=== PATIENT | female | born 1945 | race Caucasian/White ===

== ENCOUNTER 2016-08-31 09:44 | Inpatient (IN) | payer MEDICARE ==
[2016-08-31] MEDS ORDERED: IPRATROPIUM-ALBUTEROL 3 ML NEB INHALATION STA (10:10)
--- NOTE | 2016-08-31 10:14 | ED ---
General Adult HPI - General Chief complaint: Arrhythmia/Palpitations Stated complaint: rapid heart rate Time Seen by Provider: 08/31/16 09:50 Source: patient, RN notes reviewed Mode of arrival: wheelchair Limitations: physical limitation - History of Present Illness Initial comments: This is a 71-year-old female presents emergency Department complaining shortness of breath per patient states she has no history of CHF and no history of COPD per patient states he started having intermittent shortness of breath last week and then over the last 2-3 days is become constant and getting slowly worse. Patient states she can barely catch her breath at this point. Patient denies any chest pain or palpitations. Patient states she does have history of atrial fibrillation. Patient denies any recent fever chills or cough. Patient denies any leg edema or calf pain. Patient denies any headache patient denies numbness weakness. Patient denies any lightheadedness dizziness or near syncopal episode. Patient denies any abdominal pain patient denies nausea vomiting diarrhea - Related Data Home Medications Medication Instructions Recorded Confirmed DULoxetine HCL 60 mg PO BID 10/20/14 08/31/16 Flecainide [Tambocor] 50 mg PO Q12HR 10/20/14 08/31/16 Warfarin [Coumadin] 7.5 mg PO DAILY 10/20/14 08/31/16 cloNIDine HCL [Catapres] 0.1 mg PO BID 10/20/14 08/31/16 Aspirin 81 mg PO DAILY 06/08/15 08/31/16 amLODIPine [Norvasc] 10 mg PO DAILY 06/08/15 08/31/16 Oxybutynin Chloride [Oxybutynin 15 mg PO DAILY 07/11/16 08/31/16 Chloride ER] Atenolol [Tenormin] 25 mg PO DAILY 08/23/16 08/31/16 Lovastatin [Mevacor] 40 mg PO HS 08/31/16 08/31/16 Potassium Chloride [Klor-Con 8] 8 meq PO DAILY 08/31/16 08/31/16 Tylenol Extra Strength 500/15ml Liq 5 ml PO DIRECTED PRN 08/31/16 08/31/16 Allergies Allergy/AdvReac Type Severity Reaction Status Date / Time No Known Allergies Allergy Verified 08/31/16 09:52 Review of Systems ROS Statement: Those systems with pertinent positive or pertinent negative responses have been documented in the HPI. ROS Other: All systems not noted in ROS Statement are negative. Past Medical History Past Medical History: Atrial Fibrillation, CVA/TIA, Hypertension, Liver Disease , Skin Disorder Additional Past Medical History / Comment(s): TIA x2,Hepatitis as a child, circulation problems with sores on legs, wound left lower leg History of Any Multi-Drug Resistant Organisms: None Reported Past Surgical History: Appendectomy, Cholecystectomy, Heart Catheterization, Hysterectomy, Orthopedic Surgery Additional Past Surgical History / Comment(s): Bilateral cataracts, arthroscopy both knees, carotid cath. Past Anesthesia/Blood Transfusion Reactions: No Reported Reaction Past Psychological History: No Psychological Hx Reported Smoking Status: Never smoker Past Alcohol Use History: None Reported Past Drug Use History: None Reported - Past Family History Mother Family Medical History: Dementia, Diabetes Mellitus Additional Family Medical History / Comment(s): age 89 Father Additional Family Medical History / Comment(s): age 70's from heart attack General Exam - General Exam Comments Initial Comments: GENERAL: Patient is well-developed and well-nourished. Patient is nontoxic and well- hydrated and is in mild distress. ENT: Neck is soft and supple. No significant lymphadenopathy is noted. Oropharynx is clear. Moist mucous membranes. Neck has full range of motion without eliciting any pain. EYES: The sclera were anicteric and conjunctiva were pink and moist. Extraocular movements were intact and pupils were equal round and reactive to light. Eyelids were unremarkable. PULMONARY: Patient had scattered expiratory wheezing no crackles were heard CARDIOVASCULAR: Patient irregular heartbeat at about 130 beats a minute. ABDOMEN: Soft and nontender with normal bowel sounds. No palpable organomegaly was noted. There is no palpable pulsatile mass. SKIN: Skin is clear with no lesions or rashes and otherwise unremarkable. NEUROLOGIC: Patient is alert and oriented x3. Cranial nerves II through XII are grossly intact. Motor and sensory are also intact. Normal speech, volume and content. Symmetrical smile. MUSCULOSKELETAL: Normal extremities with adequate strength and full range of motion. No lower extremity swelling or edema. No calf tenderness. LYMPHATICS: No significant lymphadenopathy is noted PSYCHIATRIC: Normal psychiatric evaluation. Limitations: physical limitation Course Vital Signs 08/31/16 08/31/16 08/31/16 09:50 10:28 11:10 Temperature 97.8 F Pulse Rate 115 H 111 H 103 H Respiratory 20 Rate Blood Pressure 122/80 O2 Sat by Pulse 86 L Oximetry 08/31/16 08/31/16 08/31/16 11:24 11:26 12:37 Temperature Pulse Rate 112 H 115 H 111 H Respiratory 18 18 Rate Blood Pressure 117/73 122/71 O2 Sat by Pulse 98 96 Oximetry Medical Decision Making - Medical Decision Making EKG shows atrial fibrillation with rapid ventricular response at 113 bpm QRS is 102 QT interval 374 QTC is 513. Patient's EKG shows no ST segment elevation or depression there is some T-wave inversions in leads 1 and aVL and some flattening of the T waves in precordial leads throughout Chest x-ray shows pulmonary edema. I went back into reevaluate the patient I told her her chest x-ray showed pulmonary edema and I will be giving her Lasix patient states she has stopped taking that at home because she was urinating too much. I gave the patient Lasix in the ER Nitropaste and admitted the patient spoke with Dr. Sanchez and wrote admitting orders. Gave patient Lasix and nitro paste on the floor. - Lab Data Result diagrams: 08/31/16 10:27 08/31/16 10:27 Lab Results 08/31/16 08/31/16 08/31/16 Range/Units 10:27 10:27 10:27 WBC 6.4 (3.8-10.6) k/uL RBC 3.98 (3.80-5.40) m/uL Hgb 12.3 (11.4-16.0) gm/dL Hct 39.4 (34.0-46.0) % MCV 99.0 (80.0-100.0) fL MCH 31.0 (25.0-35.0) pg MCHC 31.3 (31.0-37.0) g/dL RDW 13.4 (11.5-15.5) % Plt Count 170 (150-450) k/uL Neutrophils % 78 % Lymphocytes % 10 % Monocytes % 8 % Eosinophils % 1 % Basophils % 0 % Neutrophils # 5.0 (1.3-7.7) k/uL Lymphocytes # 0.6 L (1.0-4.8) k/uL Monocytes # 0.5 (0-1.0) k/uL Eosinophils # 0.1 (0-0.7) k/uL Basophils # 0.0 (0-0.2) k/uL Hypochromasia Slight PT (9.0-12.0) sec INR (<1.1) APTT (22.0-30.0) sec D-Dimer (<0.60) mg/L FEU Sodium 146 H (137-145) mmol/L Potassium 4.5 (3.5-5.1) mmol/L Chloride 105 (98-107) mmol/L Carbon Dioxide 28 (22-30) mmol/L Anion Gap 13 mmol/L BUN 17 (7-17) mg/dL Creatinine 0.63 (0.52-1.04) mg/dL Est GFR (MDRD) Af Amer >60 (>60 ml/min/1.73 sqM) Est GFR (MDRD) Non-Af >60 (>60 ml/min/1.73 sqM) Glucose 97 (74-99) mg/dL Calcium 8.7 (8.4-10.2) mg/dL Magnesium 1.9 (1.6-2.3) mg/dL Total Bilirubin 1.6 H (0.2-1.3) mg/dL AST 39 H (14-36) U/L ALT 36 (9-52) U/L Alkaline Phosphatase 156 H (38-126) U/L Total Creatine Kinase 85 (30-135) U/L CK-MB (CK-2) 1.2 (0.0-2.4) ng/mL CK-MB (CK-2) Rel Index 1.4 Troponin I <0.012 (0.000-0.034) ng/mL NT-Pro-B Natriuret Pep pg/mL Total Protein 7.7 (6.3-8.2) g/dL Albumin 3.4 L (3.5-5.0) g/dL 08/31/16 08/31/16 Range/Units 10:27 10:27 WBC (3.8-10.6) k/uL RBC (3.80-5.40) m/uL Hgb (11.4-16.0) gm/dL Hct (34.0-46.0) % MCV (80.0-100.0) fL MCH (25.0-35.0) pg MCHC (31.0-37.0) g/dL RDW (11.5-15.5) % Plt Count (150-450) k/uL Neutrophils % % Lymphocytes % % Monocytes % % Eosinophils % % Basophils % % Neutrophils # (1.3-7.7) k/uL Lymphocytes # (1.0-4.8) k/uL Monocytes # (0-1.0) k/uL Eosinophils # (0-0.7) k/uL Basophils # (0-0.2) k/uL Hypochromasia PT 28.8 H (9.0-12.0) sec INR 3.0 (<1.1) APTT 33.8 H (22.0-30.0) sec D-Dimer 1.06 H (<0.60) mg/L FEU Sodium (137-145) mmol/L Potassium (3.5-5.1) mmol/L Chloride (98-107) mmol/L Carbon Dioxide (22-30) mmol/L Anion Gap mmol/L BUN (7-17) mg/dL Creatinine (0.52-1.04) mg/dL Est GFR (MDRD) Af Amer (>60 ml/min/1.73 sqM) Est GFR (MDRD) Non-Af (>60 ml/min/1.73 sqM) Glucose (74-99) mg/dL Calcium (8.4-10.2) mg/dL Magnesium (1.6-2.3) mg/dL Total Bilirubin (0.2-1.3) mg/dL AST (14-36) U/L ALT (9-52) U/L Alkaline Phosphatase (38-126) U/L Total Creatine Kinase (30-135) U/L CK-MB (CK-2) (0.0-2.4) ng/mL CK-MB (CK-2) Rel Index Troponin I (0.000-0.034) ng/mL NT-Pro-B Natriuret Pep 1630 pg/mL Total Protein (6.3-8.2) g/dL Albumin (3.5-5.0) g/dL Critical Care Time Critical Care Time: Yes Total Critical Care Time: 35 Disposition Clinical Impression: Acute pulmonary edema Disposition: ADMITTED IP TO THIS [facility] Time of Disposition: 13:01
[2016-08-31 10:41] LABS: Basophils % (A) 0 %; CH 30.5; Eosinophils # (A) 0.1 k/uL (0-0.7); Eosinophils % (A) 1 %; HCT 39.4 % (34.0-46.0); HDW 2.59; HGB 12.3 gm/dL (11.4-16.0); Hypochromasia Slight; Luc # (Auto) 0.15; Luc % (Auto) 2; Lymphocytes # (A) 0.6 k/uL (1.0-4.8); Lymphocytes % (A) 10 %; MCHC 31.3 g/dL (31.0-37.0); Mean Platelet Volume 7.7; Monocytes # (A) 0.5 k/uL (0-1.0); Monocytes % (A) 8 %; Neutrophils % (A) 78 %; RBC 3.98 m/uL (3.80-5.40); RDW 13.4 % (11.5-15.5); WBC 6.4 k/uL (3.8-10.6); WBC (Perox) 5.91
--- NOTE | 2016-08-31 10:47 | XR ---
EXAMINATION TYPE: XR chest 2V DATE OF EXAM: 08/31/2016 10:42 AM COMPARISON: NONE HISTORY: Difficulty breathing FINDINGS: There are bilateral pleural effusions with cardiomegaly and bibasilar infiltrate. There is a diffuse interstitial pattern. Atherosclerotic change aorta. IMPRESSION: 1. Correlate for CHF with bilateral effusion.
[2016-08-31 10:50] LABS: ALT 36 U/L (9-52); AST 39 U/L (14-36); Alkaline Phosphatase 156 U/L (38-126); Anion Gap 13 mmol/L; Blood Urea Nitrogen 17 mg/dL (7-17); Calcium 8.7 mg/dL (8.4-10.2); Carbon Dioxide 28 mmol/L (22-30); Chloride 105 mmol/L (98-107); Glucose 97 mg/dL (74-99); Magnesium 1.9 mg/dL (1.6-2.3); Non-African American GFR(MDRD) >60 (>60 ml/min/1.73 sqM); Potassium 4.5 mmol/L (3.5-5.1); Sodium 146 mmol/L (137-145); Total Bilirubin 1.6 mg/dL (0.2-1.3); Total Protein 7.7 g/dL (6.3-8.2)
[2016-08-31 10:58] LABS: Partial Thromboplastin Time 33.8 sec (22.0-30.0); Prothrombin Time 28.8 sec (9.0-12.0)
[2016-08-31 11:10] LABS: Creatine Kinase 85 U/L (30-135)
[2016-08-31 11:23] LABS: Creatine Kinase MB 1.2 ng/mL (0.0-2.4); Troponin I <0.012 ng/mL (0.000-0.034)
[2016-08-31] MEDS ORDERED: NITROGLYCERIN OINT 1 INCH/GM PACKET TOPICAL STA (11:35)
[2016-08-31] MEDS ORDERED: RX INFO: IV CONTRAST WAS GIVEN 1 EACH MISC MISCELLANE PRN (11:35)
[2016-08-31] MEDS ORDERED: FUROSEMIDE 10 MG/ML 2 ML VIAL IV STA (11:35)
[2016-08-31] MEDS ORDERED: HYDROmorphone 1 MG/ML 1 ML SYRINGE IVP STA (12:41)
[2016-08-31] MEDS ORDERED: ONDANSETRON 4 MG/2 ML VIAL IVP STA (12:42)
--- NOTE | 2016-08-31 12:46 | CT ---
EXAMINATION TYPE: CT chest angio for PE DATE OF EXAM: 08/31/2016 12:33 PM COMPARISON: NONE HISTORY: Patient has rapid heart beat. Elevated d-dimer CT DLP: 769.2 mGycm Automated exposure control for dose reduction was used. CONTRAST: CT Chest for pulmonary embolism performed with with IV Contrast, patient injected with 100 mL of Omni paque 350. FINDINGS: LUNGS: Heart is enlarged and there is bilateral pleural effusions and diffuse interstitial pattern co rrelate for CHF. No pneumothorax. 8 mm subpleural nodule seen within the left upper lobe likely is po stinflammatory be followed on short-term basis. Coronary artery calcification noted.. MEDIASTINUM: Central pulmonary arteries enhance normally. Secondary and distal branches are nondiagno stic in assessment due to poor opacification. OTHER: Hypertrophic and degenerative change of the spine noted. Postsurgical change involving the ga llbladder fossa. IMPRESSION: 1. Findings most typical of CHF. 2. Central pulmonary arteries enhance normally. Remaining portion of the pulmonary arteries are subop timally opacified (likely secondary to cardiac status) and nondiagnostic for pulmonary embolism. 3. There is a 8 mm subpleural left upper lobe pulmonary nodule likely postinflammatory. Short-term f ollow-up CT suggested in 3-6 month basis.
[2016-08-31] MEDS ORDERED: ACETAMINOPHEN ORAL SUSP 160 MG/5 ML CUP PO PRN (18:38)
[2016-08-31] MEDS: NITROGLYCERIN OINT 1 INCH/GM PACKET TOPICAL SCH ×2 (18:56→22:34)
[2016-08-31] MEDS: FUROSEMIDE 10 MG/ML 4 ML VIAL IV SCH ×2 (18:56→22:26)
[2016-08-31] MEDS: SILVER sulfADIAZINE Cream 400 GM 1 APPLIC APPLIC TOPICAL SCH (22:20)
[2016-08-31] MEDS: cloNIDine HCL 0.1 MG TAB PO SCH (22:22)
[2016-08-31] MEDS: ATORVASTATIN 10 MG TAB PO SCH (22:22)
[2016-08-31] MEDS: DULoxetine HCL 60 MG CAPSULE.DR PO SCH (22:22)
[2016-08-31] MEDS: FLECAINIDE 50 MG TAB PO SCH (22:22)
[2016-09-01] MEDS ORDERED: TEMAZEPAM 15 MG CAP PO PRN (01:01)
[2016-09-01] MEDS ORDERED: ALPRAZolam 0.25 MG TAB PO PRN (01:01)
[2016-09-01] MEDS ORDERED: HYDROcodone/APAP 5-325MG 1 EACH TAB PO PRN (01:01)
[2016-09-01 06:49] LABS: INR 2.2 (<1.1)
[2016-09-01] MEDS: FUROSEMIDE 10 MG/ML 4 ML VIAL IV SCH ×3 (08:15→23:09)
[2016-09-01] MEDS: DULoxetine HCL 60 MG CAPSULE.DR PO SCH ×2 (09:15→20:35)
[2016-09-01] MEDS: ATENOLOL 25 MG TAB PO SCH (09:15)
[2016-09-01] MEDS: OXYBUTYNIN 15 MG TAB.ER.24 PO SCH (09:15)
[2016-09-01] MEDS: FLECAINIDE 50 MG TAB PO SCH (09:15)
[2016-09-01] MEDS: cloNIDine HCL 0.1 MG TAB PO SCH ×2 (09:15→20:35)
[2016-09-01] MEDS: ASPIRIN 81 MG CHEW PO SCH (09:15)
[2016-09-01] MEDS: amLODIPine 10 MG TAB PO SCH (09:15)
[2016-09-01] MEDS: NITROGLYCERIN OINT 1 INCH/GM PACKET TOPICAL SCH ×4 (09:16→20:35)
[2016-09-01] MEDS: POTASSIUM CHLORIDE ER 10 MEQ TAB.ER.PRT PO SCH (09:16)
[2016-09-01] MEDS: SILVER sulfADIAZINE Cream 400 GM 1 APPLIC APPLIC TOPICAL SCH (09:20)
--- NOTE | 2016-09-01 12:09 | HP ---
DATE OF ADMISSION: DATE OF SERVICE: 08/31/2016 Chief complaints are shortness of breath and palpitations. HISTORY OF PRESENT ILLNESS: This 71-year-old woman with a past medical history of multiple medical problems, including history of atrial fibrillation, CVA/TIA, hypertension, hyperlipidemia, history of DJD, history of TIA, cholecystectomy, history of bilateral cataracts being followed by Dr. Bhatia in the outpatient setting is complaining of shortness of breath which is intermittent for the last 2 days and getting worse and the patient came to [facility] and admitted for further evaluation and treatment. The patient had CHF in the chest x-ray and patient admitted for further evaluation and treatment. There is no history of fever, chills or rigors. No history of headaches, loss of consciousness at this time. The patient also had rapid heart rate and pulse ox 86% on room air, even the patient did not have any respiratory difficulties. The d-dimer was 1.06 but; however, CT was also done which showed findings typical of CHF and central pulmonary arteries are normal and otherwise, no evidence of significant pulmonary embolism and an 8 mm subpleural nodule was noted post inflammatory. PAST MEDICAL HISTORY: History of atrial fibrillation, history of CVA/TIA, hypertension, hyperlipidemia, liver disease, history of DJD, history of skin disorder, appendectomy, cholecystectomy. Medications prior to admission include home medications are: 1. Coumadin 5 mg as before and 7.5 mg as before. 2. Catapres 0.1 p.o. b.i.d. 3. Norvasc 10 mg p.o. daily. 4. Tylenol 5 mL p.r.n. 5. Klor-Con 8 mg p.o. daily. 6. Oxybutynin 15 mg p.o. daily. 7. Mevacor 40 mg q.h.s. 8. Tambocor 50 mg p.o. b.i.d. 9. Cymbalta 60 mg p.o. b.i.d. 10. Tenormin 25 mg daily. 11. Aspirin 81 mg daily. Allergies are none. FAMILY HISTORY: History of dementia and diabetes in the family. SOCIAL HISTORY: No history of smoking. No history of alcohol. REVIEW OF SYSTEMS: ENT: No diminished hearing or diminished vision. CARDIOVASCULAR: No angina. RESPIRATORY: As mentioned earlier. GI: No nausea. : No dysuria. NERVOUS SYSTEM: No numbness or weakness. ALLERGY/IMMUNOLOGY: No asthma or hayfever. MUSCULOSKELETAL: As mentioned earlier. DERMATOLOGY: Negative. ENDOCRINE: As mentioned earlier. CONSTITUTIONAL: As mentioned. DERMATOLOGY: Negative. PSYCHIATRY: As mentioned earlier. PHYSICAL EXAM: Patient is alert and oriented x3. Pulse 115, blood pressure 122/80, respirations 20, temperature is 97.8, pulse ox 86% on room air. HEENT: Conjunctivae normal. NECK: No jugular venous distention. No carotid bruit, no lymph node enlargement. No thyroid enlargement. CARDIOVASCULAR SYSTEM: S1, S2, muffled. RESPIRATORY: Breath sounds diminished at the bases. A few scattered rhonchi, no crackles. Abdomen is soft, nontender, no mass palpable. EXTREMITIES: Legs no edema, no swelling. NERVOUS SYSTEM: Higher functions as mentioned earlier, moves all 4 limbs, no focal motor deficits. LYMPHATICS: No lymph node enlargement in the neck, groin, axillae. SKIN: No ulcer, rash or bleeding. LABS: CBC within normal limits. PT is 28. INR is 3. Sodium is 146. Total bilirubin is 1.6 and alk phos 156, albumin is 3.4. IMPRESSION: 1. Shortness of breath with possible congestive heart failure acute exacerbation, with ejection fraction unknown. 2. History of atrial fibrillation. 3. Cerebrovascular accident, transient ischemic attack. 4. Hypertension. 5. Hyperlipidemia. 6. History of degenerative joint disease. 7. History of transient ischemic attack. 8. Hepatitis as a child. 9. History of appendectomy. 10. History of cholecystectomy. 11. History of degenerative joint disease. 12. History of bilateral cataracts. 13. FULL CODE. RECOMMENDATION: In this 71-year-old woman who presented with multiple complex medical issues, will monitor the patient closely. Continue with monitoring and continued with the symptomatic treatment. Otherwise, at this time will monitor the patient closely and will initiate IV diuretics. Monitor fluid and electrolyte balance closely. The patient is on Lasix 40 mg IV q.8. Coumadin has been noted. Will monitor PT and INR closely. Other than that, copy of this will be forwarded to Dr. Bhatia who is the primary physician. Will monitor the PT, INR also. See orders for details. Symptomatic treatment also will be provided. Once again, the prognosis guarded because of multiple complex medial issues. Further recommendations to follow.
[2016-09-01] MEDS ORDERED: DEXTROSE 5% IN WATER 100 ML with AMIODARONE 150 MG IV ONE (13:40)
--- NOTE | 2016-09-01 13:49 | P.CRDCN ---
History of Present Illness Consult date: 09/01/16 History of present illness: This is a 71-year-old female with history of paroxysmal atrial fibrillation, CVA /TIA, hypertension and hyperlipidemia has been experiencing increasing shortness of breath and rapid respiratory rate for the last several weeks but more so over the last 3 days. Apparently she was seen by Dr. Buchanan in the office yesterday and refer her to the emergency room. Patient had chest x-rays and computed tomography scan in the emergency room. The findings were consistent with congestive heart failure. Patient was started on IV Lasix and seems to be diuresing well seemed to be less short of breath today. Patient also had A. fib with a rapid ventricular response. Patient was being treated with flecainide in the past for control of atrial fibrillation. Because of hypertension and CHF and will discontinue flecainide and start the patient on amiodarone bolus and drip. Beta blockers and diuretics will be continued. An echocardiogram will be done. We'll also get thyroid function studies. Previous echocardiogram from 2014 showed preserved LV function with moderate mitral regurgitation. Review of Systems REVIEW OF SYSTEMS: CONSTITUTIONAL:. Patient is doing well. No complaints of fever or chills EYES: Denies diplopia, blurring of vision EARS, NOSE, MOUTH, THROAT: Denies headaches, denies sore throat. CARDIOVASCULAR: Denies chest pain, denies shortness of breath, denies palpitations RESPIRATORY: Denies shortness of breath, denies cough. GASTROINTESTINAL: Denies change in appetite, denies abdominal pain, denies diarrhea GENITOURINARY: Denies hematuria, denies infections. MUSKULOSKELETAL: Denies pain, denies swelling. Denies any cramps or claudication INTEGUMENTARY: Denies rash, denies eczema. NEUROLOGICAL: Denies focal weakness, or visual disturbance. Denies any dizziness or syncope PSYCHIATRIC: Denies anxiety, denies depression. HEMATOLOGIC/LYMPHATIC: Denies any bleeding, denies enlarged lymph nodes. Past Medical History Past Medical History: Atrial Fibrillation, CVA/TIA, Hyperlipidemia, Hypertension , Liver Disease, Osteoarthritis (OA), Skin Disorder Additional Past Medical History / Comment(s): TIA x2,Hepatitis as a child, circulation problems with sores on legs, wound left lower leg GOES TO [facility] ON MONDAYS. INCONT OF URINE WEARS A PAD, MURMUR,SINUS PROBLEMS History of Any Multi-Drug Resistant Organisms: None Reported Past Surgical History: Appendectomy, Cholecystectomy, Heart Catheterization, Hysterectomy, Orthopedic Surgery Additional Past Surgical History / Comment(s): Bilateral cataracts, arthroscopy both knees(PAST MED HX STATED LT ACL REPAIR), CARDIAC cath.D&C Past Anesthesia/Blood Transfusion Reactions: No Reported Reaction Past Psychological History: No Psychological Hx Reported Smoking Status: Never smoker Past Alcohol Use History: None Reported Past Drug Use History: None Reported - Past Family History Mother Family Medical History: Dementia, Diabetes Mellitus Additional Family Medical History / Comment(s): age 89 Father Additional Family Medical History / Comment(s): age 70's from heart attack Medications and Allergies Home Medications Medication Instructions Recorded Confirmed Type DULoxetine HCL 60 mg PO BID 10/20/14 08/31/16 History Flecainide [Tambocor] 50 mg PO Q12HR 10/20/14 08/31/16 History Warfarin [Coumadin] 7.5 mg PO DIRECTED 10/20/14 08/31/16 History cloNIDine HCL [Catapres] 0.1 mg PO BID 10/20/14 08/31/16 History Aspirin 81 mg PO DAILY 06/08/15 08/31/16 History amLODIPine [Norvasc] 10 mg PO DAILY 06/08/15 08/31/16 History Oxybutynin Chloride [Oxybutynin 15 mg PO DAILY 07/11/16 08/31/16 History Chloride ER] Atenolol [Tenormin] 25 mg PO DAILY 08/23/16 08/31/16 History Lovastatin [Mevacor] 40 mg PO HS 08/31/16 08/31/16 History Potassium Chloride [Klor-Con 8] 8 meq PO DAILY 08/31/16 08/31/16 History Tylenol Extra Strength 500/15ml Liq 5 ml PO DIRECTED PRN 08/31/16 08/31/16 History Warfarin [Coumadin] 5 mg PO DIRECTED 08/31/16 08/31/16 History Allergies Allergy/AdvReac Type Severity Reaction Status Date / Time No Known Allergies Allergy Verified 08/31/16 09:52 Physical Exam Vitals: Vital Signs Temp Pulse Pulse Resp BP BP Pulse Ox 09/01/16 09:15 95 09/01/16 04:00 97.1 F L 104 H 18 110/71 95 09/01/16 00:00 98 F 122 H 18 117/63 91 L 08/31/16 20:05 95 08/31/16 20:00 98.3 F 121 H 18 139/86 82 L 08/31/16 19:08 102 H 08/31/16 17:13 96.9 F L 116 H 20 119/71 98 08/31/16 15:00 116 H 20 120/76 98 08/31/16 14:00 98.5 F 112 H 20 125/72 98 Intake and Output 08/31/16 09/01/16 09/01/16 22:59 06:59 14:59 Intake Total 0 562 Output Total 375 400 200 Balance -375 -400 362 Intake: Oral 0 562 Output: Urine 375 400 200 Other: Voiding Method Toilet Toilet Bedside Commode Bedside Commode # Voids 3 Weight 117.8 kg 117.8 kg Patient Weight 09/02/16 06:59 Weight 117.8 kg GENERAL EXAM: Patient is alert and oriented and doesn't appear to be in any acute distress HEENT: Normocephalic. Normal reaction of pupils, equal size, normal range of extraocular motion. No erythema or exudates in the throat. NECK: No masses, no nuchal rigidity. CHEST: No chest wall deformity. LUNGS: Diminished breath sounds at bases HEART: S1 and S2 heard a regular heart sounds soft systolic murmur heard ABDOMEN: No hepatosplenomegaly, normal bowel sounds, no guarding or rigidity. SKIN: No rashes CENTRAL NERVOUS SYSTEM: No focal deficits. EXTREMITIES: Has ulcers which are chronic ,both legs are taped. Results 08/31/16 10:27 08/31/16 10:27 Coagulation 09/01/16 Range/Units 06:00 PT 21.0 H (9.0-12.0) sec Current Medications Generic Name Dose Route Start Last Admin Trade Name Freq PRN Reason Stop Dose Admin Acetaminophen 165 mg 08/31/16 18:38 Tylenol Oral Susp PO Q4H PRN Pain or Fever > 100.5 Acetaminophen/Hydrocodone Bitart 1 each 09/01/16 01:01 Hudson 5-325 PO Q6HR PRN Pain Alprazolam 0.25 mg 09/01/16 01:01 Xanax PO TID PRN Anxiety Amlodipine Besylate 10 mg 09/01/16 09:00 09/01/16 09:15 Norvasc PO 10 mg DAILY FRANKI Administration Aspirin 81 mg 09/01/16 09:00 09/01/16 09:15 Aspirin PO 81 mg DAILY FRANKI Administration Atenolol 25 mg 09/01/16 09:00 09/01/16 09:15 Tenormin PO 25 mg DAILY FRANKI Administration Atorvastatin Calcium 10 mg 08/31/16 21:00 08/31/16 22:22 Lipitor PO 10 mg HS FRANKI Administration Clonidine 0.1 mg 08/31/16 21:00 09/01/16 09:15 Catapres PO 0.1 mg BID FRANKI Administration Duloxetine HCl 60 mg 08/31/16 21:00 09/01/16 09:15 Cymbalta PO 60 mg BID FRANKI Administration Furosemide 40 mg 08/31/16 16:00 09/01/16 08:15 Lasix IV 40 mg Q8H FRANKI Administration Miscellaneous Information 1 each 08/31/16 11:35 08/31/16 12:32 Rx Info: Iv Contrast Was Given MISCELLANE 09/02/16 11:35 1 each DAILY PRN Administration Per Protocol Nitroglycerin 1 inch 08/31/16 18:00 09/01/16 13:07 Nitro-Bid Oint TOPICAL 1 inch QID [facility] Administration Oxybutynin Chloride 15 mg 09/01/16 09:00 09/01/16 09:15 Ditropan Xl PO 15 mg DAILY FRANKI Administration Potassium Chloride 10 meq 09/01/16 09:00 09/01/16 09:16 K-Dur 10 PO 10 meq DAILY FRANKI Administration Silver Sulfadiazine 1 applic 08/31/16 20:45 09/01/16 09:20 Silvadene Cream TOPICAL 1 applic DAILY FRANKI Administration Temazepam 15 mg 09/01/16 01:01 Restoril PO HS PRN Insomnia Warfarin Sodium 7.5 mg 09/01/16 18:00 Coumadin PO [id number]@1800 FRANKI Warfarin Sodium 5 mg 09/02/16 18:00 Coumadin PO TuFr@1800 FRANKI Intake and Output 08/31/16 09/01/16 09/01/16 22:59 06:59 14:59 Intake Total 0 562 Output Total 375 400 200 Balance -375 -400 362 Intake: Oral 0 562 Output: Urine 375 400 200 Other: Voiding Method Toilet Toilet Bedside Commode Bedside Commode # Voids 3 Weight 117.8 kg 117.8 kg Patient Weight 09/02/16 06:59 Weight 117.8 kg EKG Interpretations (text) Atrial fibrillation with a rapid ventricular response Assessment and Plan (1) Congestive heart failure Status: Acute (2) Atrial fibrillation with RVR Status: Acute (3) Hypertension Status: Acute (4) Venous stasis ulcer of right lower extremity Status: Acute Plan: At this point I will continue with current medical therapy except will discontinue flecainide. I'll get an echocardiogram to assess LV function. I will also start her on amiodarone bolus and drip. Further recommendations depend upon clinical course. We'll also obtain thyroid function studies
[2016-09-01] MEDS: AMIODARONE 450 MG in DEXTROSE 5% IN WATER 250 ML IV SCH ×4 (17:00→20:50)
[2016-09-01] MEDS: WARFARIN 7.5 MG TAB PO SCH (17:17)
[2016-09-01] MEDS: ATORVASTATIN 10 MG TAB PO SCH (20:35)
[2016-09-02] MEDS: AMIODARONE 450 MG in DEXTROSE 5% IN WATER 250 ML IV SCH ×4 (05:26→15:27)
[2016-09-02 05:49] LABS: Basophils % (A) 0 %; CH 30.6; Eosinophils # (A) 0.2 k/uL (0-0.7); Eosinophils % (A) 3 %; HCT 35.4 % (34.0-46.0); HDW 2.49; HGB 11.2 gm/dL (11.4-16.0); Hypochromasia Slight; Luc # (Auto) 0.18; Luc % (Auto) 3; Lymphocytes # (A) 0.7 k/uL (1.0-4.8); Lymphocytes % (A) 12 %; MCH 31.4 pg (25.0-35.0); MCHC 31.7 g/dL (31.0-37.0); Mean Platelet Volume 7.8; Monocytes # (A) 0.5 k/uL (0-1.0); Monocytes % (A) 10 %; Neutrophils # (A) 4.1 k/uL (1.3-7.7); Neutrophils % (A) 72 %; RBC 3.58 m/uL (3.80-5.40); RDW 13.4 % (11.5-15.5); WBC 5.7 k/uL (3.8-10.6); WBC (Perox) 6.15
[2016-09-02 05:53] LABS: INR 2.2 (<1.1); Prothrombin Time 21.2 sec (9.0-12.0)
[2016-09-02 06:06] LABS: Anion Gap 10 mmol/L; Blood Urea Nitrogen 22 mg/dL (7-17); Calcium 8.5 mg/dL (8.4-10.2); Carbon Dioxide 31 mmol/L (22-30); Chloride 101 mmol/L (98-107); Glucose 100 mg/dL (74-99); Non-African American GFR(MDRD) >60 (>60 ml/min/1.73 sqM); Potassium 4.1 mmol/L (3.5-5.1); Sodium 142 mmol/L (137-145)
[2016-09-02] MEDS: FUROSEMIDE 10 MG/ML 4 ML VIAL IV SCH ×2 (08:56→16:29)
[2016-09-02] MEDS: NITROGLYCERIN OINT 1 INCH/GM PACKET TOPICAL SCH ×4 (08:56→22:41)
[2016-09-02] MEDS: ATENOLOL 25 MG TAB PO SCH (08:56)
[2016-09-02] MEDS: amLODIPine 10 MG TAB PO SCH (08:56)
[2016-09-02] MEDS: DULoxetine HCL 60 MG CAPSULE.DR PO SCH ×2 (08:56→22:42)
[2016-09-02] MEDS: ASPIRIN 81 MG CHEW PO SCH (08:56)
[2016-09-02] MEDS: cloNIDine HCL 0.1 MG TAB PO SCH ×2 (08:56→22:41)
[2016-09-02] MEDS: OXYBUTYNIN 15 MG TAB.ER.24 PO SCH (08:57)
[2016-09-02] MEDS: POTASSIUM CHLORIDE ER 10 MEQ TAB.ER.PRT PO SCH (08:57)
[2016-09-02] MEDS: SILVER sulfADIAZINE Cream 400 GM 1 APPLIC APPLIC TOPICAL SCH (08:57)
[2016-09-02] MEDS ORDERED: Magnesium Replacement Protocol 1 EACH MISC MISCELLANE PRN (09:03)
[2016-09-02] MEDS: MAGNESIUM SULFATE-D5W PMX 1 GM in DEXTROSE/WATER 1 100ML.BAG IVPB SCH ×2 (10:15→11:36)
--- NOTE | 2016-09-02 10:41 | PN ---
DATE OF SERVICE: 09/01/2016 This 71-year-old woman was admitted with congestive heart failure acute exacerbation, also history of atrial fibrillation. Chest CT was also done, which showed findings typical of congestive heart failure. Cardiology evaluation in progress at this time. 2-D echo has been ordered. Flecainide has been discontinued. On exam, alert and oriented x4. Pulse 122, blood pressure 130/87, respirations 18, temperature 97.2, pulse ox 80% on room air. HEENT: Conjunctivae normal. NECK: No jugular venous distention. CARDIOVASCULAR: S1 and S2, muffled. RESPIRATORY: Breath sounds diminished at the bases. Bilateral scattered rhonchi and crackles. ABDOMEN: Soft, nontender. LEGS: No edema, no swelling. NERVOUS SYSTEM: No focal deficits. LABS: d-dimer 1.6, total bilirubin is 1.6. ASSESSMENT: 1. Shortness of breath with possible congestive heart failure acute exacerbation with ejection fraction unknown with possible acute hypoxic respiratory failure. 2. History atrial fibrillation. 3. History of cerebrovascular accident, transient ischemic attack. 4. Hypertension. 5. Hyperlipidemia. 6. No evidence of pulmonary embolism. 7. History of degenerative joint disease. 8. History of transient ischemic attack. 9. History of hepatitis as a child. 10. History of appendectomy. 11. History of cholecystectomy. 12. History of degenerative joint disease. 13. History of bilateral cataracts. 14. FULL CODE. RECOMMENDATIONS AND DISCUSSION: I recommend to continue the current medications, continue monitoring and symptomatic treatment. Otherwise at this time I recommend continue with the diuretics. Repeat labs. Otherwise, continue to monitor. Guarded prognosis. Further recommendations to follow.
--- NOTE | 2016-09-02 10:52 | ECHOF ---
Referral Reason:Chest pain and cardiomyopathy MEASUREMENTS -------- HEIGHT: 167.6 cm WEIGHT: 117.5 kg BP: RVIDd: 3.1 cm (< 3.3) IVSd: 1.0 cm (0.6 - 1.1) LVIDd: 4.5 cm (3.9 - 5.3) LVPWd: 1.3 cm (0.6 - 1.1) IVSs: 1.8 cm LVIDs: 3.1 cm LVPWs: 1.6 cm LAESV Index (A-L): 41.18 ml/m Ao Diam: 3.1 cm (2.0 - 3.7) AV Cusp: 1.7 cm (1.5 - 2.6) LA Diam: 3.6 cm (2.7 - 3.8) RAP: 5.00 mmHg RVSP: 31.81 mmHg FINDINGS -------- Atrial fibrillation. This was a technically difficult study with suboptimal views. Left ventricular wall thickness is normal. There is moderate global hypokinesis of LV . Overall left ventricular systolic function is moderate-severely impaired with, an EF between 30 - 35 %. RV Promident LA is severely dilated >40 ml/m2 RA appears enlarged. 1.5mg of Definity was utilized for enhancement of images Aortic valve is trileaflet and is mildly thickened. The mitral valve leaflets are mildly thickened. Severe mitral regurgitation is present , predominately a posteriorly directed jet. Severe tricuspid regurgitation present. The right ventricular systolic pressure, as measured by Doppler, is 31.81mmHg. Pulmonic valve appears structurally normal. The aortic root size is normal. The pericardium is normal. CONCLUSIONS -------- 1. Atrial fibrillation. 2. Aortic valve is trileaflet and is mildly thickened. 3. The mitral valve leaflets are mildly thickened. 4. Severe mitral regurgitation is present. 5. , predominately a posteriorly directed jet. 6. Severe tricuspid regurgitation present. 7. The right ventricular systolic pressure, as measured by Doppler, is 31.81mmHg. 8. Pulmonic valve appears structurally normal. 9. The aortic root size is normal. 10. The pericardium is normal. 11. This was a technically difficult study with suboptimal views. 12. Left ventricular wall thickness is normal. 13. There is moderate global hypokinesis of LV . 14. Overall left ventricular systolic function is moderate-severely impaired with, an EF between 30 - 35 %. 15. RV Promident 16. LA is severely dilated >40 ml/m2 17. RA appears enlarged. 18. 1.5mg of Definity was utilized for enhancement of images SSDS MK 2 ADVANCED OPERATOR: Alma Mcmillan RDCS
--- NOTE | 2016-09-02 15:58 | P.PN ---
Subjective This is a 71-year-old female with history of paroxysmal atrial fibrillation, CVA /TIA, hypertension and hyperlipidemia has been experiencing increasing shortness of breath and rapid respiratory rate for the last several weeks but more so over the last 3 days. Apparently she was seen by Dr. Buchanan in the office and referred her to the emergency room. Patient had chest x-rays and computed tomography scan in the emergency room. The findings were consistent with congestive heart failure. Patient was started on IV Lasix and seems to be diuresing well seemed to be less short of breath today. Patient also had A. fib with a rapid ventricular response. Patient diuresed well and IV Lasix through the night, weight today is down 1 kg. Continues to be on IV amiodarone. Objective - Vital Signs Vital signs: Vital Signs Temp 98.2 F 09/02/16 12:00 Pulse 94 09/02/16 12:00 Resp 16 09/02/16 12:00 BP 112/75 09/02/16 12:00 Pulse Ox 99 09/02/16 14:36 Intake & Output 09/01/16 09/02/16 09/02/16 18:59 06:59 18:59 Intake Total 682 1460.810 354 Output Total 300 1050 Balance 382 1460.810 -696 Weight 117.8 kg 116.3 kg Intake: IV 540 0.9 240 Amiodarone 450 mg In 200 Dextrose 5% in Water 250 ml @ 1 MG/MIN 34.53 mls/ hr IV .Q7H31M FRANKI Rx#: [id number] Dextrose 5% in Water 100 100 ml @ 618 mls/hr IV .Q10M ONE with Amiodarone 150 mg Rx#:[id number] Intake, IV Titration 320.810 Amount Amiodarone 450 mg In 320.810 Dextrose 5% in Water 250 ml @ 1 MG/MIN 34.53 mls/ hr IV .Q7H31M FRANKI Rx#: [id number] Oral 682 600 354 Output: Urine 300 1050 Other: Voiding Method Toilet Toilet Toilet Bedside Commode Bedside Commode # Voids 1 1 1 - Exam PHYSICAL EXAMINATION: HEENT: Head is atraumatic, normocephalic. Pupils equal, round. Neck is supple. There is no elevated jugular venous pressure. HEART EXAMINATION: S1 and S2 systolic murmur is heard. CHEST EXAMINATION: Lungs reveal diminished air entry to bilateral bases. ABDOMEN: Soft, nontender. Bowel sounds are heard. No organomegaly noted. EXTREMITIES: 2+ peripheral pulses with bilateral wraps in place. . NEUROLOGIC patient is awake, alert and oriented -3. . - Labs CBC & Chem 7: 09/02/16 05:32 09/02/16 05:32 Labs: Abnormal Lab Results - Last 24 Hours (Table) 09/02/16 09/02/16 09/02/16 Range/Units 05:32 05:32 05:32 RBC 3.58 L (3.80-5.40) m/uL Hgb 11.2 L (11.4-16.0) gm/dL Lymphocytes # 0.7 L (1.0-4.8) k/uL PT 21.2 H (9.0-12.0) sec Carbon Dioxide 31 H (22-30) mmol/L BUN 22 H (7-17) mg/dL Glucose 100 H (74-99) mg/dL Assessment and Plan (1) Systolic CHF, acute on chronic Status: Acute (2) Atrial fibrillation with RVR Status: Acute (3) Hypertension Status: Acute (4) Venous stasis ulcer of right lower extremity Status: Acute (5) Chronic a-fib Status: Acute Plan: From cardiology's perspective, we will recommend to continue current dose of IV Lasix. We will also discontinue the IV amiodarone and start the patient on by mouth amiodarone. Check lytes BUN and creatinine in the morning. INR stable at 2.2. DNP note has been reviewed, I agree with a documented findings and plan of care. Patient was seen and examined.
[2016-09-02] MEDS: AMIODARONE 200 MG TAB PO SCH ×2 (16:29→22:41)
--- NOTE | 2016-09-02 17:55 | XR ---
EXAMINATION TYPE: XR chest 1V portable DATE OF EXAM: 09/02/2016 5:50 PM COMPARISON: 08/31/2016 HISTORY: Heart failure TECHNIQUE: Single frontal view of the chest is obtained. FINDINGS: Heart is enlarged. There is pulmonary vascular congestion and pulmonary edema. There are b ilateral pleural effusions. There are chest leads. IMPRESSION: Congestive heart failure with pleural effusions. Pulmonary congestion is slightly worse than last exam.
[2016-09-02] MEDS ORDERED: WARFARIN 5 MG TAB PO SCH (18:00)
--- NOTE | 2016-09-02 18:57 | PN ---
DATE OF SERVICE: 09/02/2016 This 71-year-old woman was admitted with CHF, acute exacerbation, no chest pain, no palpitations. No fever. Cardiology is following the patient closely. Chest CT negative. Pulmonary PAST MEDICAL HISTORY: Reviewed. REVIEW OF SYSTEMS: CARDIOVASCULAR: No angina or palpitations. RESPIRATORY: As mentioned earlier. GASTROINTESTINAL: As mentioned earlier. GENITOURINARY: No dysuria. CENTRAL NERVOUS SYSTEM: No numbness, weakness. Current medications are reviewed and include: 1. Tylenol q.4 p.r.n. 2. [place] 5 mg q.6 p.r.n. 3. Xanax 0.25 t.i.d. 4. Cordarone 200 p.o. t.i.d. 5. Norvasc 10 mg p.o. daily. 6. Aspirin 81 mg p.o. daily. 7. Tenormin 25 mg daily. 8. Lipitor 10 mg q.h.s. 9. Catapres 0.1 p.o. b.i.d. 10. Cymbalta. 11. Lasix. 12. Nitro-Bid. 13. Silvadene. 14. Coumadin 7.5. On exam alert and oriented times three. Pulse 110, blood pressure 120/69, respiratory rate 18, temperature 98 degrees, pulse ox 97% on 3 liters. HEENT: Conjunctivae normal. NECK: No jugular venous distention. CARDIOVASCULAR: S1, S2 muffled. RESPIRATORY: Breath sounds diminished at the base. A few scattered rhonchi, no crackles. ABDOMEN: Soft. Obese. Nontender. No mass palpable. LEGS: No edema. CENTRAL NERVOUS SYSTEM: No focal deficits. LABS: WBC 5.7, hemoglobin 11.2. Sodium 142. ASSESSMENT: 1. Shortness of breath, possible congestive heart failure acute exacerbation, with ejection fraction 30 to 35% with acute on chronic systolic dysfunction. 2. LA Dilated for more than 40%. 3. Severe tricuspid regurgitation. 4. Severe mitral regurgitation. 5. Atrial fibrillation with fast ventricular rate present on admission. 6. History of cerebrovascular accident, transient ischemic attack. 7. Hypertension. 8. Hyperlipidemia. 9. No evidence of pulmonary embolism. 10. History of degenerative joint disease. 11. History of transient ischemic attack. 13. History of appendectomy. 14. History of cholecystectomy. 15. History of degenerative joint disease. 16. History of bilateral cataracts. 17. FULL CODE. Recommendations and discussion: In this 71-year-old woman who presented with multiple complex medical issues, we will monitor the patient closely. Continue the current medications, continue with symptomatic treatment. Otherwise, at this time closely follow with cardiology. The creatinine is normal at this time. The patient is on IV Lasix q.8. At this time, I would recommend to transition to p.o. Lasix and continue to monitor. Monitor PT and INR closely. Closely follow with cardiology. Guarded prognosis. Further recommendations to follow. We will also check a chest x-ray as well. recommend current medications, symptomatic treatment. See orders for further details. Guarded prognosis because of multiple complex medical issues. Further recommendations to follow. MTDD
[2016-09-02] MEDS: ATORVASTATIN 10 MG TAB PO SCH (22:41)
[2016-09-03 06:12] LABS: Basophils % (A) 0 %; CH 31.2; CHCM 31.4; Eosinophils # (A) 0.2 k/uL (0-0.7); Eosinophils % (A) 4 %; HCT 36.4 % (34.0-46.0); HDW 2.47; Hypochromasia Slight; Luc # (Auto) 0.14; Luc % (Auto) 3; Lymphocytes # (A) 0.9 k/uL (1.0-4.8); Lymphocytes % (A) 21 %; MCH 30.1 pg (25.0-35.0); MCHC 30.2 g/dL (31.0-37.0); MCV 99.7 fL (80.0-100.0); Mean Platelet Volume 8.8; Monocytes # (A) 0.5 k/uL (0-1.0); Monocytes % (A) 12 %; Neutrophils # (A) 2.5 k/uL (1.3-7.7); Neutrophils % (A) 60 %; RBC 3.65 m/uL (3.80-5.40); RDW 13.4 % (11.5-15.5); WBC 4.3 k/uL (3.8-10.6); WBC (Perox) 4.14
[2016-09-03 06:14] LABS: INR 2.6 (<1.1); Prothrombin Time 25.1 sec (9.0-12.0)
[2016-09-03 06:22] LABS: Anion Gap 7 mmol/L; Blood Urea Nitrogen 22 mg/dL (7-17); Calcium 8.4 mg/dL (8.4-10.2); Carbon Dioxide 34 mmol/L (22-30); Chloride 100 mmol/L (98-107); Glucose 87 mg/dL (74-99); Magnesium 1.9 mg/dL (1.6-2.3); Non-African American GFR(MDRD) >60 (>60 ml/min/1.73 sqM); Potassium 3.9 mmol/L (3.5-5.1); Sodium 141 mmol/L (137-145)
[2016-09-03] MEDS: AMIODARONE 200 MG TAB PO SCH ×3 (09:23→20:54)
[2016-09-03] MEDS: cloNIDine HCL 0.1 MG TAB PO SCH ×2 (09:24→20:54)
[2016-09-03] MEDS: FUROSEMIDE 40 MG TAB PO SCH ×2 (09:24→17:33)
[2016-09-03] MEDS: NITROGLYCERIN OINT 1 INCH/GM PACKET TOPICAL SCH (09:24)
[2016-09-03] MEDS: amLODIPine 10 MG TAB PO SCH (09:24)
[2016-09-03] MEDS: ATENOLOL 25 MG TAB PO SCH (09:24)
[2016-09-03] MEDS: ASPIRIN 81 MG CHEW PO SCH (09:24)
[2016-09-03] MEDS: DULoxetine HCL 60 MG CAPSULE.DR PO SCH ×2 (09:24→20:54)
[2016-09-03] MEDS: OXYBUTYNIN 15 MG TAB.ER.24 PO SCH (09:25)
[2016-09-03] MEDS: SILVER sulfADIAZINE Cream 400 GM 1 APPLIC APPLIC TOPICAL SCH ×2 (09:25→20:54)
[2016-09-03] MEDS: POTASSIUM CHLORIDE ER 10 MEQ TAB.ER.PRT PO SCH (09:25)
--- NOTE | 2016-09-03 12:19 | P.PN ---
Subjective Principal diagnosis: CHF and atrial fibrillation This is a 71-year-old female with history of paroxysmal atrial fibrillation, CVA /TIA, hypertension and hyperlipidemia has been experiencing increasing shortness of breath and rapid respiratory rate for the last several weeks but more so over the last 3 days. Apparently she was seen by Dr. Buchanan in the office and referred her to the emergency room. Patient had chest x-rays and computed tomography scan in the emergency room. The findings were consistent with congestive heart failure. Patient was started on IV Lasix and seems to be diuresing well, seemed to be less short of breath today. Currently on by mouth Lasix. Patient also had A. fib with a rapid ventricular response. Continues to be in atrial fibrillation, heart rate under adequate control. Anticoagulated with Coumadin. Creatinine 0.6. Echocardiogram with Doppler study was performed which revealed an ejection fraction of 30-35%. We'll discontinue the patient's atenolol and start a low-dose of Coreg. Discontinue Nitropaste. Discontinue Norvasc. Start the patient on BLAIR inhibitor and Aldactone. Objective - Vital Signs Vital signs: Vital Signs Temp 97.0 F L 09/03/16 08:00 Pulse 117 H 09/03/16 08:00 Resp 18 09/03/16 04:00 BP 123/82 09/03/16 08:00 Pulse Ox 94 L 09/03/16 08:00 Intake & Output 09/02/16 09/03/16 09/03/16 18:59 06:59 18:59 Intake Total 354 216 Output Total 1050 Balance -696 216 Weight 129.8 kg Intake: Oral 354 216 Output: Urine 1050 Other: Voiding Method Toilet Toilet # Voids 1 1 - Exam PHYSICAL EXAMINATION: HEENT: Head is atraumatic, normocephalic. Pupils equal, round. Neck is supple. There is no elevated jugular venous pressure. HEART EXAMINATION: S1 and S2 systolic murmur is heard. CHEST EXAMINATION: Lungs reveal diminished air entry to bilateral bases. ABDOMEN: Soft, nontender. Bowel sounds are heard. No organomegaly noted. EXTREMITIES: 1+ peripheral pulses with bilateral wraps in place. NEUROLOGIC patient is awake, alert and oriented -3. . - Labs CBC & Chem 7: 09/03/16 05:47 09/03/16 05:47 Labs: Abnormal Lab Results - Last 24 Hours (Table) 09/03/16 09/03/16 09/03/16 Range/Units 05:47 05:47 05:47 RBC 3.65 L (3.80-5.40) m/uL Hgb 11.0 L (11.4-16.0) gm/dL MCHC 30.2 L (31.0-37.0) g/dL Lymphocytes # 0.9 L (1.0-4.8) k/uL PT 25.1 H (9.0-12.0) sec Carbon Dioxide 34 H (22-30) mmol/L BUN 22 H (7-17) mg/dL Assessment and Plan (1) Systolic CHF, acute on chronic Status: Acute (2) Atrial fibrillation with RVR Status: Acute (3) Hypertension Status: Acute (4) Venous stasis ulcer of right lower extremity Status: Acute (5) Chronic a-fib Status: Acute Plan: From cardiology's perspective, we will discontinue the Norvasc, discontinue atenolol, start the patient on Coreg, lisinopril, amiodarone and Aldactone. Continue by mouth Lasix. We'll continue to follow. DNP note has been reviewed, I agree with a documented findings and plan of care. Patient was seen and examined.
[2016-09-03] MEDS: SPIRONOLACTONE 25 MG TAB PO SCH (12:33)
[2016-09-03] MEDS: CARVEDILOL 3.125 MG TAB PO SCH ×2 (12:33→17:32)
[2016-09-03] MEDS: WARFARIN 7.5 MG TAB PO SCH (17:32)
[2016-09-03] MEDS: ATORVASTATIN 10 MG TAB PO SCH (20:54)
[2016-09-04] MEDS: CARVEDILOL 3.125 MG TAB PO SCH ×2 (06:33→17:31)
[2016-09-04 07:06] LABS: Basophils % (A) 1 %; CH 30.7; CHCM 31.3; Eosinophils # (A) 0.3 k/uL (0-0.7); Eosinophils % (A) 6 %; HCT 35.2 % (34.0-46.0); HDW 2.52; HGB 11.1 gm/dL (11.4-16.0); Hypochromasia Slight; Luc # (Auto) 0.14; Luc % (Auto) 4; Lymphocytes # (A) 0.7 k/uL (1.0-4.8); Lymphocytes % (A) 17 %; MCHC 31.4 g/dL (31.0-37.0); MCV 98.6 fL (80.0-100.0); Mean Platelet Volume 7.7; Monocytes # (A) 0.4 k/uL (0-1.0); Monocytes % (A) 10 %; Neutrophils # (A) 2.5 k/uL (1.3-7.7); Neutrophils % (A) 63 %; RBC 3.57 m/uL (3.80-5.40); RDW 13.6 % (11.5-15.5); WBC 3.9 k/uL (3.8-10.6); WBC (Perox) 3.96
[2016-09-04 07:15] LABS: INR 2.7 (<1.1); Prothrombin Time 26.3 sec (9.0-12.0)
[2016-09-04 07:16] LABS: Anion Gap 9 mmol/L; Blood Urea Nitrogen 21 mg/dL (7-17); Calcium 8.5 mg/dL (8.4-10.2); Carbon Dioxide 33 mmol/L (22-30); Chloride 100 mmol/L (98-107); Glucose 84 mg/dL (74-99); Non-African American GFR(MDRD) >60 (>60 ml/min/1.73 sqM); Potassium 3.7 mmol/L (3.5-5.1); Sodium 142 mmol/L (137-145)
[2016-09-04] MEDS: SPIRONOLACTONE 25 MG TAB PO SCH (08:34)
[2016-09-04] MEDS: ASPIRIN 81 MG CHEW PO SCH (08:35)
[2016-09-04] MEDS: LISINOPRIL 10 MG TAB PO SCH (08:35)
[2016-09-04] MEDS: FUROSEMIDE 40 MG TAB PO SCH ×2 (08:35→17:31)
[2016-09-04] MEDS: OXYBUTYNIN 15 MG TAB.ER.24 PO SCH (08:35)
[2016-09-04] MEDS: AMIODARONE 200 MG TAB PO SCH ×3 (08:35→22:50)
[2016-09-04] MEDS: cloNIDine HCL 0.1 MG TAB PO SCH ×2 (08:35→20:40)
[2016-09-04] MEDS: DULoxetine HCL 60 MG CAPSULE.DR PO SCH ×2 (08:35→20:40)
--- NOTE | 2016-09-04 10:42 | PN ---
DATE OF SERVICE: 09/03/2016 This 71-year-old woman was admitted with CHF acute exacerbation, ejection fraction 30 to 35%. The patient is feeling slightly better, but still on IV Lasix. No chest pain, no palpitations. No fever. Cardiology is following the patient closely. On exam, alert and oriented x3. Pulse 90, blood pressure 120/75, respirations 18, temperature 96.8, pulse ox 90% on room air. HEENT: Conjunctivae normal. NECK: No jugular venous distention. CARDIOVASCULAR: S1 and S2, muffled. RESPIRATORY: Breath sounds diminished at the bases. Scattered rhonchi and crackles. ABDOMEN: Soft, nontender, obese. LEGS: No edema, no swelling. NERVOUS SYSTEM: No focal deficits. LABS:WBC 4.3, hemoglobin 11. ASSESSMENT: 1. Shortness of breath, possible congestive heart failure acute exacerbation, ejection fraction 30 to 35% with acute on chronic systolic dysfunction. 2. LA dilated for more than 40. 3. Severe tricuspid regurgitations. 4. Severe mitral regurgitation. 5. Atrial fibrillation with fast ventricular rate, present on admission. 6. History of cerebrovascular accident, transient ischemic attack. 7. Hypertension. 8. Hyperlipidemia. 9. No evidence of pulmonary embolism. 10. History of degenerative joint disease. 11. History of transient ischemic attack. 12. History of appendectomy. 13. History of cholecystectomy. 14. History of degenerative joint disease. 15. History of bilateral cataracts. 16. FULL CODE. RECOMMENDATIONS AND DISCUSSION: I recommend to continue the current medications, continue monitoring and symptomatic treatment. Continue with IV Lasix. Follow closely with Cardiology. Monitor fluid and electrolyte balance closely. DVT prophylaxis. Guarded prognosis. Further recommendations to follow.
--- NOTE | 2016-09-04 14:00 | P.PN ---
Subjective Principal diagnosis: CHF/cardiomyopathy This is a pleasant 72-year-old female patient with a past medical history significant for cardiomyopathy, chronic atrial fibrillation, obesity, as well as multiple comorbid conditions who was sent by Dr. Buchanan directed to the hospital because of congestive heart failure as well as A. fib with RVR. The patient was started initially on Lasix IV and she diuresed very well. Subsequently she was converted to Lasix by mouth. On follow-up with her today, she is feeling much better indeterminable shortness of breath. She denies having any chest pain or chest discomfort. On physical examination, she continues to be in A. fib with controlled heart rates. Objective - Vital Signs Vital signs: Vital Signs Temp 96.8 F L 09/04/16 08:00 Pulse 109 H 09/04/16 08:00 Resp 18 09/04/16 04:00 BP 135/74 09/04/16 08:00 Pulse Ox 94 L 09/04/16 08:00 Intake & Output 09/03/16 09/04/16 09/04/16 18:59 06:59 18:59 Intake Total 436 600 180 Output Total 350 Balance 86 600 180 Weight 128.6 kg Intake: Oral 436 600 180 Output: Urine 350 Other: Voiding Method Toilet # Voids 1 1 3 # Bowel Movements 0 - Constitutional General appearance: Present: no acute distress - Respiratory Respiratory: bilateral: CTA - Cardiovascular Rhythm: irregularly irregular - Labs CBC & Chem 7: 09/04/16 06:32 09/04/16 06:32 Labs: Abnormal Lab Results - Last 24 Hours (Table) 09/04/16 09/04/16 09/04/16 Range/Units 06:32 06:32 06:32 RBC 3.57 L (3.80-5.40) m/uL Hgb 11.1 L (11.4-16.0) gm/dL Lymphocytes # 0.7 L (1.0-4.8) k/uL PT 26.3 H (9.0-12.0) sec Carbon Dioxide 33 H (22-30) mmol/L BUN 21 H (7-17) mg/dL Assessment and Plan Plan: Assessment #1 congestive heart failure exacerbation secondary to systolic dysfunction #2 atrial fibrillation was controlled heart rate #3 multiple comorbid conditions Plan #1 continue the patient on the current medical treatment #2 continue following up with her
[2016-09-04] MEDS: WARFARIN 7.5 MG TAB PO SCH (17:31)
[2016-09-04] MEDS: IPRATROPIUM 0.5 MG/2.5 ML NEBU INHALATION SCH (20:05)
[2016-09-04] MEDS: LEVALBUTEROL NEB (CONC) 1.25 MG/0.5 ML AMP INHALATION SCH (20:05)
[2016-09-04] MEDS: ATORVASTATIN 10 MG TAB PO SCH (20:40)
[2016-09-04] MEDS: SILVER sulfADIAZINE Cream 400 GM 1 APPLIC APPLIC TOPICAL SCH (22:51)
[2016-09-05 06:12] LABS: Anion Gap 7 mmol/L; Blood Urea Nitrogen 19 mg/dL (7-17); Calcium 8.6 mg/dL (8.4-10.2); Carbon Dioxide 36 mmol/L (22-30); Chloride 99 mmol/L (98-107); Glucose 83 mg/dL (74-99); Non-African American GFR(MDRD) >60 (>60 ml/min/1.73 sqM); Potassium 3.8 mmol/L (3.5-5.1); Sodium 142 mmol/L (137-145)
[2016-09-05 06:15] LABS: INR 3.5 (<1.1); Prothrombin Time 34.3 sec (9.0-12.0)
[2016-09-05 06:35] LABS: Basophils % (A) 0 %; CH 30.6; CHCM 31.4; Eosinophils # (A) 0.3 k/uL (0-0.7); Eosinophils % (A) 7 %; HCT 35.1 % (34.0-46.0); HDW 2.49; Hypochromasia Slight; Luc # (Auto) 0.13; Luc % (Auto) 3; Lymphocytes # (A) 0.7 k/uL (1.0-4.8); Lymphocytes % (A) 18 %; MCH 30.9 pg (25.0-35.0); MCHC 31.4 g/dL (31.0-37.0); MCV 98.2 fL (80.0-100.0); Mean Platelet Volume 7.9; Monocytes # (A) 0.4 k/uL (0-1.0); Monocytes % (A) 10 %; Neutrophils # (A) 2.5 k/uL (1.3-7.7); Neutrophils % (A) 62 %; RBC 3.58 m/uL (3.80-5.40); RDW 13.4 % (11.5-15.5); WBC 4.1 k/uL (3.8-10.6); WBC (Perox) 3.94
[2016-09-05] MEDS: CARVEDILOL 3.125 MG TAB PO SCH (06:54)
[2016-09-05 08:26] VITALS: BP 110/63; PULSE 70; RESP 16; TEMP 96.9
[2016-09-05] MEDS: ASPIRIN 81 MG CHEW PO SCH (08:27)
[2016-09-05] MEDS: cloNIDine HCL 0.1 MG TAB PO SCH (08:27)
[2016-09-05] MEDS: AMIODARONE 200 MG TAB PO SCH (08:27)
[2016-09-05] MEDS: OXYBUTYNIN 15 MG TAB.ER.24 PO SCH (08:28)
[2016-09-05] MEDS: LISINOPRIL 10 MG TAB PO SCH (08:28)
[2016-09-05] MEDS: DULoxetine HCL 60 MG CAPSULE.DR PO SCH (08:28)
[2016-09-05] MEDS: FUROSEMIDE 40 MG TAB PO SCH (08:28)
[2016-09-05] MEDS: SPIRONOLACTONE 25 MG TAB PO SCH (08:28)
[2016-09-05] MEDS: LEVALBUTEROL NEB (CONC) 1.25 MG/0.5 ML AMP INHALATION SCH (08:33)
[2016-09-05] MEDS: IPRATROPIUM 0.5 MG/2.5 ML NEBU INHALATION SCH (08:33)
[2016-09-05 12:54] VITALS: BMI 45.4
--- NOTE | 2016-09-05 13:26 | P.PN ---
Subjective Principal diagnosis: CHF and atrial fibrillation This is a 71-year-old female with history of paroxysmal atrial fibrillation, CVA /TIA, hypertension and hyperlipidemia has been experiencing increasing shortness of breath and rapid respiratory rate for the last several weeks but more so over the last 3 days. Apparently she was seen by Dr. Buchanan in the office and referred her to the emergency room. Patient had chest x-rays and computed tomography scan in the emergency room. The findings were consistent with congestive heart failure. Currently on by mouth Lasix. Patient also had A. fib with a rapid ventricular response. Continues to be in atrial fibrillation, heart rate under adequate control. Anticoagulated with Coumadin. Creatinine 0.7. Echocardiogram with Doppler study was performed which revealed an ejection fraction of 30-35%. From cardiology's perspective, patient may be discharged home today, we'll make a follow-up appointment to see Dr. Buchanan in the office post discharge. Objective - Vital Signs Vital signs: Vital Signs Temp 96.9 F L 09/05/16 08:00 Pulse 70 09/05/16 08:00 Resp 16 09/05/16 08:00 BP 110/63 09/05/16 08:00 Pulse Ox 92 L 09/05/16 08:00 Intake & Output 09/04/16 09/05/16 09/05/16 18:59 06:59 18:59 Intake Total 660 218 Output Total 750 Balance 660 -750 218 Weight 127.8 kg 127.8 kg Intake: Oral 660 218 Output: Urine 750 Other: Voiding Method Toilet # Voids 3 1 1 # Bowel Movements 0 - Exam PHYSICAL EXAMINATION: HEENT: Head is atraumatic, normocephalic. Pupils equal, round. Neck is supple. There is no elevated jugular venous pressure. HEART EXAMINATION: S1 and S2 systolic murmur is heard. CHEST EXAMINATION: Lungs reveal diminished air entry to bilateral bases. ABDOMEN: Soft, nontender. Bowel sounds are heard. No organomegaly noted. EXTREMITIES: 1+ peripheral pulses with bilateral wraps in place. NEUROLOGIC patient is awake, alert and oriented -3. . - Labs CBC & Chem 7: 09/05/16 05:46 09/05/16 05:46 Labs: Abnormal Lab Results - Last 24 Hours (Table) 09/05/16 09/05/16 09/05/16 Range/Units 05:46 05:46 05:46 RBC 3.58 L (3.80-5.40) m/uL Hgb 11.0 L (11.4-16.0) gm/dL Lymphocytes # 0.7 L (1.0-4.8) k/uL PT 34.3 H (9.0-12.0) sec Carbon Dioxide 36 H (22-30) mmol/L BUN 19 H (7-17) mg/dL Assessment and Plan (1) Systolic CHF, acute on chronic Status: Acute (2) Atrial fibrillation with RVR Status: Acute (3) Hypertension Status: Acute (4) Venous stasis ulcer of right lower extremity Status: Acute (5) Chronic a-fib Status: Acute Plan: From cardiology's perspective, patient may be able to be discharged once cleared by the primary. We will taper down her amiodarone dose. Continue other medications. Check lytes BUN creatinine PT/INR on Monday. Follow-up appointment with Dr. Buchanan. DNP note has been reviewed, I agree with a documented findings and plan of care. Patient was seen and examined.
--- NOTE | 2016-09-05 16:45 | PN ---
DATE OF SERVICE: 09/04/2016 This 71-year-old woman who was admitted with CHF, acute exacerbation, is being closely monitored. The patient is also receiving Lasix. Cardiology is following the patient closely. No chest. No palpitation. No fever. On exam, alert and oriented x3. Pulse 170, blood pressure 114/64, respiration 20, temperature normal, pulse ox 92% on room air. HEENT: Conjunctivae normal. NECK: No jugular venous distention. CARDIOVASCULAR SYSTEM: S1, S2 muffled. RESPIRATORY SYSTEM: Breath sounds diminished at the bases. Scattered rhonchi and crackles. ABDOMEN: Soft, nontender. No mass palpable. LEGS: No edema. No swelling. NERVOUS SYSTEM: Higher functions as mentioned earlier. Moves all 4 limbs. No focal motor or sensory deficit. LYMPHATICS: No lymph node palpable in neck, axillae or groin. SKIN: No ulcer, rash, bleeding. Labs at this time show WBC 3.9, hemoglobin 11.1. INR is 2.7. ASSESSMENT: 1. Shortness of breath with possible congestive heart failure, acute exacerbation, with acute on chronic systolic dysfunction, ejection fraction 30% to 35%. 2. Left atrium dilated to more than 40. 3. Severe tricuspid regurgitation. 4. Severe mitral regurgitation. 5. Atrial fibrillation with fast ventricular rate, present on admission. 6. History of cerebrovascular incident, transient ischemic attack. 7. Hypertension. 8. Hyperlipidemia. 9. Obesity with body mass index of 45.8. 10. No evidence of pulmonary embolism. 11. History of degenerative joint disease. 12. History of transient ischemic attack. 13. History of appendectomy. 14. History of cholecystectomy. 15. History of bilateral cataracts. 16. FULL CODE. RECOMMENDATIONS AND DISCUSSION: In this 71-year-old woman who presented with multiple complex medical issues, we will monitor the patient closely, continue the current medications, continue with symptomatic treatment. I would also recommend continuing with the diuretics. Continue the rest of the medications. Follow closely with Cardiology. Overall prognosis extremely guarded because of multiple complex medical issues. Further recommendations to follow.
--- NOTE | 2016-09-06 08:11 | DS ---
DATE OF ADMISSION: 08/31/2016 DATE OF DISCHARGE: 09/05/2016 FINAL DIAGNOSES: 1. Shortness of breath, possible congestive heart failure acute exacerbation with ejection fraction 30 to 35% with chronic systolic dysfunction. 2. LA dilated more than 40. 3. Severe tricuspid regurgitation. 4. Severe mitral regurgitation. 5. Atrial fibrillation with fast ventricular rate present on admission. 6. History of cerebrovascular accident, transient ischemic attack. 7. Hypertension. 8. Hyperlipidemia. 9. No evidence of pulmonary embolism. 10. History of degenerative joint disease. 11. History of transient ischemic attack. 12. History of appendectomy. 13. History of cholecystectomy. 14. History of degenerative joint disease. 15. History of bilateral cataracts. 16. FULL CODE. DISCHARGE DISPOSITION: Patient will be discharged in a stable condition with guarded prognosis. Total time taken 35 minutes. HISTORY OF PRESENT ILLNESS: This 71-year-old woman with past medical history of multiple medical problems was admitted with congestive heart failure, acute exacerbation. Ejection fraction found to be 30 to 35%. The patient was treated with IV diuretics. The patient improved significantly. Cardiology saw the patient. On exam, vitals are stable. CARDIOVASCULAR: S1, S2. No S3, no S4. RESPIRATORY: Breath sounds diminished at bases. A few scattered rhonchi. ABDOMEN: Soft. Nervous system: No focal deficits. Home care is also being arranged. Patient is discharged with the followin. Diet is cardiac. 2. Activity limited until follow-up. 3. Follow up with Dr. Bhatia in 2 to 3 days. MEDICATIONS: 1. Tylenol Extra Strength p.r.n. 2. Xanax 0.25 t.i.d. p.r.n. 3. Ventolin HFA 2 puffs p.r.n. 4. Cordarone 200 mg p.o. t.i.d. 5. Aspirin 81 mg p.o. daily. 6. Coreg 3.125 mg p.o. b.i.d. 7. Duloxetine 60 mg p.o. b.i.d. 8. Lasix 40 mg p.o. b.i.d. 9. Hydrocodone 5 mg q.6. 10. Zestril 10 mg p.o. 11. Mevacor 40 mg q.h.s. 12. Oxybutynin 15 mg p.o. daily. 13. Klor-Con 8 mEq p.o. daily. 15. Aldactone 25 mg p.o. daily. 16. Coumadin 5 mg p.o. daily. 17. CBC, BMP, PT/INR in the outpatient setting. 18. Catapres 0.1 mg p.o. b.i.d. Once again, the patient will be discharged in stable condition with guarded prognosis. MTDD
== END 2016-09-05 15:00 | disposition home or self-care (01) | DRG 291 ==
LOC: EC 09:44 → 6SEL 13:03
PROVIDERS: ADMIT Internal Medicine; ATTEND Internal Medicine
DX: I11.0 Hypertensive heart disease with heart failure (principal); J96.01 Acute respiratory failure with hypoxia; L97.919 Non-pressure chronic ulcer of unspecified part of right lower leg with unspecified severity; I42.9 Cardiomyopathy, unspecified; I48.0 Paroxysmal atrial fibrillation; I50.23 Acute on chronic systolic (congestive) heart failure; T50.1X6A Underdosing of loop [high-ceiling] diuretics, initial encounter; I48.2 Chronic atrial fibrillation; E78.5 Hyperlipidemia, unspecified; I08.1 Rheumatic disorders of both mitral and tricuspid valves; R32 Unspecified urinary incontinence; I83.019 Varicose veins of right lower extremity with ulcer of unspecified site; M19.90 Unspecified osteoarthritis, unspecified site; Z83.3 Family history of diabetes mellitus; Z90.49 Acquired absence of other specified parts of digestive tract; Z79.82 Long term (current) use of aspirin; Z79.01 Long term (current) use of anticoagulants; Z82.49 Family history of ischemic heart disease and other diseases of the circulatory system; Z86.73 Personal history of transient ischemic attack (TIA), and cerebral infarction without residual deficits; Z79.899 Other long term (current) drug therapy; Z86.19 Personal history of other infectious and parasitic diseases; Z90.710 Acquired absence of both cervix and uterus; Z98.42 Cataract extraction status, left eye; Z98.41 Cataract extraction status, right eye; Z91.128 Patient's intentional underdosing of medication regimen for other reason
CPT/HCPCS: 36415; 71010; 71020; 71275; 80048; 80053; 82550; 82553; 83735; 83880; 84484; 85025; 85379; 85610; 85730; 93005; 93306; 94640; 94760; 96374; 96375; 99291

== ENCOUNTER → 2016-10-06 | Day surgery (SDC) | payer MEDICARE ==
[2016-10-03 16:20] VITALS: BMI 41.6
[~2016-10-06] MED LIST: HYDROmorphone 1 MG/ML 1 ML SYRINGE IVP PRN; LACTATED RINGERS 1,000 ML IV SCH; LIDOCAINE 1% INJ 10MG/ML (20 ML MDV) ONE; MIDAZOLAM 2 MG/2 ML VIAL IV PRN; MIDAZOLAM 2 MG/2 ML VIAL ONE; ONDANSETRON 4 MG/2 ML VIAL IVP ONE; PHENYLEPHRINE-0.9% NACL SYG 1 MG/10 ML SYRINGE ONE; PROPOFOL 10 MG/ML 20 ML VIAL IV ONE; SODIUM CHLORIDE 0.9% 1,000 ML IV ONE; SODIUM CHLORIDE 0.9% 1,000 ML IV SCH; SODIUM CHLORIDE 0.9% 500 ML IV ONE; ePHEDrine 50 MG/ML 1 ML AMP ONE
[2016-10-06 09:20] LABS: INR 1.9 (<1.1); Prothrombin Time 18.5 sec (9.0-12.0)
--- NOTE | 2016-10-06 09:37 | ECHOT ---
DATE OF SERVICE: INDICATION: Chronic atrial fibrillation. PROCEDURE NOTE: After obtaining informed consent, transesophageal echocardiogram was performed in the left lateral position using an Omniplane probe. Local and IV sedation were obtained by the veneer gluer and the procedure started 7:04 and ended at 7:11. FINDINGS: 1. Left atrial appendage, there is no evidence of thrombus. There is no intracardiac thrombus within the left atrium, right atrium, right ventricular or left ventricle. 2. Left atrium appears enlarged. 3. Left ventricle has normal size and systolic function. 4. Right atrium appears enlarged. 5. Right ventricle is within normal limits. 6. Mitral valve is anatomically normal. There is mild to moderate central mitral regurgitation noted. 7. Aortic valve is a 3-leaflet valve. There is trace aortic regurgitation noted. 8. There is mild tricuspid regurgitation noted. 9. INTERATRIAL SEPTUM: There is no evidence of udgb-wj-cwomo shunt by color flow Doppler or stzdr-wf-[id number] shunt by agitated saline contrast study. 10. Aorta shows mild atherosclerotic changes. CONCLUSIONS: 1. No intracardiac thrombus. 2. Mild to moderate mitral regurgitation. 3. Left atrium appears enlarged. 4. Left ventricular systolic function appears preserved. PLAN: Patient will undergo cardioversion.
--- NOTE | 2016-10-06 09:40 | CE ---
DATE OF SERVICE: CARDIOVERSION PROCEDURE INDICATION: Chronic atrial fibrillation. Patient was anesthetized by the logging specialist, adequately anticoagulated with an INR of 3.5. She was hocked with 300 joules of synchronized DC current. Converted to sinus rhythm following a single shock. Will obtain an EKG to confirm this. PLAN: Patient will be discharged home and I am going to ( ) the Cardizem that she is on and continue the rest of her medications. I might decrease the dose of Coumadin in the outpatient setting.
[2016-10-06 10:01] VITALS: TEMP 97
[2016-10-06 10:04] VITALS: RESP 16
[2016-10-06 10:06] VITALS: BP 114/60; PULSE 61
== END ==
LOC: CATHCVL 07:49
PROVIDERS: ATTEND Internal Medicine Cardiovascular Disease
DX: I48.2 Chronic atrial fibrillation (principal); I42.0 Dilated cardiomyopathy; I08.3 Combined rheumatic disorders of mitral, aortic and tricuspid valves; E78.5 Hyperlipidemia, unspecified; I11.0 Hypertensive heart disease with heart failure; I50.9 Heart failure, unspecified; F32.9 Major depressive disorder, single episode, unspecified; Z79.01 Long term (current) use of anticoagulants; Z79.82 Long term (current) use of aspirin; Z79.899 Other long term (current) drug therapy
CPT/HCPCS: 93312; 93320; 93005; 93325; 92960; 85610; J2250; J2001; J2370; J2704; 99152; 99153

== ENCOUNTER → 2017-10-26 | Outpatient (CLI) | payer MEDICARE ==
[2017-10-26 11:31] LABS: ALT 43 U/L (9-52); AST 67 U/L (14-36); Anion Gap 7 mmol/L; Blood Urea Nitrogen 28 mg/dL (7-17); Carbon Dioxide 30 mmol/L (22-30); Chloride 104 mmol/L (98-107); Cholesterol 145 mg/dL (<200); HDL Cholesterol 38 mg/dL (40-60); LDL Cholesterol,Calculated 92 mg/dL (0-99); Potassium 4.4 mmol/L (3.5-5.1); Sodium 141 mmol/L (137-145); Triglycerides 77 mg/dL (<150)
== END | disposition home or self-care (01) ==
LOC: LABWHC1 10:55
PROVIDERS: ATTEND Internal Medicine Cardiovascular Disease
DX: I50.22 Chronic systolic (congestive) heart failure (principal); E78.2 Mixed hyperlipidemia
CPT/HCPCS: 36415; 80051; 80061; 82565; 84443; 84450; 84460; 84520

== ENCOUNTER 2017-12-30 13:26 | Emergency (ER) | payer MEDICARE ==
[2017-12-30 13:53] VITALS: RESP 18
--- NOTE | 2017-12-30 14:25 | ED ---
General Adult HPI - General Source: patient, family, RN notes reviewed Mode of arrival: wheelchair Limitations: no limitations <Reji Perea - Last Filed: 12/30/17 17:05> <Rickie Painting - Last Filed: 12/30/17 17:26> - General Chief complaint: Recheck/Abnormal Lab/Rx Stated complaint: high b/p - History of Present Illness Initial comments: Patient is a 72-year-old female presenting to the emergency room today with a chief complaint of elevated blood pressure. She states that she got a new blood pressure cuff 2 weeks ago as been checking her blood pressure. She states she's noticed that it's been elevated. She states that she's been trying follow-up the family doctor they increased the medicine approximately 20 mg recently. Patient states she did take this medication today but did not take her Lasix. Patient admits to headaches come and go. She states has mild headache at this time that she rates 2/10. She denies any other complaints or symptoms. Patient denies any recent fever, chills, shortness of breath, chest pain, back pain, abdominal pain, nausea or vomiting, numbness or tingling, dysuria or hematuria, constipation or diarrhea, visual changes, or any other complaints. (Reji Perea) - Related Data Home Medications Medication Instructions Recorded Confirmed DULoxetine HCL 60 mg PO BID 10/20/14 12/30/17 Aspirin 81 mg PO DAILY 06/08/15 12/30/17 Lovastatin [Mevacor] 40 mg PO DAILY 08/31/16 12/30/17 Potassium Chloride [Klor-Con 8] 16 meq PO BID 08/31/16 12/30/17 Amiodarone [Cordarone] 100 mg PO DAILY 10/03/16 12/30/17 Carvedilol [Coreg] 3.125 mg PO BID 10/03/16 12/30/17 Furosemide [Lasix] 40 mg PO DAILY 10/03/16 12/30/17 Oxybutynin Chloride [Ditropan XL] 10 mg PO DAILY 10/03/16 12/30/17 Spironolactone [Aldactone] 25 mg PO DAILY 10/03/16 12/30/17 Warfarin [Coumadin] 5 mg PO DIRECTED 10/03/16 12/30/17 Warfarin [Coumadin] 7.5 mg PO DIRECTED 10/03/16 12/30/17 Lisinopril [Zestril] 20 mg PO DAILY 12/30/17 12/30/17 cloNIDine HCL [Catapres] 0.1 mg PO DIRECTED 12/30/17 12/30/17 Allergies Allergy/AdvReac Type Severity Reaction Status Date / Time No Known Allergies Allergy Verified 12/30/17 13:53 Review of Systems ROS Other: All systems not noted in ROS Statement are negative. <Reji Perea - Last Filed: 12/30/17 17:05> ROS Other: All systems not noted in ROS Statement are negative. <Rickie Painting - Last Filed: 12/30/17 17:26> ROS Statement: Those systems with pertinent positive or pertinent negative responses have been documented in the HPI. Past Medical History Past Medical History: Atrial Fibrillation, Heart Failure, CVA/TIA, Hyperlipidemia, Hypertension, Liver Disease, Osteoarthritis (OA) Additional Past Medical History / Comment(s): TIA, heart murmer, poor circulation in legs, swelling in lower legs, hepatitis age 14, urinary leakage/ incontinence History of Any Multi-Drug Resistant Organisms: None Reported Past Surgical History: Appendectomy, Cholecystectomy, Hysterectomy, Orthopedic Surgery Additional Past Surgical History / Comment(s): Bilateral cataracts, arthroscopy both knees, D&C Past Anesthesia/Blood Transfusion Reactions: Motion Sickness Past Psychological History: No Psychological Hx Reported Smoking Status: Never smoker Past Alcohol Use History: None Reported Past Drug Use History: None Reported - Past Family History Sister(s) Family Medical History: Cancer Brother(s) Family Medical History: Cancer Mother Family Medical History: Dementia, Diabetes Mellitus Additional Family Medical History / Comment(s): age 89 Father Additional Family Medical History / Comment(s): age 70's from heart attack <Reji Perea - Last Filed: 12/30/17 17:05> General Exam Limitations: no limitations <Reji Perea - Last Filed: 12/30/17 17:05> <Rickie Painting - Last Filed: 12/30/17 17:26> - General Exam Comments Initial Comments: General: The patient is awake and alert, in no distress, and does not appear acutely ill. Eye: Pupils are equal, round and reactive to light, extra-ocular movements are intact. No nystagmus. There is normal conjunctiva bilaterally. No signs of icterus. Ears, nose, mouth and throat: There are moist mucous membranes and no oral lesions. Neck: The neck is supple, there is no tenderness or JVD. Cardiovascular: There is a regular rate and rhythm. No murmur, rub or gallop is appreciated. Respiratory: Lungs are clear to auscultation, respirations are non-labored, breath sounds are equal. No wheezes, stridor, rales, or rhonchi. Musculoskeletal: Normal ROM, no tenderness. Strength 5/5. Sensation intact. Pulses equal bilaterally 2+. Neurological: A&O x 3. CN II-XII intact, There are no obvious motor or sensory deficits. Coordination appears grossly intact. Speech is normal. Skin: Skin is warm and dry and no rashes or lesions are noted. Psychiatric: Cooperative, appropriate mood & affect, normal judgment. (Reji Perea) Vital Signs 12/30/17 12/30/17 12/30/17 13:51 15:03 15:31 Temperature 97.5 F L Pulse Rate 52 L Respiratory 18 Rate Blood Pressure 199/85 189/81 169/74 O2 Sat by Pulse 98 Oximetry 12/30/17 16:41 Temperature Pulse Rate Respiratory Rate Blood Pressure 168/70 O2 Sat by Pulse Oximetry Medical Decision Making - Lab Data Result diagrams: 12/30/17 14:36 12/30/17 14:36 <Reji Perea - Last Filed: 12/30/17 17:05> - Lab Data Result diagrams: 12/30/17 14:36 12/30/17 14:36 <Rickie Painting - Last Filed: 12/30/17 17:26> - Medical Decision Making Patient reexamined at this time shows no signs of distress. Patient admits to a slight headache in emergency room shows been coming on over the last few weeks. Patient states her headache at this time. Blood pressure much improved. Hydralazine 10 mg was given here in the emergency room. Patient is currently on Coreg, lisinopril, and Lasix at home. She has been checking her blood pressure. Patient's CT of the head is negative. Patient's labs been reviewed. INR was 4.1. Patient advised to Coumadin and have level rechecked in 2 days. Patient advised that her blood pressure greater than 180/100 at home that she may take an extra 10 mg tab of her lisinopril. Patient advised follow-up the family doctor Monday morning. Advised return if symptoms increase or worsen. (Reji Perea) Medical decision making; approximately a half hour after receiving IV hydralazine the patient had an unusual reaction and the venous distribution on the dorsal surface of the left arm. She was given IV Benadryl with good resolution. The patient did not have any difficulty with breathing or hives. Patient had no other IV medications administered. Dr. Painting (Rickie Painting) - Lab Data Lab Results 12/30/17 12/30/17 12/30/17 Range/Units 14:36 14:36 14:36 WBC 2.9 L (3.8-10.6) k/uL RBC 4.31 (3.80-5.40) m/uL Hgb 13.7 (11.4-16.0) gm/dL Hct 41.4 (34.0-46.0) % MCV 96.1 (80.0-100.0) fL MCH 31.9 (25.0-35.0) pg MCHC 33.2 (31.0-37.0) g/dL RDW 14.8 (11.5-15.5) % Plt Count 119 L (150-450) k/uL Neutrophils % 50 % Lymphocytes % 33 % Monocytes % 11 % Eosinophils % 0 % Basophils % 1 % Neutrophils # 1.5 (1.3-7.7) k/uL Lymphocytes # 1.0 (1.0-4.8) k/uL Monocytes # 0.3 (0-1.0) k/uL Eosinophils # 0.0 (0-0.7) k/uL Basophils # 0.0 (0-0.2) k/uL PT 36.6 H (9.0-12.0) sec INR 4.1 H (<1.2) Sodium 145 (137-145) mmol/L Potassium 4.5 (3.5-5.1) mmol/L Chloride 108 H (98-107) mmol/L Carbon Dioxide 25 (22-30) mmol/L Anion Gap 12 mmol/L BUN 21 H (7-17) mg/dL Creatinine 0.64 (0.52-1.04) mg/dL Est GFR (CKD-EPI)AfAm >90 (>60 ml/min/1.73 sqM) Est GFR (CKD-EPI)NonAf 89 (>60 ml/min/1.73 sqM) Glucose 78 (74-99) mg/dL Calcium 9.1 (8.4-10.2) mg/dL Total Bilirubin 1.4 H (0.2-1.3) mg/dL AST 70 H (14-36) U/L ALT 37 (9-52) U/L Alkaline Phosphatase 124 (38-126) U/L Total Protein 7.8 (6.3-8.2) g/dL Albumin 3.5 (3.5-5.0) g/dL Disposition Is patient prescribed a controlled substance at d/c from ED?: No Time of Disposition: 17:07 <Reji Perea - Last Filed: 12/30/17 17:05> <Rickie Painting - Last Filed: 12/30/17 17:26> Clinical Impression: Hypertension, Elevated INR Disposition: HOME SELF-CARE Condition: Good Instructions: Hypertension (ED) Additional Instructions: Please hold Coumadin for the next 2 days and have INR rechecked by the family doctor Monday. Please check blood pressure same time daily. Please take extra dose of clonidine if blood pressures greater than 180/100. Please return to emergency room for any other concerns. Referrals: Kendal Bhatia MD [Primary Care Provider] - 1-2 days
[2017-12-30 14:45] LABS: Basophils % (A) 1 %; Eosinophils % (A) 0 %; HCT 41.4 % (34.0-46.0); HGB 13.7 gm/dL (11.4-16.0); Lymphocytes % (A) 33 %; MCH 31.9 pg (25.0-35.0); MCHC 33.2 g/dL (31.0-37.0); MCV 96.1 fL (80.0-100.0); Mean Platelet Volume 7.4; Monocytes # (A) 0.3 k/uL (0-1.0); Monocytes % (A) 11 %; Neutrophils # (A) 1.5 k/uL (1.3-7.7); Neutrophils % (A) 50 %; Platelet Count 119 k/uL (150-450); RBC 4.31 m/uL (3.80-5.40); RDW 14.8 % (11.5-15.5); WBC 2.9 k/uL (3.8-10.6)
[2017-12-30] MEDS ORDERED: hydrALAZINE HCL 20 MG/ML 1 ML VIAL IVP STA (14:56)
[2017-12-30 14:58] LABS: ALT 37 U/L (9-52); AST 70 U/L (14-36); Albumin 3.5 g/dL (3.5-5.0); Alkaline Phosphatase 124 U/L (38-126); Anion Gap 12 mmol/L; Blood Urea Nitrogen 21 mg/dL (7-17); Calcium 9.1 mg/dL (8.4-10.2); Carbon Dioxide 25 mmol/L (22-30); Chloride 108 mmol/L (98-107); Glucose 78 mg/dL (74-99); Potassium 4.5 mmol/L (3.5-5.1); Sodium 145 mmol/L (137-145); Total Bilirubin 1.4 mg/dL (0.2-1.3); Total Protein 7.8 g/dL (6.3-8.2)
[2017-12-30 15:15] LABS: INR 4.1 (<1.2)
[2017-12-30 15:16] LABS: Prothrombin Time 36.6 sec (9.0-12.0)
--- NOTE | 2017-12-30 16:29 | CT ---
EXAMINATION TYPE: CT brain wo con DATE OF EXAM: 12/30/2017 COMPARISON: NONE HISTORY: Hypertension with TEMPLE[place] CT DLP: 942.[address] of the brain was performed. The ventricles, basal cisterns and sulci overlying the cerebral convexities demonstrate mild enlargem ent. There is no evidence for intracranial hemorrhage or sulcal effacement. There is decreased attenuation about the periventricular white matter and deep white matter of both c erebral hemispheres, compatible with chronic small vessel ischemia. Differential diagnosis does inclu de demyelination. No mass effects are seen.No midline shift. Osseous calvarium is intact. If symptoms persist consider MRI. IMPRESSION: 1. Age related atrophic and chronic small vessel ischemic change without acute intracranial process s een at this time.
[2017-12-30] MEDS ORDERED: diphenhydrAMINE 50 MG/ML 1 ML VIAL IVP STA (16:38)
[2017-12-30] MEDS ORDERED: cloNIDine HCL 0.1 MG TAB PO STA (17:11)
--- NOTE | 2017-12-30 17:14 | ED ---
Medical Decision Making - Medical Decision Making Patient's blood pressure elevated prior to discharge. She is symptomatic at this time feeling well. Patient's does take clonidine at home 0.1 mg. Patient will be given dose of clonidine here in the emergency room. She'll be discharged home. She is advised to use this if his blood pressure is elevated rhythm regular. - Lab Data Result diagrams: 12/30/17 14:36 12/30/17 14:36 Lab Results 12/30/17 12/30/17 12/30/17 Range/Units 14:36 14:36 14:36 WBC 2.9 L (3.8-10.6) k/uL RBC 4.31 (3.80-5.40) m/uL Hgb 13.7 (11.4-16.0) gm/dL Hct 41.4 (34.0-46.0) % MCV 96.1 (80.0-100.0) fL MCH 31.9 (25.0-35.0) pg MCHC 33.2 (31.0-37.0) g/dL RDW 14.8 (11.5-15.5) % Plt Count 119 L (150-450) k/uL Neutrophils % 50 % Lymphocytes % 33 % Monocytes % 11 % Eosinophils % 0 % Basophils % 1 % Neutrophils # 1.5 (1.3-7.7) k/uL Lymphocytes # 1.0 (1.0-4.8) k/uL Monocytes # 0.3 (0-1.0) k/uL Eosinophils # 0.0 (0-0.7) k/uL Basophils # 0.0 (0-0.2) k/uL PT 36.6 H (9.0-12.0) sec INR 4.1 H (<1.2) Sodium 145 (137-145) mmol/L Potassium 4.5 (3.5-5.1) mmol/L Chloride 108 H (98-107) mmol/L Carbon Dioxide 25 (22-30) mmol/L Anion Gap 12 mmol/L BUN 21 H (7-17) mg/dL Creatinine 0.64 (0.52-1.04) mg/dL Est GFR (CKD-EPI)AfAm >90 (>60 ml/min/1.73 sqM) Est GFR (CKD-EPI)NonAf 89 (>60 ml/min/1.73 sqM) Glucose 78 (74-99) mg/dL Calcium 9.1 (8.4-10.2) mg/dL Total Bilirubin 1.4 H (0.2-1.3) mg/dL AST 70 H (14-36) U/L ALT 37 (9-52) U/L Alkaline Phosphatase 124 (38-126) U/L Total Protein 7.8 (6.3-8.2) g/dL Albumin 3.5 (3.5-5.0) g/dL Disposition Clinical Impression: Hypertension, Elevated INR Disposition: HOME SELF-CARE Condition: Good Instructions: Hypertension (ED) Additional Instructions: Please hold Coumadin for the next 2 days and have INR rechecked by the family doctor Monday. Please check blood pressure same time daily. Please take extra dose of clonidine if blood pressures greater than 180/100. Please return to emergency room for any other concerns. Is patient prescribed a controlled substance at d/c from ED?: No Referrals: Kendal Bhatia MD [Primary Care Provider] - 1-2 days Time of Disposition: 17:13
[2017-12-30 17:58] VITALS: BP 170/74; PULSE 60; TEMP 97
== END 2017-12-30 17:57 | disposition home or self-care (01) ==
LOC: EC 13:26
DX: I11.0 Hypertensive heart disease with heart failure (principal); R79.1 Abnormal coagulation profile; I50.9 Heart failure, unspecified; I48.91 Unspecified atrial fibrillation; E78.5 Hyperlipidemia, unspecified; Z86.73 Personal history of transient ischemic attack (TIA), and cerebral infarction without residual deficits; Z79.82 Long term (current) use of aspirin; Z79.899 Other long term (current) drug therapy; Z79.02 Long term (current) use of antithrombotics/antiplatelets; Z79.01 Long term (current) use of anticoagulants
CPT/HCPCS: 36415; 80053; 85025; 85610; 70450; 99284; 96374; 96375; J0360; J1200

== ENCOUNTER 2018-01-09 02:37 | Emergency (ER) | payer MEDICARE ==
[2018-01-09 02:43] VITALS: BP 178/69; PULSE 56; RESP 20; TEMP 98.4
--- NOTE | 2018-01-09 03:00 | ED ---
General Adult HPI - General Chief complaint: Fall Stated complaint: Fall, Knee pain Time Seen by Provider: 01/09/18 02:39 Source: patient, EMS, RN notes reviewed Mode of arrival: EMS Limitations: no limitations - History of Present Illness Initial comments: This is a 72-year-old female presents emergency department via EMS for a fall. Patient states earlier her legs felt wobbly and felt like to give out and she fell down into some boxes. Patient states that she is very unsteady on her feet normally states that she has to ambulate with a walker or cane. Patient states that she had no injury from her small fall today. Patient denies head injury, neck pain, loss consciousness, chest pain, shortness breath, nausea, vomiting or any focal weakness. Patient has no specific complaints at this time she states that EMS came because she fell and could not get up and he felt that she should be seen. - Related Data Home Medications Medication Instructions Recorded Confirmed DULoxetine HCL 60 mg PO BID 10/20/14 01/09/18 Aspirin 81 mg PO DAILY 06/08/15 01/09/18 Lovastatin [Mevacor] 40 mg PO DAILY 08/31/16 01/09/18 Potassium Chloride [Klor-Con 8] 16 meq PO BID 08/31/16 01/09/18 Amiodarone [Cordarone] 100 mg PO DAILY 10/03/16 01/09/18 Carvedilol [Coreg] 3.125 mg PO BID 10/03/16 01/09/18 Furosemide [Lasix] 40 mg PO DAILY 10/03/16 01/09/18 Oxybutynin Chloride [Ditropan XL] 10 mg PO DAILY 10/03/16 01/09/18 Spironolactone [Aldactone] 25 mg PO DAILY 10/03/16 01/09/18 Warfarin [Coumadin] 5 mg PO DIRECTED 10/03/16 01/09/18 Warfarin [Coumadin] 7.5 mg PO DIRECTED 10/03/16 01/09/18 Lisinopril [Zestril] 20 mg PO DAILY 12/30/17 01/09/18 cloNIDine HCL [Catapres] 0.1 mg PO DIRECTED 12/30/17 01/09/18 Allergies Allergy/AdvReac Type Severity Reaction Status Date / Time No Known Allergies Allergy Verified 12/30/17 13:53 Review of Systems ROS Statement: Those systems with pertinent positive or pertinent negative responses have been documented in the HPI. ROS Other: All systems not noted in ROS Statement are negative. Past Medical History Past Medical History: Atrial Fibrillation, Heart Failure, CVA/TIA, Hyperlipidemia, Hypertension, Liver Disease, Osteoarthritis (OA) Additional Past Medical History / Comment(s): TIA, heart murmer, poor circulation in legs, swelling in lower legs, hepatitis age 14, urinary leakage/ incontinence History of Any Multi-Drug Resistant Organisms: None Reported Past Surgical History: Appendectomy, Cholecystectomy, Hysterectomy, Orthopedic Surgery Additional Past Surgical History / Comment(s): Bilateral cataracts, arthroscopy both knees, D&C Past Anesthesia/Blood Transfusion Reactions: Motion Sickness Past Psychological History: No Psychological Hx Reported Smoking Status: Never smoker Past Alcohol Use History: None Reported Past Drug Use History: None Reported - Past Family History Sister(s) Family Medical History: Cancer Brother(s) Family Medical History: Cancer Mother Family Medical History: Dementia, Diabetes Mellitus Additional Family Medical History / Comment(s): age 89 Father Additional Family Medical History / Comment(s): age 70's from heart attack General Exam Limitations: no limitations General appearance: alert, in no apparent distress Head exam: Present: atraumatic, normocephalic, normal inspection Eye exam: Present: normal appearance, PERRL, EOMI. Absent: scleral icterus, conjunctival injection, periorbital swelling ENT exam: Present: normal oropharynx, mucous membranes moist Neck exam: Present: normal inspection, full ROM. Absent: tenderness, meningismus, lymphadenopathy Respiratory exam: Present: normal lung sounds bilaterally. Absent: respiratory distress, wheezes, rales, rhonchi, stridor Cardiovascular Exam: Present: regular rate, normal rhythm, normal heart sounds. Absent: systolic murmur, diastolic murmur, rubs, gallop, clicks Extremities exam: Present: other (Bilateral lower extremities peripheral vascular changes, pedal pulses are equal bilaterally she has full range of motion there is no localized tenderness of the knee, ankle or hips. Strength is equal bilaterally 5/5) Back exam: Present: full ROM. Absent: tenderness, paraspinal tenderness, vertebral tenderness Neurological exam: Present: alert, oriented X3, CN II-XII intact, reflexes normal. Absent: motor sensory deficit Skin exam: Present: warm, dry, intact, normal color. Absent: rash Course Vital Signs 01/09/18 02:39 Temperature 98.4 F Pulse Rate 56 L Respiratory 20 Rate Blood Pressure 178/69 O2 Sat by Pulse 96 Oximetry - Reevaluation(s) Reevaluation #1: 01/09/18 03:00 Patient was able to stand with a walker, was able to take a couple steps. She states that she did better and she does normally at home. Medical Decision Making - Medical Decision Making 72-year-old female presented because she had a fall. She had no acute injuries from the fall. She felt unsteady on her legs in fell softly into some boxes. Patient was able to ambulate here with walk without difficulty states that she feels better. Patient had no complaints of anything else at this time. Patient will be discharged she is advised to see her PCP and discuss physical therapy if needed. Disposition Clinical Impression: Fall, Knee osteoarthritis Disposition: HOME SELF-CARE Condition: Stable Instructions: Fall Prevention for Older Adults (ED) Additional Instructions: Please return to the Emergency Department if symptoms worsen or any other concerns. Is patient prescribed a controlled substance at d/c from ED?: No Referrals: Kendal Bhatia MD [Primary Care Provider] - 1-2 days Time of Disposition: 03:20
== END 2018-01-09 03:36 | disposition home or self-care (01) ==
LOC: EC 02:37
DX: M17.0 Bilateral primary osteoarthritis of knee (principal); I48.91 Unspecified atrial fibrillation; I11.0 Hypertensive heart disease with heart failure; I50.9 Heart failure, unspecified; E78.5 Hyperlipidemia, unspecified; Z86.73 Personal history of transient ischemic attack (TIA), and cerebral infarction without residual deficits; W19.XXXA Unspecified fall, initial encounter; Z79.82 Long term (current) use of aspirin; Z79.02 Long term (current) use of antithrombotics/antiplatelets; Z79.01 Long term (current) use of anticoagulants; Z79.899 Other long term (current) drug therapy
CPT/HCPCS: 99283

== ENCOUNTER 2018-04-17 10:29 | Observation (INO) | payer MEDICARE ==
[2018-04-17] MEDS ORDERED: SODIUM CHLORIDE 0.9% 500 ML IV STA (11:06)
--- NOTE | 2018-04-17 11:23 | ED ---
General Adult HPI - General Chief complaint: Fall Stated complaint: Weakness/fall Time Seen by Provider: 04/17/18 10:30 Source: patient, EMS, RN notes reviewed Mode of arrival: EMS Limitations: no limitations - History of Present Illness Initial comments: This is a 73-year-old female presents emergency Department because of bilateral lower extremity weakness. Patient is unable to ambulate without falling this morning. Patient's phone twice and he can call EMS twice to get up. Patient states lying in bed she has no problems and no complaints other than a little bit of left knee pain from the fall. Patient denies hitting her head patient denies headache patient denies any numbness weakness. Patient denies any neck pain. Patient denies any chest pain difficulty breathing or shortness of breath. Patient denies any palpitation. Patient denies abdominal pain patient denies nausea vomiting diarrhea. Patient denies any hip pain. Patient states she didn't note herself being weak but she did fall twice so she's assuming her legs are too weak to hold herself up and she might need some rehabilitation though she does not want to go to a facility to be rehabilitated she would like to stay home and be rehabilitated. - Related Data Home Medications Medication Instructions Recorded Confirmed DULoxetine HCL 60 mg PO BID 10/20/14 04/17/18 Aspirin 81 mg PO DAILY 06/08/15 04/17/18 Lovastatin [Mevacor] 40 mg PO DAILY 08/31/16 04/17/18 Potassium Chloride [Klor-Con 8] 8 meq PO DAILY 08/31/16 04/17/18 Carvedilol [Coreg] 3.125 mg PO BID 10/03/16 04/17/18 Furosemide [Lasix] 40 mg PO DAILY 10/03/16 04/17/18 Oxybutynin Chloride [Ditropan XL] 10 mg PO DAILY 10/03/16 04/17/18 Spironolactone [Aldactone] 25 mg PO DAILY 10/03/16 04/17/18 Warfarin [Coumadin] 5 mg PO DIRECTED 10/03/16 04/17/18 Warfarin [Coumadin] 7.5 mg PO DIRECTED 10/03/16 04/17/18 Lisinopril [Zestril] 20 mg PO DAILY 12/30/17 04/17/18 cloNIDine HCL [Catapres] 0.1 mg PO BID 12/30/17 04/17/18 Amiodarone [Cordarone] 100 mg PO DAILY 04/17/18 04/17/18 Allergies Allergy/AdvReac Type Severity Reaction Status Date / Time No Known Allergies Allergy Verified 12/30/17 13:53 Review of Systems ROS Statement: Those systems with pertinent positive or pertinent negative responses have been documented in the HPI. ROS Other: All systems not noted in ROS Statement are negative. Past Medical History Past Medical History: Atrial Fibrillation, Heart Failure, CVA/TIA, Hyperlipidemia, Hypertension, Liver Disease, Osteoarthritis (OA) Additional Past Medical History / Comment(s): TIA, heart murmer, poor circulation in legs, swelling in lower legs, hepatitis age 14, urinary leakage/ incontinence History of Any Multi-Drug Resistant Organisms: None Reported Past Surgical History: Appendectomy, Cholecystectomy, Hysterectomy, Orthopedic Surgery Additional Past Surgical History / Comment(s): Bilateral cataracts, arthroscopy both knees, D&C Past Anesthesia/Blood Transfusion Reactions: Motion Sickness Past Psychological History: No Psychological Hx Reported Smoking Status: Never smoker Past Alcohol Use History: None Reported Past Drug Use History: None Reported - Past Family History Sister(s) Family Medical History: Cancer Brother(s) Family Medical History: Cancer Mother Family Medical History: Dementia, Diabetes Mellitus Additional Family Medical History / Comment(s): age 89 Father Additional Family Medical History / Comment(s): age 70's from heart attack General Exam - General Exam Comments Initial Comments: GENERAL: Patient is well-developed and well-nourished. Patient is nontoxic and well- hydrated and is in mild distress. ENT: Neck is soft and supple. No significant lymphadenopathy is noted. Oropharynx is clear. Moist mucous membranes. Neck has full range of motion without eliciting any pain. EYES: The sclera were anicteric and conjunctiva were pink and moist. Extraocular movements were intact and pupils were equal round and reactive to light. Eyelids were unremarkable. PULMONARY: Unlabored respirations. Good breath sounds bilaterally. No audible rales rhonchi or wheezing was noted. CARDIOVASCULAR: There is a regular rate and rhythm without any murmurs gallops or rubs. ABDOMEN: Soft and nontender with normal bowel sounds. No palpable organomegaly was noted. There is no palpable pulsatile mass. SKIN: Skin is clear with no lesions or rashes and otherwise unremarkable. NEUROLOGIC: Patient is alert and oriented x3. Cranial nerves II through XII are grossly intact. Motor and sensory are also intact. Normal speech, volume and content. Symmetrical smile. MUSCULOSKELETAL: Knee has full range of motion however there is some tenderness of the inferior lateral aspect of the knee. PSYCHIATRIC Normal psychiatric exam Limitations: no limitations Course Vital Signs 04/17/18 10:33 Temperature 98.2 F Pulse Rate 57 L Respiratory 18 Rate Blood Pressure 194/90 O2 Sat by Pulse 95 Oximetry Medical Decision Making - Medical Decision Making EKG shows atrial fibrillation at a rate of 55 bpm QRS is 98 QT interval is 502 QTC is 480. Patient's EKG shows no ST segment elevation or depression or T wave abnormalities are noted X-ray of the knee showed no acute abnormality. I spoke with Dr. Cardona he agreed to admit the patient I wrote admitting orders - Lab Data Result diagrams: 04/17/18 10:52 04/17/18 10:52 Lab Results 04/17/18 04/17/18 04/17/18 Range/Units 10:52 10:52 10:52 WBC 3.4 L (3.8-10.6) k/uL RBC 4.11 (3.80-5.40) m/uL Hgb 13.4 (11.4-16.0) gm/dL Hct 40.9 (34.0-46.0) % MCV 99.5 (80.0-100.0) fL MCH 32.6 (25.0-35.0) pg MCHC 32.7 (31.0-37.0) g/dL RDW 14.4 (11.5-15.5) % Plt Count 111 L (150-450) k/uL Neutrophils % 66 % Lymphocytes % 20 % Monocytes % 10 % Eosinophils % 0 % Basophils % 0 % Neutrophils # 2.3 (1.3-7.7) k/uL Lymphocytes # 0.7 L (1.0-4.8) k/uL Monocytes # 0.4 (0-1.0) k/uL Eosinophils # 0.0 (0-0.7) k/uL Basophils # 0.0 (0-0.2) k/uL Sodium 140 (137-145) mmol/L Potassium 4.5 (3.5-5.1) mmol/L Chloride 107 (98-107) mmol/L Carbon Dioxide 26 (22-30) mmol/L Anion Gap 7 mmol/L BUN 26 H (7-17) mg/dL Creatinine 0.80 (0.52-1.04) mg/dL Est GFR (CKD-EPI)AfAm 84 (>60 ml/min/1.73 sqM) Est GFR (CKD-EPI)NonAf 73 (>60 ml/min/1.73 sqM) Glucose 79 (74-99) mg/dL Plasma Lactic Acid Karson (0.7-2.0) mmol/L Calcium 9.3 (8.4-10.2) mg/dL Magnesium 1.6 (1.6-2.3) mg/dL Total Bilirubin 2.0 H (0.2-1.3) mg/dL AST 68 H (14-36) U/L ALT 45 (9-52) U/L Alkaline Phosphatase 111 (38-126) U/L Total Creatine Kinase 110 (30-135) U/L Total Protein 7.9 (6.3-8.2) g/dL Albumin 3.3 L (3.5-5.0) g/dL 04/17/18 Range/Units 10:52 WBC (3.8-10.6) k/uL RBC (3.80-5.40) m/uL Hgb (11.4-16.0) gm/dL Hct (34.0-46.0) % MCV (80.0-100.0) fL MCH (25.0-35.0) pg MCHC (31.0-37.0) g/dL RDW (11.5-15.5) % Plt Count (150-450) k/uL Neutrophils % % Lymphocytes % % Monocytes % % Eosinophils % % Basophils % % Neutrophils # (1.3-7.7) k/uL Lymphocytes # (1.0-4.8) k/uL Monocytes # (0-1.0) k/uL Eosinophils # (0-0.7) k/uL Basophils # (0-0.2) k/uL Sodium (137-145) mmol/L Potassium (3.5-5.1) mmol/L Chloride (98-107) mmol/L Carbon Dioxide (22-30) mmol/L Anion Gap mmol/L BUN (7-17) mg/dL Creatinine (0.52-1.04) mg/dL Est GFR (CKD-EPI)AfAm (>60 ml/min/1.73 sqM) Est GFR (CKD-EPI)NonAf (>60 ml/min/1.73 sqM) Glucose (74-99) mg/dL Plasma Lactic Acid Karson 2.2 H* (0.7-2.0) mmol/L Calcium (8.4-10.2) mg/dL Magnesium (1.6-2.3) mg/dL Total Bilirubin (0.2-1.3) mg/dL AST (14-36) U/L ALT (9-52) U/L Alkaline Phosphatase (38-126) U/L Total Creatine Kinase (30-135) U/L Total Protein (6.3-8.2) g/dL Albumin (3.5-5.0) g/dL Disposition Clinical Impression: Generalized weakness, Multiple falls Disposition: ADMITTED IP TO THIS HOSP Referrals: Kendal Bhatia MD [Primary Care Provider] - 1-2 days Time of Disposition: 12:06
[2018-04-17 11:33] LABS: Basophils % (A) 0 %; Eosinophils % (A) 0 %; HCT 40.9 % (34.0-46.0); HGB 13.4 gm/dL (11.4-16.0); Lymphocytes # (A) 0.7 k/uL (1.0-4.8); Lymphocytes % (A) 20 %; MCH 32.6 pg (25.0-35.0); MCHC 32.7 g/dL (31.0-37.0); MCV 99.5 fL (80.0-100.0); Mean Platelet Volume 7.9; Monocytes # (A) 0.4 k/uL (0-1.0); Monocytes % (A) 10 %; Neutrophils # (A) 2.3 k/uL (1.3-7.7); Neutrophils % (A) 66 %; Platelet Count 111 k/uL (150-450); RBC 4.11 m/uL (3.80-5.40); RDW 14.4 % (11.5-15.5); WBC 3.4 k/uL (3.8-10.6)
[2018-04-17 11:40] LABS: Albumin 3.3 g/dL (3.5-5.0); Calcium 9.3 mg/dL (8.4-10.2); Magnesium 1.6 mg/dL (1.6-2.3); Potassium 4.5 mmol/L (3.5-5.1); Total Protein 7.9 g/dL (6.3-8.2)
--- NOTE | 2018-04-17 11:42 | XR ---
EXAMINATION TYPE: XR knee complete LT DATE OF EXAM: 04/17/2018 CLINICAL HISTORY: Pain after recurrent falls. TECHNIQUE: Three views of the left knee are obtained. COMPARISON: Prior bilateral knee x-ray April 24, 2015. FINDINGS: There is moderate to severe diffuse subcutaneous edema redemonstrated. Severe vascular calc ification is again seen. There is no acute fracture/dislocation evident in left knee. There is fairly advanced tricompartment degenerative change with joint space loss and spurring most prominent medial tibiofemoral compartment with progression or more prominent joint space loss from 2015 study noted. Increased density suprapatellar bursa is consistent with moderate to large joint effusion. IMPRESSION: There is no acute fracture or dislocation in the left knee. Advanced degenerative change s with progression from 2015 noted.
[2018-04-17 11:52] LABS: Creatine Kinase 110 U/L (30-135)
[2018-04-17 12:05] LABS: Creatine Kinase MB 2.4 ng/mL (0.0-2.4); INR 3.4 (<1.2); Partial Thromboplastin Time 33.7 sec (22.0-30.0); Prothrombin Time 30.6 sec (9.0-12.0); Troponin I <0.012 ng/mL (0.000-0.034)
[2018-04-17] MEDS ORDERED: SODIUM CHLORIDE 0.9% 1,000 ML IV ONE (12:06)
[2018-04-17 13:58] LABS: Appearance,Urine Cloudy (Clear); Bacteria,Urine Moderate /hpf; Bilirubin,Urine Negative (Negative); Blood,Urine Negative (Negative); Color,Urine Yellow; Glucose,Urine (UA) Negative (Negative); Hyaline Casts,Urine 4 /lpf (0-2); Ketones,Urine Negative (Negative); Leukocyte Esterase,Urine Moderate (Negative); Mucus,Urine Rare /hpf; Nitrite,Urine Positive (Negative); PH, Urine 5.5 (5.0-8.0); Protein,Urine Negative (Negative); RBC,Urine 1 /hpf (0-5); Specific Gravity,Urine 1.013 (1.001-1.035); Squamous Epithelial Cell,Urine 1 /hpf (0-4); Urobilinogen,Urine <2.0 mg/dL (<2.0); WBC,Urine 37 /hpf (0-5)
--- NOTE | 2018-04-17 15:59 | XR ---
EXAMINATION TYPE: XR chest 2V DATE OF EXAM: 04/17/2018 COMPARISON: CTA chest August 31, 2016. Two-view chest x-ray September 02, 2016. HISTORY: Weakness rule out CHF TECHNIQUE: Frontal and lateral views of the chest are obtained. FINDINGS: There is cardiomegaly with atherosclerotic thoracic aorta redemonstrated. There is no susp icious focal airspace opacity, pleural effusion, or pneumothorax seen on current study. The osseous structures are intact. IMPRESSION: Cardiomegaly without acute pulmonary process. No radiographic evidence for failure curre ntly.
--- NOTE | 2018-04-17 16:26 | P.HPIM ---
History of Present Illness Patient is a pleasant 73-year-old the female came in with generalized weakness and fall at home. Patient is obese does have history of congestive heart failure previous ejection fraction early 2017 was around 35% limited from improved had normal ejection fraction does have severe mitral regurgitation denied any shortness of breath orthopnea PND patient does have bilateral lower limb edema more in the left leg. Nonpitting edema up is to have chronic venous stasis. Doesn't have any pulmonary hypertension. I cannot really assess JVD because of her neck contour. Chest x-ray will be obtain BNP will be obtained. Patient was started on IV fluids and holding of Lasix because of elevated lactic acid. Repeat echocardiogram will be obtained. Etiology of generalized weakness is not clear patient denied any dysuria denied any fever chills and a cough. No signs or symptoms of sepsis although urine is bit abnormal because of which I started on empiric antibiotics even though my suspicion is low for urinary tract infection. Physical therapy and occupational therapy consultation will be obtained, she does have history of atrial fibrillation on Coumadin for valvular A. fib with INR of around 3.5 will hold off Coumadin today repeat INR tomorrow probably can be restarted back on her Coumadin tomorrow Review of Systems REVIEW OF SYSTEMS: CONSTITUTIONAL: As mentioned in HPI HEENT: No recent visual problems or hearing problems. Denied any sore throat. CARDIOVASCULAR: No chest pain, orthopnea, PND, no palpitations, no syncope. PULMONARY: No shortness of breath, no cough, no hemoptysis. GASTROINTESTINAL: No diarrhea, no nausea, no vomiting, no abdominal pain. Normoactive bowel sounds. NEUROLOGICAL: No headaches, no weakness, no numbness. HEMATOLOGICAL: Denies any bleeding or petechiae. GENITOURINARY: Denies any burning micturition, frequency, or urgency. MUSCULOSKELETAL/RHEUMATOLOGICAL: Denies any joint pain, swelling, or any muscle pain. ENDOCRINE: Denies any polyuria or polydipsia. The rest of the 14-point review of systems is negative. Past Medical History Past Medical History: Atrial Fibrillation, Heart Failure, CVA/TIA, Hyperlipidemia, Hypertension, Liver Disease, Osteoarthritis (OA) Additional Past Medical History / Comment(s): TIA, heart murmer, poor circulation in legs, swelling in lower legs, hepatitis age 14, urinary leakage/ incontinence History of Any Multi-Drug Resistant Organisms: None Reported Past Surgical History: Appendectomy, Cholecystectomy, Hysterectomy, Orthopedic Surgery Additional Past Surgical History / Comment(s): Bilateral cataracts, arthroscopy both knees, D&C Past Anesthesia/Blood Transfusion Reactions: Motion Sickness Past Psychological History: No Psychological Hx Reported Smoking Status: Never smoker Past Alcohol Use History: None Reported Past Drug Use History: None Reported - Past Family History Sister(s) Family Medical History: Cancer Brother(s) Family Medical History: Cancer Mother Family Medical History: Dementia, Diabetes Mellitus Additional Family Medical History / Comment(s): age 89 Father Additional Family Medical History / Comment(s): age 70's from heart attack Medications and Allergies Home Medications Medication Instructions Recorded Confirmed Type DULoxetine HCL 60 mg PO BID 10/20/14 04/17/18 History Aspirin 81 mg PO DAILY 06/08/15 04/17/18 History Lovastatin [Mevacor] 40 mg PO DAILY 08/31/16 04/17/18 History Potassium Chloride [Klor-Con 8] 8 meq PO DAILY 08/31/16 04/17/18 History Carvedilol [Coreg] 3.125 mg PO BID 10/03/16 04/17/18 History Furosemide [Lasix] 40 mg PO DAILY 10/03/16 04/17/18 History Oxybutynin Chloride [Ditropan XL] 10 mg PO DAILY 10/03/16 04/17/18 History Spironolactone [Aldactone] 25 mg PO DAILY 10/03/16 04/17/18 History Warfarin [Coumadin] 5 mg PO DIRECTED 10/03/16 04/17/18 History Warfarin [Coumadin] 7.5 mg PO DIRECTED 10/03/16 04/17/18 History Lisinopril [Zestril] 20 mg PO DAILY 12/30/17 04/17/18 History cloNIDine HCL [Catapres] 0.1 mg PO BID 12/30/17 04/17/18 History Amiodarone [Cordarone] 100 mg PO DAILY 04/17/18 04/17/18 History Allergies Allergy/AdvReac Type Severity Reaction Status Date / Time No Known Allergies Allergy Verified 12/30/17 13:53 Physical Exam Vitals: Vital Signs Temp Pulse Resp BP Pulse Ox 04/17/18 13:48 57 L 18 189/80 97 04/17/18 10:33 98.2 F 57 L 18 194/90 95 Intake and Output 04/17/18 04/17/18 04/17/18 06:59 14:59 22:59 Other: Weight 159.211 kg PHYSICAL EXAMINATION: GENERAL: The patient is alert and oriented x3, not in any acute distress. Morbidly obese HEENT: Pupils are round and equally reacting to light. EOMI. No scleral icterus. No conjunctival pallor. Normocephalic, atraumatic. No pharyngeal erythema. No thyromegaly. CARDIOVASCULAR: S1 and S2 present. No murmurs, rubs, or gallops. PULMONARY: Chest is clear to auscultation, no wheezing or crackles. ABDOMEN: Soft, nontender, nondistended, normoactive bowel sounds. No palpable organomegaly. MUSCULOSKELETAL: No joint swelling or deformity. EXTREMITIES: No cyanosis, clubbing, patient does have bilateral pedal edema more on the left side with chronic venous stasis dermatosis redness minimal local is of temperature which is chronic NEUROLOGICAL: Gross neurological examination did not reveal any focal deficits. SKIN: No rashes. Results CBC & Chem 7: 04/17/18 10:52 04/17/18 10:52 Labs: Abnormal Lab Results - Last 24 Hours (Table) 04/17/18 04/17/18 04/17/18 Range/Units 10:52 10:52 10:52 WBC 3.4 L (3.8-10.6) k/uL Plt Count 111 L (150-450) k/uL Lymphocytes # 0.7 L (1.0-4.8) k/uL PT (9.0-12.0) sec INR (<1.2) APTT (22.0-30.0) sec BUN 26 H (7-17) mg/dL Plasma Lactic Acid Karson 2.2 H* (0.7-2.0) mmol/L Total Bilirubin 2.0 H (0.2-1.3) mg/dL AST 68 H (14-36) U/L Albumin 3.3 L (3.5-5.0) g/dL Urine Appearance (Clear) Urine Nitrite (Negative) Ur Leukocyte Esterase (Negative) Urine WBC (0-5) /hpf Urine Bacteria (None) /hpf Hyaline Casts (0-2) /lpf Urine Mucus (None) /hpf 04/17/18 04/17/18 Range/Units 10:52 13:38 WBC (3.8-10.6) k/uL Plt Count (150-450) k/uL Lymphocytes # (1.0-4.8) k/uL PT 30.6 H (9.0-12.0) sec INR 3.4 H (<1.2) APTT 33.7 H (22.0-30.0) sec BUN (7-17) mg/dL Plasma Lactic Acid Karson (0.7-2.0) mmol/L Total Bilirubin (0.2-1.3) mg/dL AST (14-36) U/L Albumin (3.5-5.0) g/dL Urine Appearance Cloudy H (Clear) Urine Nitrite Positive H (Negative) Ur Leukocyte Esterase Moderate H (Negative) Urine WBC 37 H (0-5) /hpf Urine Bacteria Moderate H (None) /hpf Hyaline Casts 4 H (0-2) /lpf Urine Mucus Rare H (None) /hpf Assessment and Plan Plan: -Generalized weakness and fall: Etiology is unclear but I cannot completely rule out urinary tract infection patient was started on Rocephin. Patient may be dehydrated patient does have lactic acidosis probably from intravascular depletion Lasix will be held patient will be given IV fluids. -Congestive heart failure history of systolic dysfunction which improved probably has diastolic dysfunction not in acute exacerbation. Hold off on Lasix as mentioned above. We'll get a BNP and a chest x-ray. Repeat echocardiogram will be obtained -Lactic is doses due to intravascular depletion. -Atrial fibrillation amiodarone and Coreg will be continued, patient will be resumed on an anti-coagulation INR is therapeutic at 3.4. Presently rate controlled. -Hypertension -Morbid obesity -Mitral regurgitation moderate to severe.
[2018-04-17] MEDS: ASPIRIN 81 MG PO SCH (16:42)
[2018-04-17] MEDS: AMIODARONE 100 MG TAB PO SCH (16:42)
[2018-04-17] MEDS: cefTRIAXone IN SWFI 1,000 MG/10 ML SYRINGE IVP SCH (16:42)
[2018-04-17] MEDS: CARVEDILOL 3.125 MG TAB PO SCH (16:42)
[2018-04-17] MEDS: WARFARIN 5 MG TAB PO SCH (18:01)
[2018-04-17] MEDS: DULoxetine HCL 60 MG CAPSULE.DR PO SCH (20:56)
[2018-04-17] MEDS: cloNIDine HCL 0.1 MG TAB PO SCH (20:56)
--- NOTE | 2018-04-17 23:15 | US ---
EXAMINATION TYPE: US venous doppler duplex LE BI DATE OF EXAM: 04/17/2018 8:32 PM COMPARISON: NONE CLINICAL HISTORY: r/o dvt. Bilateral pain and swelling. Exam limitations due to body habitus. SIDE PERFORMED: Bilateral TECHNIQUE: The lower extremity deep venous system is examined utilizing real time linear array sonog bradley with graded compression, doppler sonography and color-flow sonography. VESSELS IMAGED: External Iliac Vein (EIV) Common Femoral Vein Deep Femoral Vein Greater Saphenous Vein * Femoral Vein Popliteal Vein Small Saphenous Vein * FINDINGS: Grayscale, color doppler, spectral doppler imaging performed of the deep veins of the lower extremities. There is normal flow, compressibility, vascular waveforms. IMPRESSION: NEGATIVE FOR DVT BILATERAL LOWER EXTREMITIES.
[2018-04-18 08:30] LABS: INR 3.7 (<1.2); Prothrombin Time 33.2 sec (9.0-12.0)
[2018-04-18] MEDS: WARFARIN 5 MG TAB PO SCH (08:35)
[2018-04-18] MEDS: AMIODARONE 100 MG TAB PO SCH (08:36)
[2018-04-18] MEDS: LISINOPRIL 20 MG TAB PO SCH (08:36)
[2018-04-18] MEDS: ATORVASTATIN 10 MG TAB PO SCH (08:36)
[2018-04-18] MEDS: ASPIRIN 81 MG PO SCH (08:36)
[2018-04-18] MEDS: cloNIDine HCL 0.1 MG TAB PO SCH ×2 (08:36→21:04)
[2018-04-18] MEDS: CARVEDILOL 3.125 MG TAB PO SCH ×2 (08:36→17:34)
[2018-04-18] MEDS: DULoxetine HCL 60 MG CAPSULE.DR PO SCH ×2 (08:36→21:04)
[2018-04-18] MEDS: OXYBUTYNIN 10 MG TAB.ER.24 PO SCH (08:36)
[2018-04-18] MEDS: cefTRIAXone IN SWFI 1,000 MG/10 ML SYRINGE IVP SCH (08:39)
[2018-04-18 08:48] LABS: Calcium 8.4 mg/dL (8.4-10.2); Potassium 4.4 mmol/L (3.5-5.1)
--- NOTE | 2018-04-18 21:08 | XR ---
EXAMINATION: XR chest 1V portable DATE AND TIME: 04/18/2018 7:57 PM CLINICAL INDICATION: hypoxia TECHNIQUE: AP portable upright COMPARISON: 04/17/2018 FINDINGS: The lungs are clear. The pleural spaces are negative. The cardiac silhouette is moderately enlarged, unchanged. The remainder of the mediastinal silhouette is unremarkable. The skeletal structures and soft tissues are negative for acute findings. IMPRESSION: NO ACUTE PROCESS.
[2018-04-18 23:28] VITALS: RESP 18
--- NOTE | 2018-04-19 07:28 | ECHOF ---
Referral Reason:CHF MEASUREMENTS -------- HEIGHT: 167.6 cm WEIGHT: 159.2 kg BP: RVIDd: 3.1 cm (< 3.3) IVSd: 1.1 cm (0.6 - 1.1) LVIDd: 4.9 cm (3.9 - 5.3) LVPWd: 1.1 cm (0.6 - 1.1) IVSs: 1.4 cm LVIDs: 3.4 cm LVPWs: 1.5 cm LAESV Index (A-L): 37.95 ml/m Ao Diam: 3.1 cm (2.0 - 3.7) AV Cusp: 1.5 cm (1.5 - 2.6) LA Diam: 3.7 cm (2.7 - 3.8) EPSS: 0.7 cm MV E Silver: 1.08 m/s MV DecT: 275 ms MV A Silver: 0.88 m/s MV E/A Ratio: 1.23 AV maxP.63 mmHg AV meanP.45 mmHg RAP: 15.00 mmHg RVSP: 42.44 mmHg MV EF SLOPE: 111.10 mm/s (70 - 150) MV EXCURSION: 1.73 cm (> 18.000) FINDINGS -------- Sinus rhythm. Resting bradycardia (HR<60bpm). This was a technically adequate study. The left ventricular size is normal. There is mild concentric left ventricular hypertrophy. Overa ll left ventricular systolic function is normal with, an EF between 55 - 60 %. The right ventricle is normal in size and function. LA is moderately dilated 34-39 ml/m2 The right atrium is normal in size. Aortic valve is trileaflet and is mildly thickened. There is no evidence of aortic regurgitation. There is no evidence of aortic stenosis. The mitral valve leaflets are mildly thickened. Mild mitral annular calcification present. Mild m itral regurgitation is present. Mild tricuspid regurgitation present. There is mild pulmonary hypertension. The right ventricular systolic pressure, as measured by Doppler, is 42.44mmHg. The pulmonic valve was not well visualized. The aortic root size is normal. The inferior vena cava is dilated with no significant inspiratory collapse which is consistent estima andera right atrial pressure of >20 mmHg. There is no pericardial effusion. CONCLUSIONS -------- 1. Sinus rhythm. 2. This was a technically adequate study. 3. The left ventricular size is normal. 4. There is mild concentric left ventricular hypertrophy. 5. Overall left ventricular systolic function is normal with, an EF between 55 - 60 %. 6. LA is moderately dilated 34-39 ml/m2 7. Aortic valve is trileaflet and is mildly thickened. 8. The mitral valve leaflets are mildly thickened. 9. Mild mitral annular calcification present. 10. Mild mitral regurgitation is present. 11. Mild tricuspid regurgitation present. 12. There is mild pulmonary hypertension. 13. The pulmonic valve was not well visualized. 14. The aortic root size is normal. 15. The inferior vena cava is dilated with no significant inspiratory collapse which is consistent es timated right atrial pressure of >20 mmHg. 16. There is no pericardial effusion. FEATHERER: Po Cruz RDCS
[2018-04-19 08:06] VITALS: BP 126/68; PULSE 58; TEMP 98.6
[2018-04-19 08:23] LABS: INR 3.6 (<1.2); Prothrombin Time 32.3 sec (9.0-12.0)
[2018-04-19] MEDS: CARVEDILOL 3.125 MG TAB PO SCH (08:29)
[2018-04-19 08:40] LABS: Anion Gap 3 mmol/L; Blood Urea Nitrogen 23 mg/dL (7-17); Calcium 8.3 mg/dL (8.4-10.2); Carbon Dioxide 26 mmol/L (22-30); Chloride 111 mmol/L (98-107); Glucose 84 mg/dL (74-99); Potassium 4.2 mmol/L (3.5-5.1); Sodium 140 mmol/L (137-145)
[2018-04-19] MEDS: ATORVASTATIN 10 MG TAB PO SCH (09:26)
[2018-04-19] MEDS: AMIODARONE 100 MG TAB PO SCH (09:26)
[2018-04-19] MEDS: LISINOPRIL 20 MG TAB PO SCH (09:26)
[2018-04-19] MEDS: cloNIDine HCL 0.1 MG TAB PO SCH (09:26)
[2018-04-19] MEDS: DULoxetine HCL 60 MG CAPSULE.DR PO SCH (09:26)
[2018-04-19] MEDS: OXYBUTYNIN 10 MG TAB.ER.24 PO SCH (09:26)
[2018-04-19] MEDS: cefTRIAXone IN SWFI 1,000 MG/10 ML SYRINGE IVP SCH (09:26)
[2018-04-19] MEDS: ASPIRIN 81 MG PO SCH (09:29)
--- NOTE | 2018-04-19 12:49 | P.DS ---
Providers Date of admission: 04/17/18 12:06 Attending physician: Julissa Cardona Primary care physician: Kendal Bhatia [facility] Course: Final Diagnoses: -Generalized weakness and fall: Etiology is unclear, possibly UTI. POssible dehydration.Lactic acidosis secondary to intravascular depletion, improved. -Congestive heart failure diastolic dysfunction, EF 55-60%, not in acute exacerbation. -Lactic acidosis due to intravascular depletion. -Atrial fibrillation, controlled ventricular rate. -Hypertension -Morbid obesity -Mitral regurgitation, mild as per repeat echo. Hospital course:Patient is a pleasant 73-year-old the female came in with generalized weakness and fall at home. Patient is obese does have history of congestive heart failure previous ejection fraction early 2017 was around 35% limited from improved had normal ejection fraction does have severe mitral regurgitation denied any shortness of breath orthopnea PND patient does have bilateral lower limb edema more in the left leg. Nonpitting edema up is to have chronic venous stasis. Doesn't have any pulmonary hypertension. Chest x- ray ,BNP 400s. Patient was maintained on IV fluids and holding of Lasix because of elevated lactic acid, initially. Repeat echocardiogram reported normal LV function, EF between 55 and 60%, mild pulmonary hypertension Etiology of generalized weakness is not clear patient denied any dysuria denied any fever chills and a cough. No signs or symptoms of sepsis although urine is bit abnormal, treated with IV Rocephin, empirically. Suspicion is low for urinary tract infection. She does have history of atrial fibrillation on Coumadin for valvular A. fib with INR of around 3.5 will hold off Coumadin today repeat INR tomorrow probably can be restarted back on her Coumadin tomorrow. Significant clinical improvement. Patient is being discharged in a stable condition with guarded prognosis. PHYSICAL EXAMINATION: GENERAL: The patient is alert and oriented x3, not in any acute distress. Morbidly obese CARDIOVASCULAR: S1 and S2 present. No murmurs, rubs, or gallops. PULMONARY: Chest is clear to auscultation, no wheezing or crackles. ABDOMEN: Soft, nontender, nondistended, normoactive bowel sounds. No palpable organomegaly. NEUROLOGICAL: Gross neurological examination did not reveal any focal deficits. The impression and plan of care has been dictated as directed. : I performed a history and examination of this patient, discussed the same with the dictator. I agree with the dictator's note ,documented as a scribe. Any additional findings or plans will be noted. I'm taken: 35 minutes Patient Condition at Discharge: Stable Plan - Discharge Summary Discharge Rx Participant: No New Discharge Prescriptions: New Cefuroxime Axetil [Ceftin] 500 mg PO BID #4 tab Continue DULoxetine HCL 60 mg PO BID Aspirin 81 mg PO DAILY Potassium Chloride [Klor-Con 8] 8 meq PO DAILY Lovastatin [Mevacor] 40 mg PO DAILY Oxybutynin Chloride [Ditropan XL] 10 mg PO DAILY Carvedilol [Coreg] 3.125 mg PO BID Furosemide [Lasix] 40 mg PO DAILY cloNIDine HCL [Catapres] 0.1 mg PO BID Lisinopril [Zestril] 20 mg PO DAILY Amiodarone [Cordarone] 100 mg PO DAILY Discontinued Warfarin [Coumadin] 7.5 mg PO DIRECTED Warfarin [Coumadin] 5 mg PO DIRECTED Spironolactone [Aldactone] 25 mg PO DAILY Discharge Medication List DULoxetine HCL 60 mg PO BID 10/20/14 [History] Aspirin 81 mg PO DAILY 06/08/15 [History] Lovastatin [Mevacor] 40 mg PO DAILY 08/31/16 [History] Potassium Chloride [Klor-Con 8] 8 meq PO DAILY 08/31/16 [History] Carvedilol [Coreg] 3.125 mg PO BID 10/03/16 [History] Furosemide [Lasix] 40 mg PO DAILY 10/03/16 [History] Oxybutynin Chloride [Ditropan XL] 10 mg PO DAILY 10/03/16 [History] Lisinopril [Zestril] 20 mg PO DAILY 12/30/17 [History] cloNIDine HCL [Catapres] 0.1 mg PO BID 12/30/17 [History] Amiodarone [Cordarone] 100 mg PO DAILY 04/17/18 [History] Cefuroxime Axetil [Ceftin] 500 mg PO BID #4 tab 04/19/18 [Rx] Follow up Appointment(s)/Referral(s): Kendal Bhatia MD [Primary Care Provider] - 3 Days Activity/Diet/Wound Care/Special Instructions: [facility] Diet: Regular activity: as tolerated COumadin On hold, repeat INR tomorrow PT/INR daily CBC,BMP in 3 days Discharge Disposition: TRANSFER TO SNF/ECF
--- NOTE | 2018-04-25 16:41 | P.PN ---
Subjective Progress Note Date: 04/18/18 Progress note being dictated for Dr. Cardona Interval history:Patient is a pleasant 73-year-old the female came in with generalized weakness and fall at home. Patient is obese does have history of congestive heart failure previous ejection fraction early 2017 was around 35% limited from improved had normal ejection fraction does have severe mitral regurgitation denied any shortness of breath orthopnea PND patient does have bilateral lower limb edema more in the left leg. Nonpitting edema up is to have chronic venous stasis. Doesn't have any pulmonary hypertension. I cannot really assess JVD because of her neck contour. Chest x-ray will be obtain BNP will be obtained. Patient was started on IV fluids and holding of Lasix because of elevated lactic acid. Repeat echocardiogram will be obtained. Etiology of generalized weakness is not clear patient denied any dysuria denied any fever chills and a cough. No signs or symptoms of sepsis although urine is bit abnormal because of which I started on empiric antibiotics even though my suspicion is low for urinary tract infection. Physical therapy and occupational therapy consultation will be obtained, she does have history of atrial fibrillation on Coumadin for valvular A. fib with INR of around 3.5 will hold off Coumadin today repeat INR tomorrow probably can be restarted back on her Coumadin tomorrow Review of Systems REVIEW OF SYSTEMS: CONSTITUTIONAL: As mentioned in HPI HEENT: No recent visual problems or hearing problems. Denied any sore throat. CARDIOVASCULAR: No chest pain, orthopnea, PND, no palpitations, no syncope. PULMONARY: No shortness of breath, no cough, no hemoptysis. GASTROINTESTINAL: No diarrhea, no nausea, no vomiting, no abdominal pain. Normoactive bowel sounds. NEUROLOGICAL: No headaches, no weakness, no numbness. HEMATOLOGICAL: Denies any bleeding or petechiae. GENITOURINARY: Denies any burning micturition, frequency, or urgency. MUSCULOSKELETAL/RHEUMATOLOGICAL: Denies any joint pain, swelling, or any muscle pain. ENDOCRINE: Denies any polyuria or polydipsia. The rest of the 14-point review of systems is negative. 04/18/18 T-max 99.2, mild shortness of breath with hypoxia-patient had been resuming O2 sats of high 90s on room air and currently down to 91%. Currently on IV fluid hydration which is being discontinued now. Echo reporting normal LV function, EF 55-60%, moderately dilated LA, mild concentric left ventricular hypertrophy, mild pulmonary hypertension .Denies chest pain, palpitations. Maintained on IV antibiotics. INR 3.6. Evaluated by PT/OT and subacute rehab recommended at discharge. Objective - Vital Signs Vital signs: Vital Signs Temp 97.0 F L 04/18/18 14:01 Pulse 55 L 04/18/18 14:01 Resp 16 04/18/18 14:01 BP 116/53 04/18/18 14:01 Pulse Ox 95 04/18/18 14:01 Intake & Output 04/18/18 04/18/18 04/19/18 06:59 18:59 06:59 Intake Total 500 Balance 500 Weight 159.211 kg Intake: Oral 500 Other: # Voids 1 2 - Exam GENERAL: The patient is alert and oriented x3, not in any acute distress. Morbidly obese HEENT: Pupils are round and equally reacting to light. EOMI. No scleral icterus. No conjunctival pallor. Normocephalic, atraumatic. No pharyngeal erythema. No thyromegaly. CARDIOVASCULAR: S1 and S2 present. No murmurs, rubs, or gallops. PULMONARY: Chest is clear to auscultation, no wheezing or crackles. ABDOMEN: Soft, nontender, nondistended, normoactive bowel sounds. No palpable organomegaly. MUSCULOSKELETAL: No joint swelling or deformity. EXTREMITIES: No cyanosis, clubbing, patient does have bilateral pedal edema more on the left side with chronic venous stasis dermatosis redness minimal local is of temperature which is chronic NEUROLOGICAL: Gross neurological examination did not reveal any focal deficits. SKIN: No rashes. - Labs CBC & Chem 7: 04/17/18 10:52 04/19/18 07:36 Labs: Abnormal Lab Results - Last 24 Hours (Table) 04/18/18 04/18/18 Range/Units 08:09 08:09 PT 33.2 H (9.0-12.0) sec INR 3.7 H (<1.2) Chloride 111 H (98-107) mmol/L BUN 22 H (7-17) mg/dL Glucose 73 L (74-99) mg/dL Assessment and Plan Assessment: -Generalized weakness and fall: Etiology is unclear but I cannot completely rule out urinary tract infection patient was started on Rocephin. Patient may be dehydrated patient does have lactic acidosis probably from intravascular depletion Lasix will be held patient will be given IV fluids. -Congestive heart failure history of systolic dysfunction which improved probably has diastolic dysfunction not in acute exacerbation. Hold off on Lasix as mentioned above. We'll get a BNP and a chest x-ray. Repeat echocardiogram will be obtained -Lactic is doses due to intravascular depletion. -Atrial fibrillation amiodarone and Coreg will be continued, patient will be resumed on an anti-coagulation INR is therapeutic at 3.4. Presently rate controlled. -Hypertension -Morbid obesity -Mitral regurgitation moderate to severe. Plan: Continue on current medication regime ,monitoring and symptomatic treatment. DC IV fluids, chest x-ray regarding hypoxia. Pending chest x-ray, resume Lasix. Continue holding Coumadin, INR 3.6. Discharge planning in progress for tomorrow to subacute rehab, preauth pending. The impression and plan of care has been dictated as directed. : I performed a history and examination of this patient, discussed the same with the dictator. I agree with the dictator's note ,documented as a scribe. Any additional findings or plans will be noted.
== END 2018-04-19 14:58 ==
LOC: EC 10:29 → 4MS4W 12:06
PROVIDERS: ADMIT Internal Medicine; ATTEND Internal Medicine
DX: R53.1 Weakness (principal); I11.0 Hypertensive heart disease with heart failure; I50.42 Chronic combined systolic (congestive) and diastolic (congestive) heart failure; I34.0 Nonrheumatic mitral (valve) insufficiency; E87.2 Acidosis; E86.9 Volume depletion, unspecified; I48.91 Unspecified atrial fibrillation; E78.5 Hyperlipidemia, unspecified; M19.90 Unspecified osteoarthritis, unspecified site; R32 Unspecified urinary incontinence; E66.01 Morbid (severe) obesity due to excess calories; M25.562 Pain in left knee; R29.6 Repeated falls; Z68.43 Body mass index [BMI] 50.0-59.9, adult; K76.9 Liver disease, unspecified; R60.9 Edema, unspecified; I87.2 Venous insufficiency (chronic) (peripheral); Z79.82 Long term (current) use of aspirin; Z79.01 Long term (current) use of anticoagulants; Z79.899 Other long term (current) drug therapy; Z90.49 Acquired absence of other specified parts of digestive tract; Z90.89 Acquired absence of other organs; Z90.710 Acquired absence of both cervix and uterus; Z98.42 Cataract extraction status, left eye; Z98.41 Cataract extraction status, right eye; Z86.73 Personal history of transient ischemic attack (TIA), and cerebral infarction without residual deficits; Z83.3 Family history of diabetes mellitus; Z82.49 Family history of ischemic heart disease and other diseases of the circulatory system; Z81.8 Family history of other mental and behavioral disorders; Z80.9 Family history of malignant neoplasm, unspecified; W19.XXXA Unspecified fall, initial encounter; Y92.009 Unspecified place in unspecified non-institutional (private) residence as the place of occurrence of the external cause
CPT/HCPCS: 99285 ×2; 96374 ×2; 96361 ×7; 96376 ×2; 36415; 93005; 93306; 97116; 97110; 97162; 97167; 83880; 80053; 80048 ×2; 82550; 82553; 83605 ×2; 83735; 84484; 85025; 85610 ×3; 85730; 81001; 73562; 71045; 71046; 93970; G0378 ×3; J0696 ×3

== ENCOUNTER 2018-09-16 02:29 | Inpatient (IN) | payer MEDICARE ==
--- NOTE | 2018-09-16 02:48 | ED ---
General Adult HPI - General Chief complaint: Fall Stated complaint: Non Weight-Bearing Source: EMS Mode of arrival: EMS Limitations: no limitations - Related Data Home Medications Medication Instructions Recorded Confirmed DULoxetine HCL 60 mg PO BID 10/20/14 04/17/18 Aspirin 81 mg PO DAILY 06/08/15 04/17/18 Lovastatin [Mevacor] 40 mg PO DAILY 08/31/16 04/17/18 Potassium Chloride [Klor-Con 8] 8 meq PO DAILY 08/31/16 04/17/18 Carvedilol [Coreg] 3.125 mg PO BID 10/03/16 04/17/18 Furosemide [Lasix] 40 mg PO DAILY 10/03/16 04/17/18 Oxybutynin Chloride [Ditropan XL] 10 mg PO DAILY 10/03/16 04/17/18 Lisinopril [Zestril] 20 mg PO DAILY 12/30/17 04/17/18 cloNIDine HCL [Catapres] 0.1 mg PO BID 12/30/17 04/17/18 Amiodarone [Cordarone] 100 mg PO DAILY 04/17/18 04/17/18 Previous Rx's Medication Instructions Recorded Cefuroxime Axetil [Ceftin] 500 mg PO BID #4 tab 04/19/18 Allergies Allergy/AdvReac Type Severity Reaction Status Date / Time No Known Allergies Allergy Verified 09/16/18 02:33 Review of Systems ROS Statement: Those systems with pertinent positive or pertinent negative responses have been documented in the HPI. ROS Other: All systems not noted in ROS Statement are negative. Past Medical History Past Medical History: Atrial Fibrillation, Heart Failure, CVA/TIA, Hyperlipidemia, Hypertension, Liver Disease, Osteoarthritis (OA) Additional Past Medical History / Comment(s): TIA, heart murmur, poor circulation in legs, swelling in lower legs, hepatitis age 14, urinary leakage/ incontinence History of Any Multi-Drug Resistant Organisms: None Reported Past Surgical History: Appendectomy, Cholecystectomy, Hysterectomy, Orthopedic Surgery Additional Past Surgical History / Comment(s): Bilateral cataracts, arthroscopy both knees, D&C, jose d, keo cataracts Past Anesthesia/Blood Transfusion Reactions: Motion Sickness Additional Past Anesthesia/Blood Transfusion Reaction / Comment(s): stated has never recieved blood Past Psychological History: No Psychological Hx Reported Smoking Status: Never smoker Past Alcohol Use History: None Reported Past Drug Use History: None Reported - Past Family History Sister(s) Family Medical History: Cancer Brother(s) Family Medical History: Cancer Mother Family Medical History: Dementia, Diabetes Mellitus Additional Family Medical History / Comment(s): age 89 Father Additional Family Medical History / Comment(s): age 70's from heart attack General Exam Limitations: no limitations Course Vital Signs 09/16/18 09/16/18 09/16/18 02:29 03:31 04:34 Temperature 99.2 F Pulse Rate 64 64 65 Respiratory 18 18 16 Rate Blood Pressure 84/40 97/49 91/57 O2 Sat by Pulse 95 95 95 Oximetry 09/16/18 09/16/18 04:50 05:30 Temperature Pulse Rate 64 57 L Respiratory 23 16 Rate Blood Pressure 100/59 97/47 O2 Sat by Pulse 97 99 Oximetry Medical Decision Making - Medical Decision Making Dictation was produced using [email or web address] dictation software. please excuse any grammatical, word or spelling errors. Chief Complaint: 73 year old female with past medical history of H fibrillation, CVA, heart failure, hypertension presents with syncopal episodes. History of Present Illness: She is 73-year-old female with multiple comorbidities. She presents with syncopal episodes. Patient has been having multiple episodes over the last several days. Patient states it's worse when she stands up from a sitting position. Patient does have prodromal symptoms prior to falling. She states she will follow-up back to her chair. Patient states she fell earlier today. She fell forward this time. She does not recall what happened. She just woke up and found herself on the ground. Patient denies any other symptoms at this time. Takes Coumadin for atrial fibrillation. Patient has any neurologic deficits. The ROS documented in this emergency department record has been reviewed and confirmed by me. Those systems with pertinent positive or negative responses have been documented in the HPI. All other systems are other negative and/or noncontributory. PHYSICAL EXAM: General Impression: Alert and oriented x3, not in acute distress HEENT: Normocephalic atraumatic, extra-ocular movements intact, pupils equal and reactive to light bilaterally, mucous membranes moist, mildly icteric Cardiovascular: Heart regular rate and rhythm, S1&S2 audible, no murmurs, rubs or gallops Chest: Lungs clear to auscultation bilaterally, no rhonchi, no wheeze, no rales Abdomen: Bowel sounds present, abdomen soft, non-tender, non-distended, no organomegaly Musculoskeletal: Pulses present and equal in all extremities, no peripheral edema Motor: Power 5/5 bilaterally, no focal deficits noted Neurological: CN II-XII grossly intact, no focal motor or sensory deficits noted Skin: Intact with no visualized rashes Psych: Normal affect and mood ED course: 73-year-old female presents with fall today. Patient has no specific complaints. Patient has been feeling very weak over the last several days. She had multiple falls over she's been falling into her chair. Physical examination does not reveal any findings of trauma. Vital signs upon arrival shows blood pressure of 84/40, rest of vital signs within acceptable limits.Lab data evaluation obtained. CBC shows mild leukocytosis of 12.2. Patient does have slight macrocytosis. Coag panel shows INR 3.7. Potassium 5.2. Creatinine of 1.48. Magnesium 1.5. Patient has troponin 1.510. Patient not having any chest symptoms or ACS related symptoms. Urinalysis shows findings consistent with urinary tract infection. Patient given ceftriaxone. Patient was given magnesium. Patient given multiple boluses of intravenous fluids for borderline low blood pressure. Patient be admitted for acute kidney injury, electrolyte derangement, dehydration and serial troponin measurements. Chest x- ray shows no acute processes. Head CT shows no acute processes. EKG interpretation: Ventricular rate 66, WI 164, QS 94, QTC 496. No WI prolongation, no QTC prolongation, no ST or T-wave changes noted. Overall, this EKG is unremarkable - Lab Data Result diagrams: 09/16/18 03:09 09/16/18 03:09 Lab Results 09/16/18 09/16/18 09/16/18 Range/Units 03:09 03:09 03:09 WBC 12.2 H (3.8-10.6) k/uL RBC 3.48 L (3.80-5.40) m/uL Hgb 11.6 (11.4-16.0) gm/dL Hct 36.1 (34.0-46.0) % MCV 104.0 H (80.0-100.0) fL MCH 33.3 (25.0-35.0) pg MCHC 32.0 (31.0-37.0) g/dL RDW 14.6 (11.5-15.5) % Plt Count 107 L (150-450) k/uL Neutrophils % 84 % Lymphocytes % 8 % Monocytes % 5 % Eosinophils % 1 % Basophils % 0 % Neutrophils # 10.3 H (1.3-7.7) k/uL Lymphocytes # 1.0 (1.0-4.8) k/uL Monocytes # 0.6 (0-1.0) k/uL Eosinophils # 0.1 (0-0.7) k/uL Basophils # 0.0 (0-0.2) k/uL Macrocytosis Slight PT (9.0-12.0) sec INR (<1.2) APTT (22.0-30.0) sec Sodium 139 (137-145) mmol/L Potassium 5.2 H (3.5-5.1) mmol/L Chloride 107 (98-107) mmol/L Carbon Dioxide 25 (22-30) mmol/L Anion Gap 7 mmol/L BUN 41 H (7-17) mg/dL Creatinine 1.48 H (0.52-1.04) mg/dL Est GFR (CKD-EPI)AfAm 40 (>60 ml/min/1.73 sqM) Est GFR (CKD-EPI)NonAf 35 (>60 ml/min/1.73 sqM) Glucose 97 (74-99) mg/dL Calcium 9.0 (8.4-10.2) mg/dL Magnesium 1.5 L (1.6-2.3) mg/dL Total Bilirubin 2.8 H (0.2-1.3) mg/dL Conjugated Bilirubin 0.0 (0.0-0.3) mg/dL Unconjugated Bilirubin 2.2 H (0.0-1.1) mg/dL Delta Bilirubin 0.6 H (0.0-0.2) mg/dL AST 46 H (14-36) U/L ALT 35 (9-52) U/L Alkaline Phosphatase 97 (38-126) U/L Total Creatine Kinase 58 (30-135) U/L CK-MB (CK-2) 1.9 (0.0-2.4) ng/mL CK-MB (CK-2) Rel Index 3.3 Troponin I 1.510 H* (0.000-0.034) ng/mL Total Protein 6.7 (6.3-8.2) g/dL Albumin 2.6 L (3.5-5.0) g/dL Urine Color Urine Appearance (Clear) Urine pH (5.0-8.0) Ur Specific [place] (1.001-1.035) Urine Protein (Negative) Urine Glucose (UA) (Negative) Urine Ketones (Negative) Urine Blood (Negative) Urine Nitrite (Negative) Urine Bilirubin (Negative) Urine Urobilinogen (<2.0) mg/dL Ur Leukocyte Esterase (Negative) Urine RBC (0-5) /hpf Urine WBC (0-5) /hpf Urine WBC Clumps (None) /hpf Ur Squamous Epith Cells (0-4) /hpf Amorphous Sediment (None) /hpf Urine Bacteria (None) /hpf Hyaline Casts (0-2) /lpf Urine Mucus (None) /hpf 09/16/18 09/16/18 Range/Units 03:09 05:23 WBC (3.8-10.6) k/uL RBC (3.80-5.40) m/uL Hgb (11.4-16.0) gm/dL Hct (34.0-46.0) % MCV (80.0-100.0) fL MCH (25.0-35.0) pg MCHC (31.0-37.0) g/dL RDW (11.5-15.5) % Plt Count (150-450) k/uL Neutrophils % % Lymphocytes % % Monocytes % % Eosinophils % % Basophils % % Neutrophils # (1.3-7.7) k/uL Lymphocytes # (1.0-4.8) k/uL Monocytes # (0-1.0) k/uL Eosinophils # (0-0.7) k/uL Basophils # (0-0.2) k/uL Macrocytosis PT 35.4 H (9.0-12.0) sec INR 3.7 H (<1.2) APTT 36.3 H (22.0-30.0) sec Sodium (137-145) mmol/L Potassium (3.5-5.1) mmol/L Chloride (98-107) mmol/L Carbon Dioxide (22-30) mmol/L Anion Gap mmol/L BUN (7-17) mg/dL Creatinine (0.52-1.04) mg/dL Est GFR (CKD-EPI)AfAm (>60 ml/min/1.73 sqM) Est GFR (CKD-EPI)NonAf (>60 ml/min/1.73 sqM) Glucose (74-99) mg/dL Calcium (8.4-10.2) mg/dL Magnesium (1.6-2.3) mg/dL Total Bilirubin (0.2-1.3) mg/dL Conjugated Bilirubin (0.0-0.3) mg/dL Unconjugated Bilirubin (0.0-1.1) mg/dL Delta Bilirubin (0.0-0.2) mg/dL AST (14-36) U/L ALT (9-52) U/L Alkaline Phosphatase (38-126) U/L Total Creatine Kinase (30-135) U/L CK-MB (CK-2) (0.0-2.4) ng/mL CK-MB (CK-2) Rel Index Troponin I (0.000-0.034) ng/mL Total Protein (6.3-8.2) g/dL Albumin (3.5-5.0) g/dL Urine Color Yellow Urine Appearance Cloudy H (Clear) Urine pH 5.5 (5.0-8.0) Ur Specific [place] 1.013 (1.001-1.035) Urine Protein Trace H (Negative) Urine Glucose (UA) Negative (Negative) Urine Ketones Negative (Negative) Urine Blood Negative (Negative) Urine Nitrite Negative (Negative) Urine Bilirubin Negative (Negative) Urine Urobilinogen 6.0 (<2.0) mg/dL Ur Leukocyte Esterase Large H (Negative) Urine RBC 1 (0-5) /hpf Urine WBC 105 H (0-5) /hpf Urine WBC Clumps Few H (None) /hpf Ur Squamous Epith Cells <1 (0-4) /hpf Amorphous Sediment Rare H (None) /hpf Urine Bacteria Many H (None) /hpf Hyaline Casts 25 H (0-2) /lpf Urine Mucus Moderate H (None) /hpf Disposition Clinical Impression: OLGA (acute kidney injury) Disposition: ADMITTED IP TO THIS [facility] Condition: Fair Referrals: Kendal Bhatia MD [Primary Care Provider] - 1-2 days Decision Time: 05:46
[2018-09-16] MEDS ORDERED: SODIUM CHLORIDE 0.9% 1,000 ML IV STA ×2 (02:54→04:35)
[2018-09-16 03:19] LABS: Basophils % (A) 0 %; Eosinophils # (A) 0.1 k/uL (0-0.7); Eosinophils % (A) 1 %; HCT 36.1 % (34.0-46.0); HGB 11.6 gm/dL (11.4-16.0); Lymphocytes % (A) 8 %; MCH 33.3 pg (25.0-35.0); Macrocytosis Slight; Mean Platelet Volume 7.7; Monocytes # (A) 0.6 k/uL (0-1.0); Monocytes % (A) 5 %; Neutrophils # (A) 10.3 k/uL (1.3-7.7); Neutrophils % (A) 84 %; Platelet Count 107 k/uL (150-450); RBC 3.48 m/uL (3.80-5.40); RDW 14.6 % (11.5-15.5); WBC 12.2 k/uL (3.8-10.6)
[2018-09-16 03:28] LABS: INR 3.7 (<1.2); Partial Thromboplastin Time 36.3 sec (22.0-30.0); Prothrombin Time 35.4 sec (9.0-12.0)
--- NOTE | 2018-09-16 03:32 | CT ---
EXAMINATION TYPE: CT brain wo con DATE OF EXAM: 09/16/2018 COMPARISON: 12/30/2017 HISTORY: Patient presents after fall. Evaluate for trauma headache CT DLP: 1066.4 mGycm Automated exposure control for dose reduction was used. FINDINGS: Ventricles have normal size. There is no mass effect nor midline shift. There is no sign of intracran ial hemorrhage. The calvarium is intact. IMPRESSION: NEGATIVE CT SCAN OF THE BRAIN. BRAIN APPEARS NORMAL FOR AGE. NO CHANGE COMPARED TO OLD EXAM.
--- NOTE | 2018-09-16 03:34 | XR ---
EXAMINATION TYPE: XR chest 2V DATE OF EXAM: 09/16/2018 COMPARISON: 04/18/2018 HISTORY: Hypoxemia TECHNIQUE: Frontal and lateral views of the chest are obtained. FINDINGS: There is no heart failure nor confluent pneumonic infiltrate. There are chest leads. Thora cic aorta is atheromatous. Costophrenic angles are clear. Bony thorax is intact. IMPRESSION: No active cardiopulmonary disease. No change.
[2018-09-16 03:36] LABS: Albumin 2.6 g/dL (3.5-5.0); Bilirubin, Delta 0.6 mg/dL (0.0-0.2); Bilirubin,Unconjugated 2.2 mg/dL (0.0-1.1); Magnesium 1.5 mg/dL (1.6-2.3); Potassium 5.2 mmol/L (3.5-5.1); Total Bilirubin 2.8 mg/dL (0.2-1.3); Total Protein 6.7 g/dL (6.3-8.2)
[2018-09-16 03:55] LABS: Creatine Kinase MB 1.9 ng/mL (0.0-2.4)
[2018-09-16 04:22] LABS: Troponin I 1.51 ng/mL (0.000-0.034)
[2018-09-16] MEDS: MAGNESIUM SULFATE-D5W PMX 1 GM in DEXTROSE/WATER 1 100ML.BAG IVPB SCH ×2 (04:38→05:43)
[2018-09-16 05:38] LABS: Amorphous Sediment,Urine Rare /hpf; Appearance,Urine Cloudy (Clear); Bacteria,Urine Many /hpf; Bilirubin,Urine Negative (Negative); Blood,Urine Negative (Negative); Color,Urine Yellow; Glucose,Urine (UA) Negative (Negative); Hyaline Casts,Urine 25 /lpf (0-2); Ketones,Urine Negative (Negative); Leukocyte Esterase,Urine Large (Negative); Mucus,Urine Moderate /hpf; Nitrite,Urine Negative (Negative); PH, Urine 5.5 (5.0-8.0); Protein,Urine Trace (Negative); RBC,Urine 1 /hpf (0-5); Specific Gravity,Urine 1.013 (1.001-1.035); Squamous Epithelial Cell,Urine <1 /hpf (0-4)
[2018-09-16] MEDS ORDERED: NALOXONE 0.4 MG/ML 1 ML VIAL IV PRN (05:47)
[2018-09-16 06:46] VITALS: BMI 36.9
[2018-09-16] MEDS: SODIUM CHLORIDE 0.9% 1,000 ML IV SCH ×3 (08:09→20:24)
[2018-09-16 09:41] LABS: Creatine Kinase MB 2.1 ng/mL (0.0-2.4)
[2018-09-16 09:53] LABS: Troponin I 0.945 ng/mL (0.000-0.034)
[2018-09-16] MEDS ORDERED: SODIUM CHLORIDE 0.9% 500 ML 500 ML IV ONE ×2 (11:01→11:29)
[2018-09-16] MEDS ORDERED: ALPRAZolam 0.25 MG TAB PO PRN (14:24)
[2018-09-16 15:17] LABS: Creatine Kinase MB 2.4 ng/mL (0.0-2.4)
[2018-09-16 15:21] LABS: Troponin I 0.63 ng/mL (0.000-0.034)
--- NOTE | 2018-09-16 17:02 | HP ---
HISTORY AND PHYSICAL CHIEF COMPLAINT: Weakness and fall. HISTORY OF PRESENT ILLNESS: This 73-year-old woman with past medical history of multiple medical problems including atrial fibrillation, history of CHF, hypertension, history of hyperlipidemia, history of DJD, history of appendectomy, history of cholecystectomy being followed by Dr. Bhatia in the outpatient setting not feeling well over the past several days. Patient had multiple falls and patient also had a fall last night and the patient was taken to [facility] and admitted and was admitted for further evaluation and treatment. The patient was also found to be hypotensive. Patient had multiple syncopal attacks as mentioned. As mentioned patient was dehydrated. Creatinine is 1.48. After bolus the patient is feeling better. Plasma lactic acid elevated at 3.4. Patient also had features of UTI. White count is elevated 12.2. The possible UTI with sepsis also considered. There is no history of fever, rigors. No headache. No history of any seizures. No history of chest pain, palpitations, hematochezia or melena at this time. PAST MEDICAL HISTORY: History of atrial ablation, history of CHF, CVA, TIA, hypertension, hyperlipidemia, history of liver disease, history of DJD. MEDICATIONS: Prior to admission include home medications include: 1. Aldactone 25 mg b.i.d. 2. Tylenol 325 mg q.4h p.r.n. 3. Coumadin 2.1 g daily. 4. Coreg 3.125 mg p.o. b.i.d. 5. Aspirin 81 mg p.o. 6. Cordarone 100 mg p.o. 7. Duloxetine 60 mg p.o. b.i.d. 8. Mevacor 50 mg p.o. daily. 9. Zestril 20 mg p.o. daily. 10.Lasix 40 mg p.o. 11.Klor-Con 8 mg p.o. daily. 12.Ditropan XL 10 mg p.o. 13.Catapres 0.1 p.o. b.i.d. ALLERGIES: None. FAMILY HISTORY: History of cancer in the family. SOCIAL HISTORY: No history of smoking. No history of alcohol intake. REVIEW OF SYSTEMS: ENT: No diminished hearing or vision. CARDIOVASCULAR: No angina. RESPIRATORY: As mentioned. GI: As mentioned earlier. : As mentioned earlier. NERVOUS SYSTEM: As mentioned earlier. ALLERGY/IMMUNOLOGY: No history of asthma or hay fever. MUSCULOSKELETAL: As mentioned. HEMATOLOGY: as mentioned. ENDOCRINE: No history of diabetes or hypothyroidism. CONSTITUTIONAL: As mentioned earlier. DERMATOLOGY: negative. RHEUMATOLOGY Negative. PSYCHIATRY: As mentioned earlier. PHYSICAL EXAMINATION: Alert, oriented x3. Pulse 51, blood pressure 72/52, respiration 18, temperature is 97.7, pulse ox 97% on 2 L. HEENT: Conjunctivae normal. Oral mucosa dry. Neck is no jugular venous distention. No carotid bruit. No lymph node enlargement. CARDIOVASCULAR: S1, S2. Ejection systolic murmur noted. RESPIRATORY: Breath sounds diminished in the bases. A few scattered rhonchi. No crackles. ABDOMEN: Soft, nontender. No mass palpable. LEGS: No edema. No swelling. NERVOUS SYSTEM: Higher functions as mentioned. Moves all four limbs. No focal motor deficit. LYMPHATICS: No lymphadenopathy in the neck, axillae, groin. SKIN: No ulcer, rash. JOINTS: No active deforming arthropathy. LABS: WBC 12.2, hemoglobin 11.6, and INR 3.7. Sodium 139, potassium 5.2, creatinine is 1.48, plasma lactic acid 3.4, total bilirubin 2.8. ASSESSMENT: 1. Acute renal failure, acute tubular necrosis with prerenal factors with severe dehydration. 2. Hypotension possibly secondary to dehydration. 3. Urinary tract infection with possible sepsis. 4. Increased WBC. 5. Increased MCV. 6. Increased PT/INR with possible Coumadin coagulopathy, mild. 7. Increased plasma lactic acid. 8. Hypomagnesemia. 9. Hyperbilirubinemia. 10.Troponin 1.517 indeterminate possible acute non ST-segment elevation myocardial infarction. 11.History of atrial fibrillation. 12.History of congestive heart failure. 13.Hypertension. 14.Hyperlipidemia. 15.History of liver disease. 16.History of cardiac murmur. 17.History of hepatitis. 19.History of cholecystectomy. 20.History of appendectomy. RECOMMENDATIONS AND DISCUSSION: In this 73-year-old woman who presented with multiple complex medical issues, at this time I recommend to continue current management, monitoring and symptomatic treatment. I recommend multiple fluid boluses as the blood pressure is not coming up. The patient may be transferred to ICU with a consultation with customer service cashier. Otherwise, I would also recommend broad-spectrum IV antibiotics and follow the cultures closely. Prognosis guarded because of multiple complex medical issues. Further recommendations to follow. Copy of report to Dr. Bhtaia who is the primary physician. Repeat labs will be ordered. See orders for details. Empiric antibiotics and Rocephin. Follow the cultures. Further recommendations to follow. Prognosis guarded. MMODL / IJN: [id number] / MTDD
--- NOTE | 2018-09-16 19:28 | CONS ---
CONSULTATION REASON FOR CONSULT: Renal failure. HISTORY OF PRESENT ILLNESS: Patient is a 73-year-old white female with no previous history of kidney disease. She has a history of hypertension and was admitted to the hospital with complaints of weakness, not feeling well. The patient denied any significant abdominal pain. She also had a fall and stated that she had multiple episodes over the last few days and felt very weak when she would stand up. Blood pressure was noted to be low at the time of admission. Systolic blood pressure was as low as 78 mmHg. Patient is receiving IV fluid boluses. She was maintained on BLAIR inhibitors prior to admission. Serum creatinine was 1.48 mg/dL. A review of previous labs shows a creatinine of 0.7 on 04/19/2018. PAST MEDICAL HISTORY: Hypertension, history of atrial fibrillation, history of CVA, TIA, osteoarthritis, history of hepatitis at age 14, most likely hepatitis A. PAST SURGICAL HISTORY: Appendectomy, cholecystectomy, hysterectomy, bilateral cataract surgery, arthroscopy both knees, D&C, cataract surgery. SOCIAL HISTORY: Negative for smoking, drug abuse or alcohol abuse. ALLERGIES: None. MEDICATIONS: Medications at home included aspirin, Mevacor, potassium Coreg, Lasix, Ditropan, Zestril, clonidine, Cordarone. REVIEW OF SYSTEMS: As per HPI. Other systems negative. PHYSICAL EXAMINATION: Patient is comfortable, awake, alert, oriented x3, not in any acute distress. Blood pressure was 92/53, heart rate 51 per minute, patient is afebrile. Examination of the heart S1, S2. Examination lungs bilateral breath sounds are heard. Abdomen is soft, nontender. Examination lower extremities shows no significant edema. PRODUCT DEVELOPMENT COORDINATOR exam is grossly intact. Labs show sodium of 139, potassium 5.2, chloride 107, BUN 41, serum creatinine 1.48. Lactic acid was at 3.4, hemoglobin 11.6 g/dL. ASSESSMENT: 1. Acute kidney injury secondary to hypotension/hypoperfusion and underlying infection and urinary tract infection, currently nonoliguric. Continue aggressive IV fluids. Continue with antibiotics. Hold off on BLAIR inhibitors. Repeat labs in a.m. 2. Mild hyperkalemia associated with acute kidney injury and hypotension in the setting of use of BLAIR inhibitor prior to admission. Expect improvement with improving urine output and renal function. 3. Urinary tract infection. Urine culture is pending. Continue with antibiotics. 4. History of hypertension. 5. History of atrial fibrillation. INR was 3.7. Rate is controlled, in fact, a bit on the lower side at 51. PLAN: Continue aggressive IV hydration. Hold off on BLAIR inhibitors. Repeat labs in a.m. MMDIAMOND / VIRGINIE: [id number] /
[2018-09-16] MEDS: DULoxetine HCL 60 MG CAPSULE.DR PO SCH (20:23)
[2018-09-16] MEDS: ACETAMINOPHEN TAB 325 MG TAB PO PRN (20:23)
[2018-09-17] MEDS: SODIUM CHLORIDE 0.9% 1,000 ML IV SCH ×3 (05:04→16:33)
[2018-09-17] MEDS: PANTOPRAZOLE 40 MG TABLET PO SCH (06:17)
[2018-09-17 06:47] LABS: Basophils % (A) 0 %; Eosinophils % (A) 0 %; HGB 10.6 gm/dL (11.4-16.0); Lymphocytes # (A) 0.7 k/uL (1.0-4.8); Lymphocytes % (A) 14 %; MCH 33.1 pg (25.0-35.0); MCHC 31.2 g/dL (31.0-37.0); MCV 106.2 fL (80.0-100.0); Macrocytosis Moderate; Mean Platelet Volume 8.2; Monocytes # (A) 0.4 k/uL (0-1.0); Monocytes % (A) 8 %; Neutrophils # (A) 3.9 k/uL (1.3-7.7); Neutrophils % (A) 74 %; RDW 14.7 % (11.5-15.5); WBC 5.3 k/uL (3.8-10.6)
[2018-09-17 06:48] LABS: Calcium 8.1 mg/dL (8.4-10.2)
[2018-09-17 06:50] LABS: INR 2.4 (<1.2); Prothrombin Time 23.3 sec (9.0-12.0)
[2018-09-17 07:08] LABS: Platelet Count 97 k/uL (150-450)
[2018-09-17] MEDS: DULoxetine HCL 60 MG CAPSULE.DR PO SCH ×2 (08:55→20:29)
[2018-09-17] MEDS: OXYBUTYNIN 10 MG TAB.ER.24 PO SCH (08:55)
[2018-09-17] MEDS: ASPIRIN 81 MG PO SCH (08:55)
[2018-09-17] MEDS ORDERED: AMIODARONE 100 MG TAB PO SCH (09:00)
--- NOTE | 2018-09-17 10:32 | P.CRDCN ---
History of Present Illness Consult date: 09/17/18 Requesting physician: Wade Mills Reason for Consult (text): Abnormal troponin Chief complaint: Weakness and falls History of present illness: This is a 73-year-old female who follows regularly with Dr. Hobbs in the office. She has a known history of hypertension, hyperlipidemia, paroxysmal atrial fibrillation, dilated cardiomyopathy, who underwent a JOSE D in September 2016 which did not reveal any evidence of intracardiac thrombus, it did reveal mild to moderate MR, left atrium appear to be enlarged and left ventricular systolic function was preserved at that time following that patient did undergo cardioversion. An echocardiogram with Doppler study performed in March 2018 revealed a normal left ventricular systolic function. Patient presents to the hospital on this occasion with symptoms of weakness. According to the patient, she has had multiple falls at home. She states that she does not pass out on any of these occasions, her legs become extremely weak and cannot hold her up. According to the patient, she stands up from her chair and sometimes falls back into the chair because she is so weak. CAT scan of the brain negative, appears normal for the patient's age. Chest x-ray does not reveal any active cardiopulmonary disease. EKG on presentation here shows normal sinus rhythm with nonspecific ST-T wave changes. Blood pressure on arrival here 84/40, heart rate in the 60s, 95% on room air, temperature 99.2. Her blood pressure this morning at 7:30 is documented to be 164/70. White blood cell count 12.2 on admission 5.3 this morning. Hemoglobin 11.6 on admission, 10.6 this morning, platelet count 97. INR on admission 3.7, 2.4 this morning. Admission electrolytes, sodium 139, potassium 5.2, BUN 41 and creatinine 1.4. This morning sodium 141, potassium 4.0, BUN 29 and creatinine 0.9. Magnesium level I.5 and 1.7, total bilirubin 2.8 unconjugated bili 2.2, delta bilirubin 0.6 AST 46 and ALT 35 alk phos 97. Troponin 1.5, 0.9, 0.6. Urinalysis did reveal a UTI. At the time of my examination this morning, patient is sitting up in her chair at bedside. She denies any dizziness or lightheadedness. She did get up and ambulate briefly with the nurse this morning, states that overall she felt stronger. She was given IV fluid boluses in the emergency room. Past Medical History Past Medical History: Atrial Fibrillation, Heart Failure, CVA/TIA, Hyperlipidemia, Hypertension, Liver Disease, Osteoarthritis (OA) Additional Past Medical History / Comment(s): TIA, heart murmur, poor circulation in legs, swelling in lower legs, hepatitis age 14, urinary leakage/ incontinence History of Any Multi-Drug Resistant Organisms: None Reported Past Surgical History: Appendectomy, Cholecystectomy, Hysterectomy, Orthopedic Surgery Additional Past Surgical History / Comment(s): Bilateral cataracts, arthroscopy both knees, D&C, jose d, keo cataracts Past Anesthesia/Blood Transfusion Reactions: No Reported Reaction, Motion Sickness Additional Past Anesthesia/Blood Transfusion Reaction / Comment(s): stated has never recieved blood Past Psychological History: No Psychological Hx Reported Smoking Status: Never smoker Past Alcohol Use History: None Reported Additional Past Alcohol Use History / Comment(s): lives with spouse. has cane/ walker Past Drug Use History: None Reported - Past Family History Sister(s) Family Medical History: Cancer Brother(s) Family Medical History: Cancer Mother Family Medical History: Dementia, Diabetes Mellitus Additional Family Medical History / Comment(s): age 89 Father Additional Family Medical History / Comment(s): age 70's from heart attack Medications and Allergies Home Medications Medication Instructions Recorded Confirmed Type DULoxetine HCL 60 mg PO BID 10/20/14 09/16/18 History Aspirin 81 mg PO DAILY 06/08/15 09/16/18 History Lovastatin [Mevacor] 40 mg PO DAILY 08/31/16 09/16/18 History Potassium Chloride [Klor-Con 8] 8 meq PO DAILY 08/31/16 09/16/18 History Carvedilol [Coreg] 3.125 mg PO BID 10/03/16 09/16/18 History Furosemide [Lasix] 40 mg PO DAILY 10/03/16 09/16/18 History Oxybutynin Chloride [Ditropan XL] 10 mg PO DAILY 10/03/16 09/16/18 History Lisinopril [Zestril] 20 mg PO DAILY 12/30/17 09/16/18 History cloNIDine HCL [Catapres] 0.1 mg PO BID 12/30/17 09/16/18 History Amiodarone [Cordarone] 100 mg PO DAILY 04/17/18 09/16/18 History Acetaminophen Tab [Tylenol Tab] 325 mg PO Q4H 09/16/18 09/16/18 History Spironolactone [Aldactone] 25 mg PO DAILY 09/16/18 09/16/18 History Warfarin Sodium 2.5 mg PO DAILY 09/16/18 09/16/18 History Allergies Allergy/AdvReac Type Severity Reaction Status Date / Time No Known Allergies Allergy Verified 09/16/18 10:38 Physical Exam Vitals: Vital Signs Temp Pulse Resp BP Pulse Ox 09/17/18 07:35 98.3 F 64 16 164/71 94 L 09/17/18 04:00 98.2 F 60 17 98/53 92 L 09/16/18 23:53 68 18 128/70 91 L 09/16/18 20:00 98.4 F 62 18 133/65 97 09/16/18 18:40 128/62 09/16/18 16:00 58 L 18 09/16/18 15:32 97.5 F L 58 L 18 102/53 94 L 09/16/18 11:12 51 L 18 09/16/18 11:11 92/53 09/16/18 11:07 97.7 F 51 L 18 78/52 97 Intake and Output 09/16/18 09/17/18 09/17/18 22:59 06:59 14:59 Intake Total 540 240 Output Total 300 Balance 540 -300 240 Intake: Intake, IV Titration 150 Amount Sodium Chloride 0.9% 1, 150 000 ml @ 150 mls/hr IV . Q6H40M [facility] Rx#:[id number] Oral 540 90 Output: Urine 300 Other: Voiding Method Toilet Toilet # Voids 1 Weight 102.5 kg PHYSICAL EXAMINATION: GENERAL: 73-year-old female in no acute distress at the time of my examination HEENT: Head is atraumatic, normocephalic. Pupils equal, round. Sclera anicteric. Conjunctiva are clear. Mucous membranes of the mouth are moist. Neck is supple. There is no elevated jugular venous pressure. No carotid bruit is heard. HEART EXAMINATION: Heart S1 S2 1 systolic murmur is heard CHEST EXAMINATION: Lungs are clear to auscultation and precussion. No chest wall tenderness is noted on palpation or with deep breathing. ABDOMEN: Soft, obese, nontender. Bowel sounds are heard. No organomegaly noted. EXTREMITIES: 2+ peripheral pulses with 1+ evidence of peripheral edema, patient does have evidence of several ecchymotic areas on her arms and mild ecchymosis on the chest area, from her frequent falls.. NEUROLOGIC patient is awake, alert and oriented 3 . . Results 09/17/18 06:20 09/17/18 06:20 Cardiac Enzymes 09/16/18 Range/Units 14:23 CK-MB (CK-2) 2.4 (0.0-2.4) ng/mL Troponin I 0.630 H* (0.000-0.034) ng/mL Coagulation 09/17/18 Range/Units 06:20 PT 23.3 H (9.0-12.0) sec CBC 09/17/18 Range/Units 06:20 WBC 5.3 (3.8-10.6) k/uL RBC 3.20 L (3.80-5.40) m/uL Hgb 10.6 L (11.4-16.0) gm/dL Hct 34.0 (34.0-46.0) % Plt Count 97 L (150-450) k/uL Comprehensive Metabolic Panel 09/17/18 Range/Units 06:20 Sodium 141 (137-145) mmol/L Potassium 4.0 (3.5-5.1) mmol/L Chloride 116 H (98-107) mmol/L Carbon Dioxide 23 (22-30) mmol/L BUN 29 H (7-17) mg/dL Creatinine 0.91 (0.52-1.04) mg/dL Glucose 100 H (74-99) mg/dL Calcium 8.1 L (8.4-10.2) mg/dL Current Medications Generic Name Dose Route Start Last Admin Trade Name Freq PRN Reason Stop Dose Admin Acetaminophen 650 mg 09/16/18 05:47 09/16/18 20:23 Tylenol Tab PO 650 mg Q6HR PRN Administration Mild Pain or Fever > 100.5 Alprazolam 0.25 mg 09/16/18 14:24 Xanax PO TID PRN Anxiety Aspirin 81 mg 09/17/18 09:00 09/17/18 08:55 Aspirin PO 81 mg DAILY FRANKI Administration Duloxetine HCl 60 mg 09/16/18 21:00 09/17/18 08:55 Cymbalta PO 60 mg BID FRANKI Administration Sodium Chloride 1,000 mls @ 150 mls/hr 09/16/18 06:00 09/17/18 09:46 Saline 0.9% IV 150 mls/hr .Q6H40M FRANKI Administration Ceftriaxone Sodium 1,000 mg/ 50 mls @ 100 mls/hr 09/16/18 11:15 09/17/18 08: 56 Sodium Chloride IVPB 100 mls/hr Q24HR FRANKI Administration Multivitamins 1 each 09/17/18 12:00 Theragran PO DAILY@1200 FRANKI Naloxone HCl 0.2 mg 09/16/18 05:47 Narcan IV Q2M PRN Opioid Reversal Oxybutynin Chloride 10 mg 09/17/18 09:00 09/17/18 08:55 Ditropan Xl PO 10 mg DAILY FRANKI Administration Pantoprazole Sodium 40 mg 09/17/18 07:30 09/17/18 06:17 Protonix PO 40 mg [id number] FRANKI Administration Warfarin Sodium 2.5 mg 09/16/18 13:00 Coumadin PO DAILY FRANKI Intake and Output 09/16/18 09/17/18 09/17/18 22:59 06:59 14:59 Intake Total 540 240 Output Total 300 Balance 540 -300 240 Intake: Intake, IV Titration 150 Amount Sodium Chloride 0.9% 1, 150 000 ml @ 150 mls/hr IV . Q6H40M FRANKI Rx#:[id number] Oral 540 90 Output: Urine 300 Other: Voiding Method Toilet Toilet # Voids 1 Weight 102.5 kg 09/17/18 06:20 09/17/18 06:20 EKG Interpretations (text) EKG shows a normal sinus rhythm with nonspecific ST-T wave changes. Assessment and Plan Plan: Assessment and plan #1 progressive weakness with frequent falls with no evidence of syncope. Patient denies any passing out on any of her episodes of falls. #2 hypotension, could be secondary to dehydration #3 abnormal renal function, could be secondary to dehydration. #4 positive UTI #5 hypertension history #6 hyperlipidemia #7 paroxysmal atrial fibrillation for which the patient takes Coumadin, INR 3.7 on admission, 2.4 this morning. #8 history of dilated cardiomyopathy, echocardiogram with Doppler study performed in March of last year revealed a normal left ventricular systolic function. #9 abnormal troponin, patient denies having any chest discomfort. Could be secondary to supply and demand mismatch. Plan We will obtain a repeat echocardiogram with Doppler study. We will check orthostatic heart rate and blood pressure every shift. The patient did receive IV fluid boluses in the emergency room because of the hypotension, her creatinine is also improved this morning to 0.9. We will decrease the IV fluids to KVO this morning. Aldactone, Coreg, Zestril, Cordarone, and Catapres are currently on hold. We will monitor the blood pressure and electrolytes closely, and gradually resume some of her medications. Further recommendations to follow. DNP note has been reviewed, I agree with a documented findings and plan of care. Patient was seen and examined.
--- NOTE | 2018-09-17 10:41 | P.PN ---
Subjective Patient is seen in follow-up for acute kidney injury. Creatinine on the 0.9 today. Currently resting in bed. Oral intake is good. No vomiting or diarrhea. She is maintained on normal saline at 150 mL an hour. Vital signs are stable. General: The patient appeared well nourished and normally developed. HEENT: Head exam is unremarkable. Neck is without jugular venous distension. LUNGS: Lungs are clear to auscultation and percussion. Breath sounds decreased. HEART: Rate and Rhythm are regular. First and second heart sounds normal. No murmurs, rubs or gallops. ABDOMEN: Abdominal exam reveals normal bowel sounds. Non-tender and non- distended. No evidence of peritonitis. EXTREMITITES: No clubbing, cyanosis, or edema. Objective - Vital Signs Vital signs: Vital Signs Temp 98.3 F 09/17/18 07:35 Pulse 64 09/17/18 07:35 Resp 16 09/17/18 07:35 BP 164/71 09/17/18 07:35 Pulse Ox 94 L 09/17/18 07:35 Intake & Output 09/16/18 09/17/18 09/17/18 18:59 06:59 18:59 Intake Total 140 540 240 Output Total 300 Balance 140 240 240 Weight 102.5 kg Intake: Intake, IV Titration 150 Amount Sodium Chloride 0.9% 1, 150 000 ml @ 150 mls/hr IV . Q6H40M [facility] Rx#:[id number] Oral 140 540 90 Output: Urine 300 Other: Voiding Method Toilet # Voids 1 - Labs CBC & Chem 7: 09/17/18 06:20 09/17/18 06:20 Labs: Abnormal Lab Results - Last 24 Hours (Table) 09/16/18 09/16/18 09/17/18 Range/Units 03:09 14:23 06:20 RBC 3.20 L (3.80-5.40) m/uL Hgb 10.6 L (11.4-16.0) gm/dL MCV 106.2 H (80.0-100.0) fL Plt Count 97 L (150-450) k/uL Lymphocytes # 0.7 L (1.0-4.8) k/uL PT (9.0-12.0) sec INR (<1.2) Chloride (98-107) mmol/L BUN (7-17) mg/dL Glucose (74-99) mg/dL Plasma Lactic Acid Karson 3.4 H* (0.7-2.0) mmol/L Calcium (8.4-10.2) mg/dL Troponin I 0.630 H* (0.000-0.034) ng/mL 09/17/18 09/17/18 Range/Units 06:20 06:20 RBC (3.80-5.40) m/uL Hgb (11.4-16.0) gm/dL MCV (80.0-100.0) fL Plt Count (150-450) k/uL Lymphocytes # (1.0-4.8) k/uL PT 23.3 H (9.0-12.0) sec INR 2.4 H (<1.2) Chloride 116 H (98-107) mmol/L BUN 29 H (7-17) mg/dL Glucose 100 H (74-99) mg/dL Plasma Lactic Acid Karson (0.7-2.0) mmol/L Calcium 8.1 L (8.4-10.2) mg/dL Troponin I (0.000-0.034) ng/mL Microbiology - Last 24 Hours (Table) 09/16/18 05:23 Urine Culture - Preliminary Urine,Catheterized Assessment and Plan Plan: Assessment: 1. Acute kidney injury mostly prerenal improved with IV hydration. Creatinine 0.91 today. 2. Mild hyperkalemia secondary to acute kidney injury and use of BLAIR inhibitor. Resolved. 3. UTI maintain on antibiotics. Urine culture pending. 4. Benign hypertension. Controlled. Plan: Decrease rate of normal saline to 70 mL an hour. Encouraged oral intake. Avoid nephrotoxins. Follow-up urine culture. Repeat electrolytes the morning. Can likely Hep-Lock fluids tomorrow and resume home regimen of diuretics.
[2018-09-17] MEDS: MULTIVITAMINS, THERA 1 EACH TAB PO SCH (11:04)
[2018-09-17] MEDS: AMIODARONE 100 MG TAB PO SCH (16:32)
[2018-09-17] MEDS: CARVEDILOL 3.125 MG TAB PO SCH (17:56)
[2018-09-17] MEDS: ACETAMINOPHEN TAB 325 MG TAB PO PRN (23:55)
--- NOTE | 2018-09-18 00:23 | P.PN ---
Subjective Progress Note Date: 09/17/18 Principal diagnosis: Multiple falls, dehydration and acute kidney injury Electrolyte abnormalities Patient is a 73-year-old female with a known history ofhypertension, hyperlipidemia, paroxysmal atrial fibrillation, dilated cardiomyopathy, who underwent a AILEEN in September 2016 which did not reveal any evidence of intracardiac thrombus, it did reveal mild to moderate MR, left atrium appear to be enlarged and left ventricular systolic function was preserved at that time following that patient did undergo cardioversion. Patient was admitted to the hospital due to multiple falls and generalized weakness. CT head is negative. Chest x-ray showed no acute cardio pulmonary process EKG showed normal sinus rhythm. Troponin 1.5, 0.9, 0.6 Patient was hypotensive with blood pressures 84/ 40 mmHg on admission urine cultures is growing gram-negative bacilli. Currently patient denied any complaints of chest pain or shortness of breath. Able to sit in the chair. Denied any complaints of nausea vomiting or abdominal pain. No diarrhea. No complaints of dysuria or hematuria. Currently being continued on antibiotics in the form of ceftriaxone. Cardiology is following. Current medications reviewed. blood pressure medications were held due to hypotension. Active Medications Acetaminophen (Tylenol Tab) 650 mg PO Q6HR PRN PRN Reason: Mild Pain or Fever > 100.5 Last Admin: 09/17/18 23:55 Dose: 650 mg Alprazolam (Xanax) 0.25 mg PO TID PRN PRN Reason: Anxiety Amiodarone HCl (Cordarone) 100 mg PO DAILY [facility] Last Admin: 09/17/18 16:32 Dose: 100 mg Aspirin (Aspirin) 81 mg PO DAILY [facility] Last Admin: 09/17/18 08:55 Dose: 81 mg Atorvastatin Calcium (Lipitor) 10 mg PO DAILY [facility] Carvedilol (Coreg) 3.125 mg PO BID-W/MEALS [facility] Last Admin: 09/17/18 17:56 Dose: 3.125 mg Duloxetine HCl (Cymbalta) 60 mg PO BID [facility] Last Admin: 09/17/18 20:29 Dose: 60 mg Sodium Chloride (Saline 0.9%) 1,000 mls @ 70 mls/hr IV .[id number] [facility] Last Admin: 09/17/18 16:33 Dose: 70 mls/hr Ceftriaxone Sodium 1,000 mg/ (Sodium Chloride) 50 mls @ 100 mls/hr IVPB Q24HR [facility] Last Admin: 09/17/18 08:56 Dose: 100 mls/hr Multivitamins (Theragran) 1 each PO DAILY@1200 [facility] Last Admin: 09/17/18 11:04 Dose: 1 each Naloxone HCl (Narcan) 0.2 mg IV Q2M PRN PRN Reason: Opioid Reversal Oxybutynin Chloride (Ditropan Xl) 10 mg PO DAILY [facility] Last Admin: 09/17/18 08:55 Dose: 10 mg Pantoprazole Sodium (Protonix) 40 mg PO AC-[id number] [facility] Last Admin: 09/17/18 06:17 Dose: 40 mg Warfarin Sodium (Coumadin) 2.5 mg PO DAILY [facility] Objective - Vital Signs Vital signs: Vital Signs Temp 98.2 F 09/17/18 20:00 Pulse 63 09/17/18 20:00 Resp 16 09/17/18 20:00 BP 176/77 09/17/18 20:00 Pulse Ox 100 09/17/18 20:00 Intake & Output 09/17/18 09/17/18 09/18/18 06:59 18:59 06:59 Intake Total 540 600 440 Output Total 300 Balance 240 600 440 Weight 102.5 kg Intake: Intake, IV Titration 150 140 Amount Sodium Chloride 0.9% 1, 150 140 000 ml @ 70 mls/hr IV . [id number] [facility] Rx#:[id number] Oral 540 450 300 Output: Urine 300 Other: Voiding Method Toilet Toilet Diaper # Voids 1 2 - Exam PHYSICAL EXAMINATION: Patient is lying in the bed comfortably, no acute distress, awake alert and oriented.. HEENT: Normocephalic. Neck is supple. Pupils reactive. Nostrils clear. Oral cavity is moist. Ears reveal no drainage. Neck reveals no JVD, carotid bruits, or thyromegaly. CHEST EXAMINATION: Trachea is central. Symmetrical expansion. Lung rose clear to auscultation and percussion. CARDIAC: Normal S1, S2 with no gallops. No murmurs ABDOMEN: Soft. Bowel sounds normal. No organomegaly. No abdominal bruits. Extremities: reveal no edema. No clubbing or cyanosis Neurologically awake, alert, oriented x3 with well-coordinated movements. No focal deficits noted Skin: No rash or skin lesions. Psychiatric: Coperative. Nonsuicidal Musculoskeletal: No joint swelling or deformity. Normal range of motion. - Labs CBC & Chem 7: 09/17/18 06:20 09/17/18 06:20 Labs: Abnormal Lab Results - Last 24 Hours (Table) 09/17/18 09/17/18 09/17/18 Range/Units 06:20 06:20 06:20 RBC 3.20 L (3.80-5.40) m/uL Hgb 10.6 L (11.4-16.0) gm/dL MCV 106.2 H (80.0-100.0) fL Plt Count 97 L (150-450) k/uL Lymphocytes # 0.7 L (1.0-4.8) k/uL PT 23.3 H (9.0-12.0) sec INR 2.4 H (<1.2) Chloride 116 H (98-107) mmol/L BUN 29 H (7-17) mg/dL Glucose 100 H (74-99) mg/dL Calcium 8.1 L (8.4-10.2) mg/dL Microbiology - Last 24 Hours (Table) 09/16/18 14:23 Blood Culture - Preliminary Blood No Growth after 24 hours 09/16/18 05:23 Urine Culture - Preliminary Urine,Catheterized Gram Neg Bacilli Assessment and Plan Assessment: Generalized weakness and near syncope likely due to orthostatic hypotension. dehydration and volume depletion. Hypotension. Currently blood pressure medications were held. Gram-negative bacillary urinary tract infection Acute kidney injury most likely prerenal improved now. Hypertension Hyperlipidemia Paroxysmal atrial fibrillation on Coumadin for anticoagulation Dilated cardiomyopathy. Last echocardiogram in March 2018 showed normal EF Elevated troponin level unlikely ACS. Lactic acidosis due to hypotension and decreased tissue perfusion. Improved. Morbid obesity BMI 36.5 Plan: Patient was given fluid boluses with improvement in blood pressure currently. We will start back on blood pressure medications as tolerated. Renal function is improved now. Cardiology and nephrology is following. Follow-up final urine culture report. Continue the current management and further recommendations based on the clinical course. Coumadin monitoring. Prognosis is guarded with multiple medical problems and comorbid conditions. Time with Patient: Greater than 30
[2018-09-18] MEDS: SODIUM CHLORIDE 0.45% 1,000 ML IV SCH (02:00)
[2018-09-18] MEDS: PANTOPRAZOLE 40 MG TABLET PO SCH (06:53)
[2018-09-18] MEDS: CARVEDILOL 3.125 MG TAB PO SCH ×2 (06:53→17:44)
[2018-09-18 06:56] LABS: Basophils % (A) 0 %; Eosinophils % (A) 0 %; HCT 32.2 % (34.0-46.0); HGB 10.2 gm/dL (11.4-16.0); Lymphocytes % (A) 21 %; MCH 33.8 pg (25.0-35.0); MCHC 31.8 g/dL (31.0-37.0); MCV 106.4 fL (80.0-100.0); Macrocytosis Moderate; Monocytes # (A) 0.3 k/uL (0-1.0); Monocytes % (A) 8 %; Neutrophils % (A) 67 %; RBC 3.02 m/uL (3.80-5.40); RDW 14.5 % (11.5-15.5); WBC 4.5 k/uL (3.8-10.6)
[2018-09-18 06:57] LABS: Platelet Count 93 k/uL (150-450)
[2018-09-18 07:03] LABS: INR 2.1 (<1.2); Prothrombin Time 20.5 sec (9.0-12.0)
[2018-09-18 07:22] LABS: Calcium 7.8 mg/dL (8.4-10.2); Potassium 4.2 mmol/L (3.5-5.1)
[2018-09-18] MEDS: DULoxetine HCL 60 MG CAPSULE.DR PO SCH ×2 (09:03→21:59)
[2018-09-18] MEDS: AMIODARONE 100 MG TAB PO SCH (09:03)
[2018-09-18] MEDS: OXYBUTYNIN 10 MG TAB.ER.24 PO SCH (09:03)
[2018-09-18] MEDS: WARFARIN 2.5 MG TAB PO SCH (09:03)
[2018-09-18] MEDS: ASPIRIN 81 MG PO SCH (09:03)
[2018-09-18] MEDS: ATORVASTATIN 10 MG TAB PO SCH (09:03)
[2018-09-18] MEDS: MULTIVITAMINS, THERA 1 EACH TAB PO SCH (11:37)
[2018-09-18] MEDS: LISINOPRIL 20 MG TAB PO SCH (11:37)
--- NOTE | 2018-09-18 12:25 | P.PN ---
Subjective Patient is seen in follow-up for acute kidney injury which has resolved. Currently resting in bed. Oral intake is good. No vomiting or diarrhea. Vital signs are stable. General: The patient appeared well nourished and normally developed. HEENT: Head exam is unremarkable. Neck is without jugular venous distension. LUNGS: Lungs are clear to auscultation and percussion. Breath sounds decreased. HEART: Rate and Rhythm are regular. First and second heart sounds normal. No murmurs, rubs or gallops. ABDOMEN: Abdominal exam reveals normal bowel sounds. Non-tender and non- distended. No evidence of peritonitis. EXTREMITITES: Trace edema. Objective - Vital Signs Vital signs: Vital Signs Temp 98.0 F 09/18/18 11:41 Pulse 61 09/18/18 11:41 Resp 16 09/18/18 11:41 BP 169/72 09/18/18 11:41 Pulse Ox 92 L 09/18/18 11:41 Intake & Output 09/17/18 09/18/18 09/18/18 18:59 06:59 18:59 Intake Total 600 440 440 Output Total 450 Balance 600 440 -10 Weight 109.6 kg Intake: Intake, IV Titration 150 140 200 Amount Sodium Chloride 0.45% 1, 100 000 ml @ 50 mls/hr IV . Q20H [facility] Rx#:[id number] Sodium Chloride 0.9% 1, 150 140 000 ml @ 70 mls/hr IV . [id number] [facility] Rx#:[id number] cefTRIAXone 1,000 mg In 100 Sodium Chloride 0.9% 50 ml @ 100 mls/hr IVPB Q24HR [facility] Rx#:[id number] Oral 450 300 240 Output: Urine 450 Other: Voiding Method Toilet Toilet Diaper Diaper # Voids 2 1 1 # Bowel Movements 1 - Labs CBC & Chem 7: 09/18/18 05:46 09/18/18 05:46 Labs: Abnormal Lab Results - Last 24 Hours (Table) 09/18/18 09/18/18 09/18/18 Range/Units 05:46 05:46 05:46 RBC 3.02 L (3.80-5.40) m/uL Hgb 10.2 L (11.4-16.0) gm/dL Hct 32.2 L (34.0-46.0) % MCV 106.4 H (80.0-100.0) fL Plt Count 93 L (150-450) k/uL PT 20.5 H (9.0-12.0) sec INR 2.1 H (<1.2) Chloride 114 H (98-107) mmol/L BUN 23 H (7-17) mg/dL Calcium 7.8 L (8.4-10.2) mg/dL Microbiology - Last 24 Hours (Table) 09/16/18 05:23 Urine Culture - Final Urine,Catheterized Escherichia coli 09/16/18 14:23 Blood Culture - Preliminary Blood No Growth after 24 hours Assessment and Plan Plan: Assessment: 1. Acute kidney injury mostly prerenal improved with IV hydration. GFR at baseline. 2. Mild hyperkalemia secondary to acute kidney injury and use of BLAIR inhibitor. Resolved. 3. UTI maintain on antibiotics. Urine culture positive for E. coli. 4. Benign hypertension. Blood pressures high today. Partially volume sensitive. 5. Lower extremity edema. Plan: Hep-Lock IV fluids. Resume Lasix 40 mg every other day. Lisinopril has also been resumed. Avoid nephrotoxins. Repeat electrolytes in the morning.
--- NOTE | 2018-09-18 13:43 | P.PN ---
Subjective Progress Note Date: 09/18/18 This is a 73-year-old female who follows regularly with Dr. Hobbs in the office. She has a known history of hypertension, hyperlipidemia, paroxysmal atrial fibrillation, dilated cardiomyopathy, who underwent a AILEEN in September 2016 which did not reveal any evidence of intracardiac thrombus, it did reveal mild to moderate MR, left atrium appear to be enlarged and left ventricular systolic function was preserved at that time following that patient did undergo cardioversion. An echocardiogram with Doppler study performed in March 2018 revealed a normal left ventricular systolic function. Patient presents to the hospital on this occasion with symptoms of weakness. According to the patient, she has had multiple falls at home. She states that she does not pass out on any of these occasions, her legs become extremely weak and cannot hold her up. According to the patient, she stands up from her chair and sometimes falls back into the chair because she is so weak. CAT scan of the brain negative, appears normal for the patient's age. Chest x-ray does not reveal any active cardiopulmonary disease. EKG on presentation here shows normal sinus rhythm with nonspecific ST-T wave changes. Blood pressure on arrival here 84/40, heart rate in the 60s, 95% on room air, temperature 99.2. Her blood pressure this morning at 7:30 is documented to be 164/70. White blood cell count 12.2 on admission 5.3 this morning. Hemoglobin 11.6 on admission, 10.6 this morning, platelet count 97. INR on admission 3.7, 2.4 this morning. Admission electrolytes, sodium 139, potassium 5.2, BUN 41 and creatinine 1.4. This morning sodium 141, potassium 4.0, BUN 29 and creatinine 0.9. Magnesium level I.5 and 1.7, total bilirubin 2.8 unconjugated bili 2.2, delta bilirubin 0.6 AST 46 and ALT 35 alk phos 97. Troponin 1.5, 0.9, 0.6. Urinalysis did reveal a UTI. At the time of my examination this morning, patient is sitting up in her chair at bedside. She denies any dizziness or lightheadedness. She did get up and ambulate briefly with the nurse this morning, states that overall she felt stronger. She was given IV fluid boluses in the emergency room. 09/18/2018 She was seen and examined this morning, overall she is feeling significantly better. Coreg was resumed yesterday, blood pressure this morning 180/70, after the Coreg for blood pressure came down to 169/72. She was also resumed today on her lisinopril, and diuretics have been resumed by nephrology. Blood cell count 4.5, hemoglobin 10.2, platelet count 93. INR today 2.1 sodium 140, potassium 4.2, BUN 23 and creatinine 0.8. Objective - Vital Signs Vital signs: Vital Signs Temp 98.0 F 09/18/18 11:41 Pulse 61 09/18/18 11:41 Resp 16 09/18/18 11:41 BP 169/72 09/18/18 11:41 Pulse Ox 92 L 09/18/18 11:41 Intake & Output 09/17/18 09/18/18 09/18/18 18:59 06:59 18:59 Intake Total 600 440 440 Output Total 450 Balance 600 440 -10 Weight 109.6 kg Intake: Intake, IV Titration 150 140 200 Amount Sodium Chloride 0.45% 1, 100 000 ml @ 50 mls/hr IV . Q20H [facility] Rx#:[id number] Sodium Chloride 0.9% 1, 150 140 000 ml @ 70 mls/hr IV . [id number] [facility] Rx#:[id number] cefTRIAXone 1,000 mg In 100 Sodium Chloride 0.9% 50 ml @ 100 mls/hr IVPB Q24HR [facility] Rx#:[id number] Oral 450 300 240 Output: Urine 450 Other: Voiding Method Toilet Toilet Diaper Diaper # Voids 2 1 1 # Bowel Movements 1 - Exam PHYSICAL EXAMINATION: GENERAL: 73-year-old female in no acute distress at the time of my examination HEENT: Head is atraumatic, normocephalic. Pupils equal, round. Sclera anicteric. Conjunctiva are clear. Mucous membranes of the mouth are moist. Neck is supple. There is no elevated jugular venous pressure. No carotid bruit is heard. HEART EXAMINATION: Heart S1 S2 1 systolic murmur is heard CHEST EXAMINATION: Lungs are clear to auscultation and precussion. No chest wall tenderness is noted on palpation or with deep breathing. ABDOMEN: Soft, obese, nontender. Bowel sounds are heard. No organomegaly noted. EXTREMITIES: 2+ peripheral pulses with 1+ evidence of peripheral edema, patient does have evidence of several ecchymotic areas on her arms and mild ecchymosis on the chest area, from her frequent falls.. NEUROLOGIC patient is awake, alert and oriented 3 . - Labs CBC & Chem 7: 09/18/18 05:46 09/18/18 05:46 Labs: Abnormal Lab Results - Last 24 Hours (Table) 09/18/18 09/18/18 09/18/18 Range/Units 05:46 05:46 05:46 RBC 3.02 L (3.80-5.40) m/uL Hgb 10.2 L (11.4-16.0) gm/dL Hct 32.2 L (34.0-46.0) % MCV 106.4 H (80.0-100.0) fL Plt Count 93 L (150-450) k/uL PT 20.5 H (9.0-12.0) sec INR 2.1 H (<1.2) Chloride 114 H (98-107) mmol/L BUN 23 H (7-17) mg/dL Calcium 7.8 L (8.4-10.2) mg/dL Microbiology - Last 24 Hours (Table) 09/16/18 05:23 Urine Culture - Final Urine,Catheterized Escherichia coli 09/16/18 14:23 Blood Culture - Preliminary Blood No Growth after 24 hours Assessment and Plan Plan: Assessment and plan #1 progressive weakness with frequent falls with no evidence of syncope. Patient denies any passing out on any of her episodes of falls. #2 hypotension, could be secondary to dehydration #3 abnormal renal function, could be secondary to dehydration. #4 positive UTI #5 hypertension history #6 hyperlipidemia #7 paroxysmal atrial fibrillation for which the patient takes Coumadin, INR 3.7 on admission, 2.4 this morning. #8 history of dilated cardiomyopathy, echocardiogram with Doppler study performed in March of last year revealed a normal left ventricular systolic function. #9 abnormal troponin, patient denies having any chest discomfort. Could be secondary to supply and demand mismatch. Plan We will continue the Coreg 3.125 mg by mouth twice a day. Patient has also been resumed on her lisinopril 20 mg daily and Lasix every other day. Continue Coumadin, INR today 2.1. DNP note has been reviewed, I agree with a documented findings and plan of care. Patient was seen and examined.
[2018-09-19 06:45] LABS: INR 1.8 (<1.2); Prothrombin Time 17.6 sec (9.0-12.0)
[2018-09-19] MEDS: PANTOPRAZOLE 40 MG TABLET PO SCH (06:54)
[2018-09-19 06:56] LABS: Anion Gap 4 mmol/L; Blood Urea Nitrogen 22 mg/dL (7-17); Calcium 8.2 mg/dL (8.4-10.2); Carbon Dioxide 22 mmol/L (22-30); Chloride 112 mmol/L (98-107); Glucose 89 mg/dL (74-99); Potassium 4.3 mmol/L (3.5-5.1); Sodium 138 mmol/L (137-145)
[2018-09-19] MEDS: CARVEDILOL 3.125 MG TAB PO SCH ×2 (06:56→16:52)
[2018-09-19] MEDS: SODIUM CHLORIDE 0.45% 1,000 ML IV SCH ×2 (06:56→09:49)
[2018-09-19 07:21] LABS: Basophils % (A) 0 %; Eosinophils % (A) 0 %; HCT 34.4 % (34.0-46.0); HGB 10.7 gm/dL (11.4-16.0); Lymphocytes # (A) 1.1 k/uL (1.0-4.8); Lymphocytes % (A) 20 %; MCH 32.8 pg (25.0-35.0); MCV 105.9 fL (80.0-100.0); Macrocytosis Moderate; Mean Platelet Volume 8.7; Monocytes # (A) 0.5 k/uL (0-1.0); Monocytes % (A) 9 %; Neutrophils # (A) 3.5 k/uL (1.3-7.7); Neutrophils % (A) 67 %; Platelet Count 107 k/uL (150-450); RBC 3.25 m/uL (3.80-5.40); WBC 5.3 k/uL (3.8-10.6)
[2018-09-19] MEDS ORDERED: FUROSEMIDE 40 MG TAB PO SCH (09:00)
[2018-09-19] MEDS: MULTIVITAMINS, THERA 1 EACH TAB PO SCH (09:49)
[2018-09-19] MEDS: ATORVASTATIN 10 MG TAB PO SCH (09:49)
[2018-09-19] MEDS: LISINOPRIL 20 MG TAB PO SCH (09:49)
[2018-09-19] MEDS: WARFARIN 2.5 MG TAB PO SCH (09:49)
[2018-09-19] MEDS: DULoxetine HCL 60 MG CAPSULE.DR PO SCH (09:49)
[2018-09-19] MEDS: OXYBUTYNIN 10 MG TAB.ER.24 PO SCH (09:50)
[2018-09-19] MEDS: AMIODARONE 100 MG TAB PO SCH (09:50)
[2018-09-19] MEDS: ASPIRIN 81 MG PO SCH (09:50)
--- NOTE | 2018-09-19 11:58 | P.PN ---
Subjective Patient is seen in follow-up for acute kidney injury which has resolved. Currently having lunch. Oral intake is good. No vomiting or diarrhea. Vital signs are stable. General: The patient appeared well nourished and normally developed. HEENT: Head exam is unremarkable. Neck is without jugular venous distension. LUNGS: Lungs are clear to auscultation and percussion. Breath sounds decreased. HEART: Rate and Rhythm are regular. First and second heart sounds normal. No murmurs, rubs or gallops. ABDOMEN: Abdominal exam reveals normal bowel sounds. Non-tender and non- distended. No evidence of peritonitis. EXTREMITITES: Trace edema. Objective - Vital Signs Vital signs: Vital Signs Temp 98.5 F 09/19/18 08:00 Pulse 71 09/19/18 10:08 Resp 15 09/19/18 10:08 BP 128/63 09/19/18 08:00 Pulse Ox 91 L 09/19/18 08:00 Intake & Output 09/18/18 09/19/18 09/19/18 18:59 06:59 18:59 Intake Total 680 240 250 Output Total 450 600 Balance 230 -360 250 Weight 109.9 kg Intake: Intake, IV Titration 200 Amount Sodium Chloride 0.45% 1, 100 000 ml @ 20 mls/hr IV . Q24H [facility] Rx#:[id number] cefTRIAXone 1,000 mg In 100 Sodium Chloride 0.9% 50 ml @ 100 mls/hr IVPB Q24HR [facility] Rx#:[id number] Oral 480 240 250 Output: Urine 450 600 Other: Voiding Method Toilet Toilet Toilet Diaper Diaper Diaper # Voids 1 1 1 # Bowel Movements 1 - Labs CBC & Chem 7: 09/19/18 05:23 09/19/18 05:23 Labs: Abnormal Lab Results - Last 24 Hours (Table) 09/19/18 09/19/18 09/19/18 Range/Units 05:23 05:23 05:23 RBC 3.25 L (3.80-5.40) m/uL Hgb 10.7 L (11.4-16.0) gm/dL MCV 105.9 H (80.0-100.0) fL Plt Count 107 L (150-450) k/uL PT 17.6 H (9.0-12.0) sec INR 1.8 H (<1.2) Chloride 112 H (98-107) mmol/L BUN 22 H (7-17) mg/dL Calcium 8.2 L (8.4-10.2) mg/dL Microbiology - Last 24 Hours (Table) 09/16/18 14:23 Blood Culture - Preliminary Blood No Growth after 48 hours 09/16/18 05:23 Urine Culture - Final Urine,Catheterized Escherichia coli Assessment and Plan Plan: Assessment: 1. Acute kidney injury mostly prerenal improved with IV hydration. GFR at baseline. 2. Mild hyperkalemia secondary to acute kidney injury and use of BLAIR inhibitor. Resolved. 3. UTI maintain on antibiotics. Urine culture positive for E. coli. 4. Benign hypertension. Controlled. Partially volume sensitive. 5. Lower extremity edema. Plan: Maintain Lasix 40 mg every other day. Lisinopril has also been resumed. Avoid nephrotoxins. Stable to be discharged from nephrology standpoint. Follow up outpatient in the next 2 weeks.
[2018-09-19 12:16] VITALS: RESP 16; TEMP 97.9
--- NOTE | 2018-09-19 12:39 | P.PN ---
Subjective Progress Note Date: 09/19/18 This is a 73-year-old female who follows regularly with Dr. Hobbs in the office. She has a known history of hypertension, hyperlipidemia, paroxysmal atrial fibrillation, dilated cardiomyopathy, who underwent a AILEEN in September 2016 which did not reveal any evidence of intracardiac thrombus, it did reveal mild to moderate MR, left atrium appear to be enlarged and left ventricular systolic function was preserved at that time following that patient did undergo cardioversion. An echocardiogram with Doppler study performed in March 2018 revealed a normal left ventricular systolic function. Patient presents to the hospital on this occasion with symptoms of weakness. According to the patient, she has had multiple falls at home. She states that she does not pass out on any of these occasions, her legs become extremely weak and cannot hold her up. According to the patient, she stands up from her chair and sometimes falls back into the chair because she is so weak. CAT scan of the brain negative, appears normal for the patient's age. Chest x-ray does not reveal any active cardiopulmonary disease. EKG on presentation here shows normal sinus rhythm with nonspecific ST-T wave changes. Blood pressure on arrival here 84/40, heart rate in the 60s, 95% on room air, temperature 99.2. Her blood pressure this morning at 7:30 is documented to be 164/70. White blood cell count 12.2 on admission 5.3 this morning. Hemoglobin 11.6 on admission, 10.6 this morning, platelet count 97. INR on admission 3.7, 2.4 this morning. Admission electrolytes, sodium 139, potassium 5.2, BUN 41 and creatinine 1.4. This morning sodium 141, potassium 4.0, BUN 29 and creatinine 0.9. Magnesium level I.5 and 1.7, total bilirubin 2.8 unconjugated bili 2.2, delta bilirubin 0.6 AST 46 and ALT 35 alk phos 97. Troponin 1.5, 0.9, 0.6. Urinalysis did reveal a UTI. At the time of my examination this morning, patient is sitting up in her chair at bedside. She denies any dizziness or lightheadedness. She did get up and ambulate briefly with the nurse this morning, states that overall she felt stronger. She was given IV fluid boluses in the emergency room. 09/18/2018 She was seen and examined this morning, overall she is feeling significantly better. Coreg was resumed yesterday, blood pressure this morning 180/70, after the Coreg for blood pressure came down to 169/72. She was also resumed today on her lisinopril, and diuretics have been resumed by nephrology. Blood cell count 4.5, hemoglobin 10.2, platelet count 93. INR today 2.1 sodium 140, potassium 4.2, BUN 23 and creatinine 0.8. 09/19/2018 Patient was seen and examined this morning, overall feeling significantly better today. Blood pressure 112/80, heart rate in the 70s, 96% on room air. White blood cell count 5.3, hemoglobin 10.7, platelet count 107. INR today 1.8 , sodium 138, potassium 4.3, BUN 22 and creatinine 0.7. Objective - Vital Signs Vital signs: Vital Signs Temp 97.9 F 09/19/18 12:14 Pulse 72 09/19/18 12:14 Resp 16 09/19/18 12:14 BP 113/80 09/19/18 12:14 Pulse Ox 96 09/19/18 12:14 Intake & Output 09/18/18 09/19/18 09/19/18 18:59 06:59 18:59 Intake Total 680 240 250 Output Total 450 600 Balance 230 -360 250 Weight 109.9 kg Intake: Intake, IV Titration 200 Amount Sodium Chloride 0.45% 1, 100 000 ml @ 20 mls/hr IV . Q24H [facility] Rx#:[id number] cefTRIAXone 1,000 mg In 100 Sodium Chloride 0.9% 50 ml @ 100 mls/hr IVPB Q24HR [facility] Rx#:[id number] Oral 480 240 250 Output: Urine 450 600 Other: Voiding Method Toilet Toilet Toilet Diaper Diaper Diaper # Voids 1 1 1 # Bowel Movements 1 - Exam PHYSICAL EXAMINATION: GENERAL: 73-year-old female in no acute distress at the time of my examination HEENT: Head is atraumatic, normocephalic. Pupils equal, round. Sclera anicteric. Conjunctiva are clear. Mucous membranes of the mouth are moist. Neck is supple. There is no elevated jugular venous pressure. No carotid bruit is heard. HEART EXAMINATION: Heart S1 S2 1 systolic murmur is heard CHEST EXAMINATION: Lungs are clear to auscultation and precussion. No chest wall tenderness is noted on palpation or with deep breathing. ABDOMEN: Soft, obese, nontender. Bowel sounds are heard. No organomegaly noted. EXTREMITIES: 2+ peripheral pulses with trace to 1+ evidence of peripheral edema , patient does have evidence of several ecchymotic areas on her arms and mild ecchymosis on the chest area, from her frequent falls.. NEUROLOGIC patient is awake, alert and oriented 3 . - Labs CBC & Chem 7: 09/19/18 05:23 09/19/18 05:23 Labs: Abnormal Lab Results - Last 24 Hours (Table) 09/19/18 09/19/18 09/19/18 Range/Units 05:23 05:23 05:23 RBC 3.25 L (3.80-5.40) m/uL Hgb 10.7 L (11.4-16.0) gm/dL MCV 105.9 H (80.0-100.0) fL Plt Count 107 L (150-450) k/uL PT 17.6 H (9.0-12.0) sec INR 1.8 H (<1.2) Chloride 112 H (98-107) mmol/L BUN 22 H (7-17) mg/dL Calcium 8.2 L (8.4-10.2) mg/dL Microbiology - Last 24 Hours (Table) 09/16/18 14:23 Blood Culture - Preliminary Blood No Growth after 48 hours 09/16/18 05:23 Urine Culture - Final Urine,Catheterized Escherichia coli Assessment and Plan Plan: Assessment and plan #1 progressive weakness with frequent falls with no evidence of syncope. Patient denies any passing out on any of her episodes of falls. #2 hypotension, could be secondary to dehydration #3 abnormal renal function, could be secondary to dehydration. #4 positive UTI #5 hypertension history #6 hyperlipidemia #7 paroxysmal atrial fibrillation for which the patient takes Coumadin, INR 3.7 on admission, 1.9 this morning. #8 history of dilated cardiomyopathy, echocardiogram with Doppler study performed in March of last year revealed a normal left ventricular systolic function. #9 abnormal troponin, patient denies having any chest discomfort. Could be secondary to supply and demand mismatch. Plan From cardiology's perspective, patient may be able to be discharged once cleared by primary, nephrology has a shamar cleared for discharge as well. We will follow-up in the office post discharge. DNP note has been reviewed, I agree with a documented findings and plan of care. Patient was seen and examined.
--- NOTE | 2018-09-19 16:23 | P.PN ---
Subjective Progress Note Date: 09/18/18 Principal diagnosis: Multiple falls, dehydration and acute kidney injury Electrolyte abnormalities Patient is a 73-year-old female with a known history ofhypertension, hyperlipidemia, paroxysmal atrial fibrillation, dilated cardiomyopathy, who underwent a AILEEN in September 2016 which did not reveal any evidence of intracardiac thrombus, it did reveal mild to moderate MR, left atrium appear to be enlarged and left ventricular systolic function was preserved at that time following that patient did undergo cardioversion. Patient was admitted to the hospital due to multiple falls and generalized weakness. CT head is negative. Chest x-ray showed no acute cardio pulmonary process EKG showed normal sinus rhythm. Troponin 1.5, 0.9, 0.6 Patient was hypotensive with blood pressures 84/ 40 mmHg on admission urine cultures is growing gram-negative bacilli. Currently patient denied any complaints of chest pain or shortness of breath. Able to sit in the chair. Denied any complaints of nausea vomiting or abdominal pain. No diarrhea. No complaints of dysuria or hematuria. Currently being continued on antibiotics in the form of ceftriaxone. Cardiology is following. Current medications reviewed. blood pressure medications were held due to hypotension. 09/18/2018 Patient is able to sit in the chair today. Tolerating oral diet. Blood pressure is much improved and was started back on home blood pressure medications. Lasix has been changed to every 48 hours. No compressive dizziness or lightheadedness today. No other acute overnight issues. Otherwise continue the current management and cardiology and nephrology is following. current medications reviewed Objective - Vital Signs Vital signs: Vital Signs Temp 98.0 F 09/18/18 11:41 Pulse 61 09/18/18 11:41 Resp 16 09/18/18 11:41 BP 169/72 09/18/18 11:41 Pulse Ox 92 L 09/18/18 11:41 Intake & Output 09/17/18 09/18/18 09/18/18 18:59 06:59 18:59 Intake Total 600 440 680 Output Total 450 Balance 600 440 230 Weight 109.6 kg Intake: Intake, IV Titration 150 140 200 Amount Sodium Chloride 0.45% 1, 100 000 ml @ 50 mls/hr IV . Q20H [facility] Rx#:[id number] Sodium Chloride 0.9% 1, 150 140 000 ml @ 70 mls/hr IV . [id number] [facility] Rx#:[id number] cefTRIAXone 1,000 mg In 100 Sodium Chloride 0.9% 50 ml @ 100 mls/hr IVPB Q24HR [facility] Rx#:[id number] Oral 450 300 480 Output: Urine 450 Other: Voiding Method Toilet Toilet Diaper Diaper # Voids 2 1 1 # Bowel Movements 1 - Exam PHYSICAL EXAMINATION: Patient is lying in the bed comfortably, no acute distress, awake alert and oriented.. HEENT: Normocephalic. Neck is supple. Pupils reactive. Nostrils clear. Oral cavity is moist. Ears reveal no drainage. Neck reveals no JVD, carotid bruits, or thyromegaly. CHEST EXAMINATION: Trachea is central. Symmetrical expansion. Lung rose clear to auscultation and percussion. CARDIAC: Normal S1, S2 with no gallops. No murmurs ABDOMEN: Soft. Bowel sounds normal. No organomegaly. No abdominal bruits. Extremities: reveal no edema. No clubbing or cyanosis Neurologically awake, alert, oriented x3 with well-coordinated movements. No focal deficits noted Skin: No rash or skin lesions. Psychiatric: Coperative. Nonsuicidal Musculoskeletal: No joint swelling or deformity. Normal range of motion. - Labs CBC & Chem 7: 09/19/18 05:23 09/19/18 05:23 Labs: Abnormal Lab Results - Last 24 Hours (Table) 09/18/18 09/18/18 09/18/18 Range/Units 05:46 05:46 05:46 RBC 3.02 L (3.80-5.40) m/uL Hgb 10.2 L (11.4-16.0) gm/dL Hct 32.2 L (34.0-46.0) % MCV 106.4 H (80.0-100.0) fL Plt Count 93 L (150-450) k/uL PT 20.5 H (9.0-12.0) sec INR 2.1 H (<1.2) Chloride 114 H (98-107) mmol/L BUN 23 H (7-17) mg/dL Calcium 7.8 L (8.4-10.2) mg/dL Microbiology - Last 24 Hours (Table) 09/16/18 05:23 Urine Culture - Final Urine,Catheterized Escherichia coli 09/16/18 14:23 Blood Culture - Preliminary Blood No Growth after 24 hours Assessment and Plan Assessment: Generalized weakness and near syncope likely due to orthostatic hypotension. dehydration and volume depletion. Hypotension. improved. BP meds restrated. hold clom=ni Gram-negative bacillary/E. coli urinary tract infection Acute kidney injury most likely prerenal improved now. Hypertension Hyperlipidemia Paroxysmal atrial fibrillation on Coumadin for anticoagulation Dilated cardiomyopathy. Last echocardiogram in March 2018 showed normal EF Elevated troponin level unlikely ACS. Lactic acidosis due to hypotension and decreased tissue perfusion. Improved. Morbid obesity BMI 36.5 Plan: Patient was given fluid boluses with improvement in blood pressure currently. We will start back on blood pressure medications as tolerated. Renal function is improved now. Cardiology and nephrology is following. Urine culture showed E. coli.. Continue the current management and further recommendations based on the clinical course. Coumadin monitoring. Prognosis is guarded with multiple medical problems and comorbid conditions. Time with Patient: Greater than 30
--- NOTE | 2018-09-19 16:29 | P.DS ---
Providers Date of admission: 09/16/18 05:50 Expected date of discharge: 09/19/18 Attending physician: Wade Mills Consults: 09/16/18 05:48 Consult Physician Routine Consulting Provider: Ada Bauman Consult Reason/Comments: abby Do you want consulting provider notified?: Yes 09/16/18 11:23 Consult Physician Routine Consulting Provider: Martín Santiago Consult Reason/Comments: elevated troponin Do you want consulting provider notified?: Yes Primary care physician: Kendal Bhatia Hospital Course: Discharge diagnosis Generalized weakness and near syncope likely due to orthostatic hypotension. dehydration and volume depletion. Hypotension. improved. BP meds restrated. hold clom=ni Gram-negative bacillary/E. coli urinary tract infection Acute kidney injury most likely prerenal improved now. Hypertension Hyperlipidemia Paroxysmal atrial fibrillation on Coumadin for anticoagulation Dilated cardiomyopathy. Last echocardiogram in March 2018 showed normal EF Elevated troponin level unlikely ACS. Lactic acidosis due to hypertension improved with IV hydration.. Hospital course Patient is a 73-year-old female with a known history ofhypertension, hyperlipidemia, paroxysmal atrial fibrillation, dilated cardiomyopathy, who underwent a AILEEN in September 2016 which did not reveal any evidence of intracardiac thrombus, it did reveal mild to moderate MR, left atrium appear to be enlarged and left ventricular systolic function was preserved at that time following that patient did undergo cardioversion. Patient was admitted to the hospital due to multiple falls and generalized weakness. CT head is negative. Chest x-ray showed no acute cardio pulmonary process EKG showed normal sinus rhythm. Troponin 1.5, 0.9, 0.6 Patient was hypotensive with blood pressures 84/ 40 mmHg on admission urine cultures is growing gram-negative bacilli. Currently patient denied any complaints of chest pain or shortness of breath. Able to sit in the chair. Denied any complaints of nausea vomiting or abdominal pain. No diarrhea. No complaints of dysuria or hematuria. Currently being continued on antibiotics in the form of ceftriaxone. Cardiology is following. Current medications reviewed. blood pressure medications were held due to hypotension. 09/18/2018 Patient is able to sit in the chair today. Tolerating oral diet. Blood pressure is much improved and was started back on home blood pressure medications. Lasix has been changed to every 48 hours. No compressive dizziness or lightheadedness today. No other acute overnight issues. Otherwise continue the current management and cardiology and nephrology is following. 09/19/2018 Patient denied any complaints of chest pain or shortness of breath. Patient was started back on Coreg, lisinopril and Lasix 40 mg every 48 hours. Blood pressure is not controlled. Renal function improved as well. Tolerating oral diet. Patient is otherwise symptomatic and is stable to be discharged. Patient will be continued on antibiotics in the form of Ceftin for 3 more days for E. coli urinary tract infection PHYSICAL EXAMINATION: Patient is lying in the bed comfortably, no acute distress, awake alert and oriented.. HEENT: Normocephalic. Neck is supple. Pupils reactive. Nostrils clear. Oral cavity is moist. Ears reveal no drainage. Neck reveals no JVD, carotid bruits, or thyromegaly. CHEST EXAMINATION: Trachea is central. Symmetrical expansion. Lung rose clear to auscultation and percussion. CARDIAC: Normal S1, S2 with no gallops. systolic murmur ABDOMEN: Soft. obese. Bowel sounds normal. No organomegaly. No abdominal bruits. Extremities: 1+ edema. No clubbing or cyanosis Neurologically awake, alert, oriented x3 with well-coordinated movements. No focal deficits noted Skin: No rash or skin lesions. Psychiatric: Coperative. Nonsuicidal Musculoskeletal: No joint swelling or deformity. Normal range of motion. Vital Signs 09/19/18 09/19/18 10:08 12:14 Temperature 97.9 F Pulse Rate [ 71 Pulse Oximetery ] Pulse Rate [ 72 Sitting Pulse Oximetery] Respiratory 15 16 Rate Blood Pressure 113/80 [Left Arm] O2 Sat by Pulse 96 Oximetry Total time taken greater than 35 minutes including 18 minutes for counseling and coordination of care. Patient Condition at Discharge: Fair Plan - Discharge Summary Discharge Rx Participant: Yes New Discharge Prescriptions: New Furosemide [Lasix] 40 mg PO Q48H #15 tab Cefuroxime Axetil [Ceftin] 500 mg PO BID 3 Days #6 tab Continue DULoxetine HCL 60 mg PO BID Aspirin 81 mg PO DAILY Potassium Chloride [Klor-Con 8] 8 meq PO DAILY Lovastatin [Mevacor] 40 mg PO DAILY Oxybutynin Chloride [Ditropan XL] 10 mg PO DAILY Carvedilol [Coreg] 3.125 mg PO BID Lisinopril [Zestril] 20 mg PO DAILY Amiodarone [Cordarone] 100 mg PO DAILY Warfarin Sodium 2.5 mg PO DAILY Acetaminophen Tab [Tylenol] 325 mg PO Q4H Discontinued Furosemide [Lasix] 40 mg PO DAILY cloNIDine HCL [Catapres] 0.1 mg PO BID Spironolactone [Aldactone] 25 mg PO DAILY Discharge Medication List DULoxetine HCL 60 mg PO BID 10/20/14 [History] Aspirin 81 mg PO DAILY 06/08/15 [History] Lovastatin [Mevacor] 40 mg PO DAILY 08/31/16 [History] Potassium Chloride [Klor-Con 8] 8 meq PO DAILY 08/31/16 [History] Carvedilol [Coreg] 3.125 mg PO BID 10/03/16 [History] Oxybutynin Chloride [Ditropan XL] 10 mg PO DAILY 10/03/16 [History] Lisinopril [Zestril] 20 mg PO DAILY 12/30/17 [History] Amiodarone [Cordarone] 100 mg PO DAILY 04/17/18 [History] Acetaminophen Tab [Tylenol] 325 mg PO Q4H 09/16/18 [History] Warfarin Sodium 2.5 mg PO DAILY 09/16/18 [History] Cefuroxime Axetil [Ceftin] 500 mg PO BID 3 Days #6 tab 09/19/18 [Rx] Furosemide [Lasix] 40 mg PO Q48H #15 tab 09/19/18 [Rx] Follow up Appointment(s)/Referral(s): [facility], [NON-STAFF] - Kendal Bhatia MD [Primary Care Provider] - 1-2 days Activity/Diet/Wound Care/Special Instructions: [facility] Discharge Disposition: TRANSFER TO SNF/ECF
[2018-09-19 17:16] VITALS: BP 147/65; PULSE 67
--- NOTE | 2018-09-20 13:55 | CDI ---
Documentation Clarification Form Date: 09/20/18 From: Nataliya Kannan Helen Agnela, Bpm Developer Hours-8:30 am & 5 pm MKorina Admit Date: 09/16/2018 5:50:00 AM Patient Name: Niesha Diana Visit Number: [id number] Discharge Date: 09/19/2018 5:29:00 PM ATTENTION: The Clinical Documentation Specialists (CDI) and [facility] Coding Staff appreciate your assistance in clarifying documentation. Please respond to the clarification below the line at the bottom and electronically sign. The CDI & [facility] Coding staff will review the response and follow-up if needed. Please note: Queries are made part of the Legal Health Record. If you have any questions, please contact the author of this message via ITS. Dr. Sri Maurice The patient presented with the following UTI with possible sepsis per H&P. History/Risk Factors: OLGA, acidosis, hyperkalemia, hyperbilirubinemia, paroxysmal A fib, hypomagnesemia, orthostaic hypotension WBC: 12.2 Neutrophils 10.3 Lactic acid: 3.4 Lactic Ac Sepsis Rflx: Yes Blood cultures: negative Total Bilirubin: 2.8 Vitals signs on admission: P-57, R-16, BP- 97/47, O2 sat - 99 NC 2 L Treatment: IV Rocephin ID Consult: none IV Bolus: yes In your professional opinion, please clarify if these findings signify one of the following conditions, whether the condition is POA, and cause, if known: Condition Sepsis ruled out Sepsis ruled in SIRS, without underlying infectious process Severe Sepsis Septic Shock Other, please specify Unable to determine SIRS Criteria (2 or more of the following may indicate SIRS): -Temperature < 96.8F (36C) or > 101.0F (38.3C) -Heart Rate > 90 bpm -Respiratory Rate > 20 breaths/min or PaCO2 < 32 mmHg -White Blood Cell Count > 12,000 or < 4,000 cells/mm3 or > 10% bands -Lactate >2.0 mmol/L (>4.0 is equivalent to septic shock) Sepsis ruled in [facility]
== END 2018-09-19 17:29 | DRG 872 ==
LOC: EC 02:29 → 3SCARD 05:50
PROVIDERS: ADMIT Hospitalist; ATTEND Hospitalist
DX: A41.9 Sepsis, unspecified organism (principal); N17.9 Acute kidney failure, unspecified; N39.0 Urinary tract infection, site not specified; I42.0 Dilated cardiomyopathy; E87.2 Acidosis; R17 Unspecified jaundice; E87.5 Hyperkalemia; I48.0 Paroxysmal atrial fibrillation; I11.0 Hypertensive heart disease with heart failure; I50.9 Heart failure, unspecified; E86.0 Dehydration; E83.42 Hypomagnesemia; E66.01 Morbid (severe) obesity due to excess calories; B96.20 Unspecified Escherichia coli [E. coli] as the cause of diseases classified elsewhere; I95.1 Orthostatic hypotension; E78.5 Hyperlipidemia, unspecified; F41.9 Anxiety disorder, unspecified; R29.6 Repeated falls; M19.90 Unspecified osteoarthritis, unspecified site; R32 Unspecified urinary incontinence; Z79.82 Long term (current) use of aspirin; Z68.39 Body mass index [BMI] 39.0-39.9, adult; Z79.01 Long term (current) use of anticoagulants; Z79.899 Other long term (current) drug therapy; Z86.73 Personal history of transient ischemic attack (TIA), and cerebral infarction without residual deficits; Z90.49 Acquired absence of other specified parts of digestive tract; Z90.710 Acquired absence of both cervix and uterus; Z86.19 Personal history of other infectious and parasitic diseases; Z98.42 Cataract extraction status, left eye; Z98.41 Cataract extraction status, right eye; Z80.9 Family history of malignant neoplasm, unspecified; Z82.49 Family history of ischemic heart disease and other diseases of the circulatory system; Z83.3 Family history of diabetes mellitus; Z81.8 Family history of other mental and behavioral disorders; W19.XXXA Unspecified fall, initial encounter
CPT/HCPCS: 36415; 70450; 71046; 80048; 80053; 81001; 82248; 82550; 82553; 83605; 83735; 84484; 85025; 85610; 85730; 87040; 87077; 87086; 87186; 93005; 96361; 96365; 96366; 99285

== ENCOUNTER 2019-01-11 20:40 | Inpatient (IN) | payer MEDICARE ==
[2019-01-11] MEDS ORDERED: ACETAMINOPHEN TAB 500 MG TAB PO STA (20:53)
--- NOTE | 2019-01-11 21:18 | XR ---
EXAMINATION TYPE: XR chest 2V DATE OF EXAM: 01/11/2019 COMPARISON: 09/16/2018 HISTORY: Short of breath TECHNIQUE: Frontal and lateral views of the chest are obtained. FINDINGS: Heart is enlarged. There is pulmonary vascular congestion. There is blunting of costophren ic angles. Thoracic aorta is atheromatous. The bony thorax appears intact. IMPRESSION: Congestive heart failure with pleural effusions. Pleural fluid is increased compared to old exam. Heart failure is new compared to old exam.
[2019-01-11] MEDS ORDERED: NITROGLYCERIN OINT 1 INCH/GM PACKET TOPICAL STA (21:25)
[2019-01-11] MEDS ORDERED: FUROSEMIDE 10 MG/ML 4 ML VIAL IV STA (21:25)
[2019-01-11 21:47] LABS: Anisocytosis Slight; Basophils % (A) 1 %; Eosinophils # (A) 0.1 k/uL (0-0.7); Eosinophils % (A) 1 %; HCT 44.3 % (34.0-46.0); HGB 13.4 gm/dL (11.4-16.0); Hypochromasia Moderate; Lymphocytes # (A) 0.5 k/uL (1.0-4.8); Lymphocytes % (A) 7 %; MCH 31.6 pg (25.0-35.0); MCHC 30.3 g/dL (31.0-37.0); MCV 104.2 fL (80.0-100.0); Macrocytosis Moderate; Mean Platelet Volume 8.1; Monocytes # (A) 0.3 k/uL (0-1.0); Monocytes % (A) 5 %; Neutrophils # (A) 5.7 k/uL (1.3-7.7); Neutrophils % (A) 86 %; RBC 4.25 m/uL (3.80-5.40); RDW 16.5 % (11.5-15.5); WBC 6.6 k/uL (3.8-10.6)
--- NOTE | 2019-01-11 21:50 | ED ---
General Adult HPI - General Source: patient, EMS Mode of arrival: EMS Limitations: no limitations <Erika Collazo - Last Filed: 01/11/19 22:52> <Adeel Parker - Last Filed: 01/13/19 08:23> - General Chief complaint: Shortness of Breath Stated complaint: PRABHU Time Seen by Provider: 01/11/19 20:46 - History of Present Illness Initial comments: 73-year-old female patient with past medical history significant for atrial fibrillation, hypertension, and heart failure presents to the emergency department today for evaluation of shortness of breath. Patient states this started a couple of days ago and has been worsening. Patient states became much worse and she was trying to do her "exercises" at home today. Patient states that breathing gets worse with any type of activity or lying flat. Denies any cough or congestion. Denies any fever or chills with this. She denies any chest pain. Denies nausea, vomiting, or abdominal pain. (Erika Collazo) - Related Data Home Medications Medication Instructions Recorded Confirmed DULoxetine HCL 60 mg PO BID 10/20/14 01/12/19 Aspirin 81 mg PO DAILY 06/08/15 01/12/19 Lovastatin [Mevacor] 40 mg PO DAILY 08/31/16 01/12/19 Carvedilol [Coreg] 3.125 mg PO BID 10/03/16 01/12/19 Oxybutynin Chloride [Ditropan XL] 10 mg PO DAILY 10/03/16 01/12/19 Acetaminophen Tab [Tylenol] 325 mg PO Q4H PRN 09/16/18 01/12/19 Amiodarone [Cordarone] 100 mg PO DAILY 01/12/19 01/12/19 Lisinopril [Zestril] 20 mg PO DAILY 01/12/19 01/12/19 Warfarin [Coumadin] 5 mg PO SUMOTUTHFR 01/12/19 01/12/19 Warfarin [Coumadin] 7.5 mg PO WESA 01/12/19 01/12/19 Allergies Allergy/AdvReac Type Severity Reaction Status Date / Time No Known Allergies Allergy Verified 09/16/18 10:38 Review of Systems ROS Other: All systems not noted in ROS Statement are negative. <Erika Collazo - Last Filed: 01/11/19 22:52> ROS Other: All systems not noted in ROS Statement are negative. <KeithAdeel - Last Filed: 01/13/19 08:23> ROS Statement: Those systems with pertinent positive or pertinent negative responses have been documented in the HPI. Past Medical History Past Medical History: Atrial Fibrillation, Heart Failure, CVA/TIA, Hyperlipidemia, Hypertension, Liver Disease, Osteoarthritis (OA) Additional Past Medical History / Comment(s): TIA, heart murmur, poor circulation in legs, swelling in lower legs, hepatitis age 14, urinary leakage/incontinence History of Any Multi-Drug Resistant Organisms: None Reported Past Surgical History: Appendectomy, Cholecystectomy, Hysterectomy, Orthopedic Surgery Additional Past Surgical History / Comment(s): Bilateral cataracts, arthroscopy both knees, D&C, jose d, keo cataracts Past Anesthesia/Blood Transfusion Reactions: No Reported Reaction, Motion Sickness Additional Past Anesthesia/Blood Transfusion Reaction / Comment(s): stated has never recieved blood Past Psychological History: No Psychological Hx Reported Smoking Status: Never smoker Past Alcohol Use History: None Reported Past Drug Use History: None Reported - Past Family History Sister(s) Family Medical History: Cancer Brother(s) Family Medical History: Cancer Mother Family Medical History: Dementia, Diabetes Mellitus Additional Family Medical History / Comment(s): age 89 Father Additional Family Medical History / Comment(s): age 70's from heart attack <ZayErika Vasquez - Last Filed: 01/11/19 22:52> General Exam Limitations: no limitations General appearance: alert, in no apparent distress, other (Physical well- developed, well-nourished adult female patient in mild respiratory distress. Vital signs upon presentation are temperature 100.7F, pulse 70, respirations 22 , blood pressure 149/107, pulse ox 88% on 4 L.) Eye exam: Present: normal appearance, PERRL, EOMI. Absent: scleral icterus, conjunctival injection, periorbital swelling ENT exam: Present: normal exam, normal oropharynx, mucous membranes moist Respiratory exam: Present: decreased breath sounds (bilaterally). Absent: normal lung sounds bilaterally, respiratory distress, wheezes, rales, rhonchi, stridor Cardiovascular Exam: Present: regular rate, normal rhythm, normal heart sounds. Absent: systolic murmur, diastolic murmur, rubs, gallop, clicks GI/Abdominal exam: Present: soft, normal bowel sounds. Absent: distended, tenderness, guarding, rebound, rigid Neurological exam: Present: alert, oriented X3, CN II-XII intact Psychiatric exam: Present: normal affect, normal mood Skin exam: Present: warm, dry, intact, normal color. Absent: rash <Erika Collazo - Last Filed: 01/11/19 22:52> Course Vital Signs 01/11/19 01/11/19 01/11/19 20:42 21:36 21:45 Temperature 100.7 F H Pulse Rate 70 70 Respiratory 22 24 24 Rate Blood Pressure 149/107 113/62 O2 Sat by Pulse 88 L 91 L Oximetry 01/11/19 01/11/19 01/11/19 22:37 23:00 23:41 Temperature 99.6 F Pulse Rate 81 83 81 Respiratory 20 20 18 Rate Blood Pressure 102/48 95/42 81/39 O2 Sat by Pulse 95 93 L 92 L Oximetry 01/12/19 01/12/19 00:06 00:48 Temperature 99 F Pulse Rate 80 73 Respiratory 18 20 Rate Blood Pressure 86/46 89/65 O2 Sat by Pulse 93 L 95 Oximetry EKG Findings - EKG Comments: EKG Findings:: EKG obtained at 2122 shows atrial fibrillation with a ventricular rate of 76, QRS duration 88, QT 378, QTC 425. No evidence of ST elevation or depression. <Erika Collazo - Last Filed: 01/11/19 22:52> Medical Decision Making - Lab Data Result diagrams: 01/11/19 21:31 01/11/19 21:31 - Radiology Data Radiology results: report reviewed, image reviewed <Erika Collazo - Last Filed: 01/11/19 22:52> - Lab Data Result diagrams: 01/13/19 05:26 01/13/19 05:26 <Adeel Parker - Last Filed: 01/13/19 08:23> - Medical Decision Making 73-year-old female patient presents to the emergency department today for evaluation of shortness of breath. Physical examination did reveal diminished breath sounds bilaterally. Patient did exhibit tachypnea and accessory muscle use. Chest x-ray did reveal evidence for pleural effusions bilaterally and pulmonary vascular congestion. Patient was given IV Lasix, nitro ointment was applied, she was started on BiPAP. Labs reviewed and did reveal a BNP of 1094. Troponin was 0.033. EKG showed A. fib with a controlled ventricular rate. She is therapeutic on her INR. Patient will be admitted to the hospital for congestive heart failure, we'll continue IV Lasix. Patient was febrile upon arrival to lactic acid of 2.2 so we will start antibiotics for pneumonia. Did discuss findings, results, plan with the patient, she is agreeable. (Erika Collazo) I saw this patient in conjunction with the physician nurse practitioner physicians assistant. I performed independent history and physical exam. Agree with case management. (Adeel Parker) - Lab Data Lab Results 01/11/19 01/11/19 01/11/19 Range/Units 21:31 21:31 21:31 WBC 6.6 (3.8-10.6) k/uL RBC 4.25 (3.80-5.40) m/uL Hgb 13.4 (11.4-16.0) gm/dL Hct 44.3 (34.0-46.0) % MCV 104.2 H (80.0-100.0) fL MCH 31.6 (25.0-35.0) pg MCHC 30.3 L (31.0-37.0) g/dL RDW 16.5 H (11.5-15.5) % Plt Count 94 L (150-450) k/uL Neutrophils % 86 % Lymphocytes % 7 % Monocytes % 5 % Eosinophils % 1 % Basophils % 1 % Neutrophils # 5.7 (1.3-7.7) k/uL Lymphocytes # 0.5 L (1.0-4.8) k/uL Monocytes # 0.3 (0-1.0) k/uL Eosinophils # 0.1 (0-0.7) k/uL Basophils # 0.0 (0-0.2) k/uL Manual Slide Review Performed Hypochromasia Moderate Anisocytosis Slight Macrocytosis Moderate PT 26.6 H (9.0-12.0) sec INR 2.8 H (<1.2) APTT 29.7 (22.0-30.0) sec Sodium 141 (137-145) mmol/L Potassium 5.3 H (3.5-5.1) mmol/L Chloride 112 H (98-107) mmol/L Carbon Dioxide 26 (22-30) mmol/L Anion Gap 3 mmol/L BUN 20 H (7-17) mg/dL Creatinine 0.77 (0.52-1.04) mg/dL Est GFR (CKD-EPI)AfAm 88 (>60 ml/min/1.73 sqM) Est GFR (CKD-EPI)NonAf 76 (>60 ml/min/1.73 sqM) Glucose 61 L (74-99) mg/dL Lactic Ac Sepsis Rflx Plasma Lactic Acid Karson (0.7-2.0) mmol/L Calcium 8.3 L (8.4-10.2) mg/dL Total Bilirubin 2.3 H (0.2-1.3) mg/dL AST 83 H (14-36) U/L ALT 24 (9-52) U/L Alkaline Phosphatase 169 H (38-126) U/L Troponin I (0.000-0.034) ng/mL NT-Pro-B Natriuret Pep pg/mL Total Protein 8.2 (6.3-8.2) g/dL Albumin 2.7 L (3.5-5.0) g/dL 01/11/19 01/11/19 01/11/19 Range/Units 21:31 21:31 21:31 WBC (3.8-10.6) k/uL RBC (3.80-5.40) m/uL Hgb (11.4-16.0) gm/dL Hct (34.0-46.0) % MCV (80.0-100.0) fL MCH (25.0-35.0) pg MCHC (31.0-37.0) g/dL RDW (11.5-15.5) % Plt Count (150-450) k/uL Neutrophils % % Lymphocytes % % Monocytes % % Eosinophils % % Basophils % % Neutrophils # (1.3-7.7) k/uL Lymphocytes # (1.0-4.8) k/uL Monocytes # (0-1.0) k/uL Eosinophils # (0-0.7) k/uL Basophils # (0-0.2) k/uL Manual Slide Review Hypochromasia Anisocytosis Macrocytosis PT (9.0-12.0) sec INR (<1.2) APTT (22.0-30.0) sec Sodium (137-145) mmol/L Potassium (3.5-5.1) mmol/L Chloride (98-107) mmol/L Carbon Dioxide (22-30) mmol/L Anion Gap mmol/L BUN (7-17) mg/dL Creatinine (0.52-1.04) mg/dL Est GFR (CKD-EPI)AfAm (>60 ml/min/1.73 sqM) Est GFR (CKD-EPI)NonAf (>60 ml/min/1.73 sqM) Glucose (74-99) mg/dL Lactic Ac Sepsis Rflx Plasma Lactic Acid Karson 2.2 H* (0.7-2.0) mmol/L Calcium (8.4-10.2) mg/dL Total Bilirubin (0.2-1.3) mg/dL AST (14-36) U/L ALT (9-52) U/L Alkaline Phosphatase (38-126) U/L Troponin I 0.033 (0.000-0.034) ng/mL NT-Pro-B Natriuret Pep 1060 pg/mL Total Protein (6.3-8.2) g/dL Albumin (3.5-5.0) g/dL 01/11/19 Range/Units 22:01 WBC (3.8-10.6) k/uL RBC (3.80-5.40) m/uL Hgb (11.4-16.0) gm/dL Hct (34.0-46.0) % MCV (80.0-100.0) fL MCH (25.0-35.0) pg MCHC (31.0-37.0) g/dL RDW (11.5-15.5) % Plt Count (150-450) k/uL Neutrophils % % Lymphocytes % % Monocytes % % Eosinophils % % Basophils % % Neutrophils # (1.3-7.7) k/uL Lymphocytes # (1.0-4.8) k/uL Monocytes # (0-1.0) k/uL Eosinophils # (0-0.7) k/uL Basophils # (0-0.2) k/uL Manual Slide Review Hypochromasia Anisocytosis Macrocytosis PT (9.0-12.0) sec INR (<1.2) APTT (22.0-30.0) sec Sodium (137-145) mmol/L Potassium (3.5-5.1) mmol/L Chloride (98-107) mmol/L Carbon Dioxide (22-30) mmol/L Anion Gap mmol/L BUN (7-17) mg/dL Creatinine (0.52-1.04) mg/dL Est GFR (CKD-EPI)AfAm (>60 ml/min/1.73 sqM) Est GFR (CKD-EPI)NonAf (>60 ml/min/1.73 sqM) Glucose (74-99) mg/dL Lactic Ac Sepsis Rflx Y Plasma Lactic Acid Karson (0.7-2.0) mmol/L Calcium (8.4-10.2) mg/dL Total Bilirubin (0.2-1.3) mg/dL AST (14-36) U/L ALT (9-52) U/L Alkaline Phosphatase (38-126) U/L Troponin I (0.000-0.034) ng/mL NT-Pro-B Natriuret Pep pg/mL Total Protein (6.3-8.2) g/dL Albumin (3.5-5.0) g/dL - Radiology Data Two-view x-ray of the chest is obtained. Report was reviewed in its entirety. Impression by Dr. Vasquez shows congestive heart failure with pleural effusions. Pleural fluid is increased compared to old exam. Heart failure is new compared to old exam. (Erika Collazo) Critical Care Time Critical Care Time: Yes Total Critical Care Time: 30 (Shortness of breath, hypoxic respiratory failure, application of BiPap. Reviewing labs, xrays, EKG. Re-evaluation and physical exam. Discussing case with attending physician. ) <Erika Collazo - Last Filed: 01/11/19 22:52> Disposition Decision to Admit Reason: Admit from EC Decision Date: 01/11/19 Decision Time: 23:05 <Erika Collazo - Last Filed: 01/11/19 22:52> <Adeel Parker - Last Filed: 01/13/19 08:23> Clinical Impression: Congestive heart failure, Bilateral pleural effusion, Pneumonia Disposition: ADMITTED IP TO THIS [facility] Condition: Serious
[2019-01-11 21:58] LABS: INR 2.8 (<1.2); Partial Thromboplastin Time 29.7 sec (22.0-30.0); Prothrombin Time 26.6 sec (9.0-12.0)
[2019-01-11 22:00] LABS: Albumin 2.7 g/dL (3.5-5.0); Calcium 8.3 mg/dL (8.4-10.2); Total Bilirubin 2.3 mg/dL (0.2-1.3); Total Protein 8.2 g/dL (6.3-8.2)
[2019-01-11 22:01] LABS: Potassium 5.3 mmol/L (3.5-5.1)
[2019-01-11 22:47] LABS: Platelet Count 94 k/uL (150-450)
[2019-01-11] MEDS ORDERED: AZITHROMYCIN 500 MG in SODIUM CHLORIDE 0.9% 250 ML IVPB STA (22:59)
[2019-01-11] MEDS ORDERED: cefTRIAXone IN SWFI 1,000 MG/10 ML SYRINGE IVP STA (23:03)
[2019-01-11] MEDS ORDERED: FUROSEMIDE 10 MG/ML 4 ML VIAL IV SCH (23:15)
[2019-01-12 00:04] LABS: Appearance,Urine Cloudy (Clear); Bacteria,Urine Many /hpf; Bilirubin,Urine Negative (Negative); Blood,Urine Moderate (Negative); Color,Urine Light Brown; Glucose,Urine (UA) Negative (Negative); Hyaline Casts,Urine 11 /lpf (0-2); Ketones,Urine Negative (Negative); Leukocyte Esterase,Urine Negative (Negative); Mucus,Urine Rare /hpf; Nitrite,Urine Positive (Negative); Protein,Urine Trace (Negative); RBC,Urine 16 /hpf (0-5); Specific Gravity,Urine 1.012 (1.001-1.035); Urobilinogen,Urine <2.0 mg/dL (<2.0); WBC,Urine 1 /hpf (0-5)
[2019-01-12 00:15] LABS: Glucose,Whole Blood 72 mg/dL (75-99)
[2019-01-12] MEDS ORDERED: SODIUM CHLORIDE 0.9% 500 ML 250 ML IV ONE ×2 (00:30)
[2019-01-12 01:20] LABS: Glucose,Whole Blood 58 mg/dL (75-99)
[2019-01-12 01:47] LABS: Glucose,Whole Blood 63 mg/dL (75-99)
[2019-01-12 01:58] LABS: Glucose,Whole Blood 93 mg/dL (75-99)
[2019-01-12] MEDS ORDERED: SODIUM CHLORIDE 0.9% 500 ML 500 ML IV ONE ×2 (02:00→02:42)
--- NOTE | 2019-01-12 03:06 | XR ---
EXAM: XR Chest, 1 View CLINICAL HISTORY: ITS.REASON XR Reason: heart failure TECHNIQUE: Frontal view of the chest. COMPARISON: 01/11/19 x-ray IMPRESSION: Cardiomegaly. Left lower lobe consolidation, likely aspiration versus atelectasis. Possible left pleural effusion.
[2019-01-12 03:17] LABS: Glucose,Whole Blood 122 mg/dL (75-99)
[2019-01-12 03:33] LABS: Anisocytosis Slight; HCT 27.4 % (34.0-46.0); Hypochromasia Marked; MCH 32.1 pg (25.0-35.0); MCHC 30.7 g/dL (31.0-37.0); MCV 104.3 fL (80.0-100.0); Macrocytosis Moderate; Platelet Count 110 k/uL (150-450); RBC 2.62 m/uL (3.80-5.40); RDW 17.3 % (11.5-15.5); WBC 12.2 k/uL (3.8-10.6)
[2019-01-12 03:34] LABS: HGB 8.4 gm/dL (11.4-16.0)
[2019-01-12 03:39] LABS: Albumin 1.9 g/dL (3.5-5.0); Calcium 7.8 mg/dL (8.4-10.2); Potassium 4.7 mmol/L (3.5-5.1); Total Bilirubin 1.9 mg/dL (0.2-1.3); Total Protein 6.1 g/dL (6.3-8.2)
[2019-01-12] MEDS: NOREPINEPHRINE 4 MG in SODIUM CHLORIDE 0.9% 250 ML IV SCH ×3 (04:05→22:59)
[2019-01-12 04:14] LABS: Band Neutrophils % 30 %; Lymphocytes # (M) 0.61 k/uL (1.0-4.8); Monocytes # (M) 0.61 k/uL (0-1.0); Neutrophils % (M) 60 %; Nucleated Red Blood Cells 0 /100 WBC (0-0); Total Cells Counted 200
[2019-01-12 04:15] LABS: Toxic Granulation Present
[2019-01-12 04:17] LABS: Anisocytosis Slight; HCT 28.3 % (34.0-46.0); HGB 8.4 gm/dL (11.4-16.0); Hypochromasia Marked; MCH 31.4 pg (25.0-35.0); MCHC 29.8 g/dL (31.0-37.0); MCV 105.6 fL (80.0-100.0); Macrocytosis Marked; Mean Platelet Volume 7.5; Platelet Count 112 k/uL (150-450); RBC 2.68 m/uL (3.80-5.40); WBC 13.3 k/uL (3.8-10.6)
[2019-01-12] MEDS: FUROSEMIDE 10 MG/ML 4 ML VIAL IV SCH ×2 (05:08→18:24)
[2019-01-12 07:36] LABS: Anisocytosis Slight; Hypochromasia Marked; MCH 31.3 pg (25.0-35.0); MCHC 29.2 g/dL (31.0-37.0); MCV 107.2 fL (80.0-100.0); Macrocytosis Marked; Mean Platelet Volume 7.8; Platelet Count 117 k/uL (150-450); RBC 2.89 m/uL (3.80-5.40); RDW 17.1 % (11.5-15.5); WBC 13.9 k/uL (3.8-10.6)
[2019-01-12 08:04] LABS: Glucose,Whole Blood 93 mg/dL (75-99)
[2019-01-12] MEDS: AMIODARONE 100 MG TAB PO SCH (08:19)
[2019-01-12] MEDS: AZITHROMYCIN 500 MG in SODIUM CHLORIDE 0.9% 250 ML IVPB SCH (08:23)
--- NOTE | 2019-01-12 09:52 | CONS ---
CONSULTATION Mrs. Diana is a 73-year-old female who presented through the emergency room with symptoms of progressive dyspnea. I am not able to obtain an accurate history from the patient. She is awake, alert, but confused. She had a prior history of cardiomyopathy. Subsequently underwent a AILEEN guided cardioversion in [address] Buchanan and at that time her AILEEN showed a preserved systolic function. She apparently has been having progressive dyspnea and in the emergency room she was felt to have a congestive heart failure, although her lactic acid was quite elevated. There is question of an infiltrate on the chest x-ray. The patient has chronic bilateral ulceration with chronic edema and chronic skin changes. She has been followed by Dr. Juan in the past regarding the wound clinic. The patient during her last hospitalization as well as on this admission. She appears to be in sinus mechanism. She denies any chest pain. She denies any palpitation. She denies any syncope. Her coronary risk factors are positive for history of hypertension. She is nondiabetic. She is a nonsmoker. She has hyperlipidemia. MEDICATION: Her medications at home include amiodarone 100 mg daily, aspirin 81 mg daily, Coreg 3.125 mg twice a day, duloxetine, Lasix 40 mg q48 hours, Zestril 20 mg daily, lovastatin 40 mg daily, Ditropan, potassium, Coumadin. REVIEW OF SYSTEMS: Respiratory system: Although limited because the patient has severe confusion, she denies any change in her breathing. She denies any are any cough or fever. GI system: She denies any recent nausea or vomiting. system: No dysuria or hematuria. Nervous system: No history of stroke or seizure. PHYSICAL EXAMINATION: She is a 73-year-old female, alert and confused in no apparent distress. Blood pressure 112/40 with a heart rate in 60s. HEAD: Normocephalic. Eyes: Sclerae anicteric. NECK: No bruit noted with transmitted murmur. LUNGS with decreased breath sounds in the left base. HEART: Irregular rate and rhythm S1, S2. No S3 with systolic ejection murmur 3/6 heard at the base radiating to the neck and a holosystolic murmur in the apex. ABDOMEN: Soft, nontender. Positive bowel sounds. No organomegaly. EXTREMITIES: Chronic skin changes with chronic edema and ulceration noted. She had an echocardiogram obtained in March of 2018 that revealed a preserved systolic function with mild mitral regurgitation and no significant aortic stenosis. LAB DATA: Lab data revealed a white blood cell of 6.6, hemoglobin of 13.4. INR of 2.8, potassium 5.3, BUN and creatinine 20 and 0.77. Her plasma lactic acid on presentation was 2.2. Her troponin 0.033 with an NT proBNP of 1060. Subsequently her hemoglobin is down to 8.4. Her plasma lactic acid is 3.8. Her troponin 0.143. Albumin is 1.9. Her BUN and creatinine 21 and 1.03. Her EKG shows sinus mechanism with PACs and nonspecific ST-T wave changes with poor R wave progression. Her chest x-ray chief revealed left lower lobe consolidation. IMPRESSION: 1. Symptoms of dyspnea with possible pneumonia with elevated lactic acid. 2. History of paroxysmal atrial fibrillation status post cardioversion remaining in sinus mechanism. 3. Anemia, worse than most recent lab data. The patient denies any active bleeding, but she has been on Coumadin. 4. No clear evidence of congestive heart failure, although the patient had a prior history of cardiomyopathy, but following cardioversion, her LV systolic function was stable. 5. Aortic valve murmur on the echocardiogram in March 2018. There is no evidence of significant aortic stenosis. 6. History of hypertension. 7. Hyperlipidemia. RECOMMENDATION: From the cardiac standpoint I will obtain an echocardiogram with Doppler. I will follow her renal function. I will re-initiate the treatment with amiodarone and obtain a TSH evaluation. The etiology of her anemia is unclear and will require further workup. In August of this year, her hemoglobin was in the 10 range. Depending on the results of her testing, further recommendations will be made. Thank you for this consult. We will follow with you. MMODL / IJN: [id number] /
--- NOTE | 2019-01-12 10:03 | P.CNPUL ---
History of Present Illness Consult date: 01/12/19 Requesting physician: Julissa Cardona Reason for consult: dyspnea, abnormal CXR/CT, other (Critical care management) Chief complaint: Shortness of breath, dyspnea on exertion History of present illness: This is a very pleasant 73-year-old female patient who follows with Dr. Bhatia as her primary care physician. She has a history of atrial fibrillation anticoagulated with warfarin, hypertension, congestive heart failure, hyperlipidemia. No previous pulmonary issues. Lifelong nonsmoker. She presented here to the emergency room last evening with complaints of increasing shortness of breath, dyspnea on exertion, worsening shortness of breath when lying flat. Denies any fever, chills, night sweats. No cough or congestion. Chest x-ray revealed evidence of congestive heart failure with pleural effusions. Pulmonary blood culture positive for gram-negative bacilli. Her analysis with moderate blood, positive nitrites and many bacteria. Urine culture pending. Peak lactic acid 3.8. White count 13.3. Hemoglobin 8.4. Platelet count 112,000. She was initially admitted to the selective care unit. She was found to be hypotensive and subsequently transferred here to the intensi ve care unit. She is seen today in consultation in the ICU. She is on norepinephrine at 8 mcg/m. 0.9 normal saline at 20 ML's per hour. She is on 3 L/m per nasal cannula maintaining O2 saturations in the 90s. She's been initiated on ceftriaxone and azithromycin. Recently she is awake and alert in no acute distress. She denies any chest pain, palpitations lightheadedness or dizziness. No worsening shortness of breath. Currently in a positive balance. Initiated on IV Lasix. Small troponin leak at 0.143. Echocardiogram is pending. Previous echocardiogram in 2018 revealed a preserved left ventricular systolic function with ejection fraction 55-60%. There is a positive murmur. Review of Systems Constitutional: Reports fatigue, Reports lethargy, Reports malaise Eyes: denies blurred vision, denies decreased vision Ears: deny: decreased hearing Ears, nose, mouth and throat: Denies headache, Denies sore throat Cardiovascular: Reports dyspnea on exertion, Reports irregular heart beat, Reports shortness of breath Respiratory: Reports dyspnea Gastrointestinal: Denies abdominal pain, Denies diarrhea, Denies nausea, Denies vomiting Genitourinary: Denies dysuria, Denies hematuria Musculoskeletal: Denies myalgias Musculoskeletal: bilateral: ankle swelling, foot swelling Integumentary: Denies pruritus, Denies rash Neurological: Denies numbness, Denies weakness Psychiatric: Denies anxiety, Denies depression Endocrine: Denies fatigue, Denies weight change Hematologic/Lymphatic: Reports as per HPI Allergic/Immunologic: Reports as per HPI Past Medical History Past Medical History: Atrial Fibrillation, Heart Failure, CVA/TIA, Hyperlipidemia, Hypertension, Liver Disease, Osteoarthritis (OA) Additional Past Medical History / Comment(s): TIA, heart murmur, poor circulation in legs, swelling in lower legs, hepatitis age 14, urinary leakage/incontinence History of Any Multi-Drug Resistant Organisms: None Reported Past Surgical History: Appendectomy, Cholecystectomy, Hysterectomy, Orthopedic Surgery Additional Past Surgical History / Comment(s): Bilateral cataracts, arthroscopy both knees, D&C, jose d, keo cataracts Past Anesthesia/Blood Transfusion Reactions: No Reported Reaction, Motion Sickness Additional Past Anesthesia/Blood Transfusion Reaction / Comment(s): stated has never recieved blood Past Psychological History: No Psychological Hx Reported Smoking Status: Never smoker Past Alcohol Use History: None Reported Past Drug Use History: None Reported - Past Family History Sister(s) Family Medical History: Cancer Brother(s) Family Medical History: Cancer Mother Family Medical History: Dementia, Diabetes Mellitus Additional Family Medical History / Comment(s): age 89 Father Additional Family Medical History / Comment(s): age 70's from heart attack Medications and Allergies Home Medications Medication Instructions Recorded Confirmed Type DULoxetine HCL 60 mg PO BID 10/20/14 09/17/18 History Aspirin 81 mg PO DAILY 06/08/15 09/17/18 History Lovastatin [Mevacor] 40 mg PO DAILY 08/31/16 09/17/18 History Potassium Chloride [Klor-Con 8] 8 meq PO DAILY 08/31/16 09/17/18 History Carvedilol [Coreg] 3.125 mg PO BID 10/03/16 09/17/18 History Oxybutynin Chloride [Ditropan XL] 10 mg PO DAILY 10/03/16 09/17/18 History Lisinopril [Zestril] 20 mg PO DAILY 12/30/17 09/17/18 History Amiodarone [Cordarone] 100 mg PO DAILY 04/17/18 09/17/18 History Acetaminophen Tab [Tylenol] 325 mg PO Q4H 09/16/18 09/17/18 History Warfarin Sodium 2.5 mg PO DAILY 09/16/18 09/17/18 History Cefuroxime Axetil [Ceftin] 500 mg PO BID 3 Days #6 tab 09/19/18 Rx Furosemide [Lasix] 40 mg PO Q48H #15 tab 09/19/18 Rx Allergies Allergy/AdvReac Type Severity Reaction Status Date / Time No Known Allergies Allergy Verified 09/16/18 10:38 Physical Exam Vitals: Vital Signs Temp Pulse Pulse Resp BP BP BP 01/12/19 09:00 61 15 111/45 01/12/19 08:45 62 15 114/48 01/12/19 08:30 62 15 117/49 01/12/19 08:15 63 16 110/46 01/12/19 08:03 01/12/19 08:00 98.2 F 61 14 117/51 01/12/19 07:45 63 15 112/50 01/12/19 07:30 61 21 112/48 01/12/19 07:15 61 17 98/45 01/12/19 07:00 62 17 112/44 01/12/19 06:50 62 16 109/45 01/12/19 06:40 62 17 95/43 01/12/19 06:30 62 16 89/50 01/12/19 06:20 62 16 106/51 01/12/19 06:10 62 17 105/52 01/12/19 06:00 60 19 110/62 01/12/19 05:50 63 14 113/60 01/12/19 05:40 60 17 101/73 01/12/19 05:30 63 15 110/59 01/12/19 05:21 62 21 103/53 01/12/19 05:10 60 16 104/48 01/12/19 05:01 63 24 112/52 01/12/19 04:50 60 21 107/50 01/12/19 04:40 57 L 15 119/51 01/12/19 04:30 58 L 16 110/58 01/12/19 04:20 59 L 15 107/52 01/12/19 04:10 60 15 91/50 01/12/19 04:08 98.0 F 59 L 22 83/38 0518/19 04:00 66 0518/ 02:30 98.4 F 66 18 63/42 60/43 0518/19 02:05 66 20 01/12/ 02:00 98.4 F 65 18 66/40 65/42 0518/19 01:20 98.7 F 66 18 70/45 0518/ 00:48 99 F 73 20 89/65 18/ 00:06 80 18 86/46 0517/ 23:41 81 18 81/39 0517/ 23:00 99.6 F 83 20 95/42 17/ 22:37 81 20 102/48 01/11/ 21:45 24 01/11/19 21:36 70 24 113/62 01/11/ 20:42 100.7 F H 70 22 149/107 Pulse Ox 01/12/19 09:00 96 01/12/19 08:45 97 01/12/19 08:30 96 01/12/19 08:15 95 01/12/19 08:03 95 01/12/19 08:00 97 01/12/19 07:45 96 01/12/19 07:30 94 L 01/12/19 07:15 94 L 01/12/19 07:00 95 01/12/19 06:50 94 L 01/12/19 06:40 95 01/12/19 06:30 94 L 01/12/19 06:20 95 01/12/19 06:10 95 01/12/19 06:00 94 L 01/12/19 05:50 92 L 01/12/19 05:40 92 L 01/12/19 05:30 93 L 01/12/19 05:21 93 L 01/12/19 05:10 93 L 01/12/19 05:01 94 L 01/12/19 04:50 96 01/12/19 04:40 95 18 04:30 94 L 18/ 04:20 95 01/12/19 04:10 95 01/12/19 04:08 94 L 01/12/19 04:00 01/12/19 02:30 94 L 01/12/19 02:05 01/12/19 02:00 95 01/12/19 01:20 97 01/12/19 00:48 95 01/12/19 00:06 93 L 01/11/19 23:41 92 L 01/11/19 23:00 93 L 01/11/19 22:37 95 01/11/19 21:45 01/11/19 21:36 91 L 01/11/19 20:42 88 L Intake and Output 01/11/19 01/12/19 01/12/19 22:59 06:59 14:59 Intake Total 1497.263 210 Output Total 680 70 Balance 817.263 140 Intake: IV 60 210 0.9 @ 20 60 60 Azithromycin 500 mg In 100 Sodium Chloride 0.9% 250 ml @ 250 mls/hr IVPB DAILY [facility] Rx#:[id number] cefTRIAXone 1 gm In 50 Sodium Chloride 0.9% 50 ml @ 100 mls/hr IVPB Q24HR [facility] Rx#:[id number] Intake, IV Titration 1037.263 Amount Norepinephrine 4 mg In 37.263 Sodium Chloride 0.9% 250 ml @ 0.05 MCG/KG/MIN 14. 69 mls/hr IV .[id number] [facility] Rx#:[id number] Sodium Chloride 0.9% 500 500 ml 500 ml @ 999 mls/hr IV .Q31M ONE Rx#:[id number] Sodium Chloride 0.9% 500 500 ml 500 ml @ 999 mls/hr IV .Q31M ONE Rx#:[id number] Oral 400 Output: Urine 680 70 Uretheral (Ruiz) 300 Other: Voiding Method Incontinent Indwelling Catheter Weight 77.111 kg 115.2 kg GENERAL EXAM: Alert, comfortable in no apparent distress. On 3 L nasal cannula. HEAD: Normocephalic. EYES: Normal reaction of pupils, equal size. NOSE: Clear with pink turbinates. THROAT: No erythema or exudates. NECK: No masses, no JVD. CHEST: No chest wall deformity. LUNGS: Equal air entry with crackles in the bilateral posterior bases. CVS: S1 and S2 normal with an audible murmur,irregular rhythm. ABDOMEN: No hepatosplenomegaly, normal bowel sounds, no guarding or rigidity. SPINE: No scoliosis or deformity SKIN: No rashes CENTRAL NERVOUS SYSTEM: Alert and oriented 3. No focal deficits, tone is normal in all 4 extremities. EXTREMITIES: There is no peripheral edema. No clubbing, no cyanosis. Peripheral pulses are intact. Results - Laboratory Findings CBC and BMP: 01/12/19 06:32 01/12/19 03:17 PT/INR, D-dimer PT 26.6 sec (9.0-12.0) H 01/11/19 21:31 INR 2.8 (<1.2) H 01/11/19 21:31 Abnormal lab findings: Abnormal Labs 01/11/19 01/11/19 01/11/19 21:31 21:31 21:31 WBC RBC Hgb Hct MCV 104.2 H MCHC 30.3 L RDW 16.5 H Plt Count 94 L Neutrophils # (Manual) Lymphocytes # 0.5 L Lymphocytes # (Manual) Macrocytosis PT 26.6 H INR 2.8 H Potassium 5.3 H Chloride 112 H BUN 20 H Glucose 61 L POC Glucose (mg/dL) Plasma Lactic Acid Karson Calcium 8.3 L Total Bilirubin 2.3 H AST 83 H Alkaline Phosphatase 169 H Troponin I Total Protein Albumin 2.7 L Urine Appearance Urine Protein Urine Blood Urine Nitrite Urine RBC Urine Bacteria Hyaline Casts Urine Mucus 01/11/19 01/11/19 01/12/19 21:31 23:48 00:12 WBC RBC Hgb Hct MCV MCHC RDW Plt Count Neutrophils # (Manual) Lymphocytes # Lymphocytes # (Manual) Macrocytosis PT INR Potassium Chloride BUN Glucose POC Glucose (mg/dL) 72 L Plasma Lactic Acid Karson 2.2 H* Calcium Total Bilirubin AST Alkaline Phosphatase Troponin I Total Protein Albumin Urine Appearance Cloudy H Urine Protein Trace H Urine Blood Moderate H Urine Nitrite Positive H Urine RBC 16 H Urine Bacteria Many H Hyaline Casts 11 H Urine Mucus Rare H 01/12/19 01/12/19 01/12/19 00:50 01:18 01:35 WBC RBC Hgb Hct MCV MCHC RDW Plt Count Neutrophils # (Manual) Lymphocytes # Lymphocytes # (Manual) Macrocytosis PT INR Potassium Chloride BUN Glucose POC Glucose (mg/dL) 58 L 63 L Plasma Lactic Acid Karson 2.4 H* Calcium Total Bilirubin AST Alkaline Phosphatase Troponin I Total Protein Albumin Urine Appearance Urine Protein Urine Blood Urine Nitrite Urine RBC Urine Bacteria Hyaline Casts Urine Mucus 01/12/19 01/12/19 01/12/19 03:14 03:17 03:17 WBC 12.2 H RBC 2.62 L Hgb 8.4 L D Hct 27.4 L MCV 104.3 H MCHC 30.7 L RDW 17.3 H Plt Count 110 L Neutrophils # (Manual) 10.90 H Lymphocytes # Lymphocytes # (Manual) 0.61 L Macrocytosis PT INR Potassium Chloride BUN Glucose POC Glucose (mg/dL) 122 H Plasma Lactic Acid Karson Calcium Total Bilirubin AST Alkaline Phosphatase Troponin I 0.143 H* Total Protein Albumin Urine Appearance Urine Protein Urine Blood Urine Nitrite Urine RBC Urine Bacteria Hyaline Casts Urine Mucus 01/12/19 01/12/19 01/12/19 03:17 03:17 04:06 WBC 13.3 H RBC 2.68 L Hgb 8.4 L Hct 28.3 L MCV 105.6 H MCHC 29.8 L RDW 17.0 H Plt Count 112 L Neutrophils # (Manual) Lymphocytes # Lymphocytes # (Manual) Macrocytosis Marked A PT INR Potassium Chloride 113 H BUN 21 H Glucose POC Glucose (mg/dL) Plasma Lactic Acid Karson 3.8 H* Calcium 7.8 L Total Bilirubin 1.9 H AST 60 H Alkaline Phosphatase Troponin I Total Protein 6.1 L Albumin 1.9 L Urine Appearance Urine Protein Urine Blood Urine Nitrite Urine RBC Urine Bacteria Hyaline Casts Urine Mucus 01/12/19 01/12/19 06:17 06:32 WBC 13.9 H RBC 2.89 L Hgb 9.0 L Hct 31.0 L MCV 107.2 H MCHC 29.2 L RDW 17.1 H Plt Count 117 L Neutrophils # (Manual) Lymphocytes # Lymphocytes # (Manual) Macrocytosis Marked A PT INR Potassium Chloride BUN Glucose POC Glucose (mg/dL) Plasma Lactic Acid Karson 3.3 H* Calcium Total Bilirubin AST Alkaline Phosphatase Troponin I Total Protein Albumin Urine Appearance Urine Protein Urine Blood Urine Nitrite Urine RBC Urine Bacteria Hyaline Casts Urine Mucus - Diagnostic Findings Chest x-ray: image reviewed Assessment and Plan Assessment: Impression: #1 Dyspnea secondary to an acute exacerbation of suspected diastolic congestive heart failure. Previous echocardiogram revealed preserved left ventricular systolic function with ejection fraction 55-60%. Rule out underlying pneumonia. Initial temp 100.7. White count. #2 Acute hypoxic respiratory failure secondary to above. #3 bacteremia with gram-negative bacilli suspect secondary to urinary tract inf ection. #4 Urinary tract infection, cultures pending. #5 Hypotension requiring pressor support secondary to above. #6 Atrial fibrillation with a controlled ventricular response, on oral Cordarone and warfarin. Therapeutic. #7 History of hypertension. #8 Hyperlipidemia. #9 Osteoarthritis. #10 Heart murmur. #11 Anemia Plan: The patient was seen and evaluated by Dr. Julian. Chest x-ray and labs were reviewed. We'll continue antibiotics in the form of ceftriaxone and azithromycin. Titrate down the norepinephrine as tolerated. Echocardiogram pending. Continue to monitor her closely here in the intensive care unit. We'll continue to follow and make further recommendations based on her clinical status. I, the cosigning physician, performed a history & physical examination of the patient. Lungs sounds crackles in the bilateral posterior bases Maintaining good O2 saturations in the 90s on 3 L/m per nasal cannula. I discussed the assessment and plan of care with my nurse practitioner, Danna Owens. I attest to the above note as dictated by her. Time with Patient: Greater than 30
[2019-01-12] MEDS ORDERED: FUROSEMIDE 10 MG/ML 4 ML VIAL IV STA (11:06)
[2019-01-12 11:59] LABS: Glucose,Whole Blood 94 mg/dL (75-99)
--- NOTE | 2019-01-12 14:27 | P.HPIM ---
History of Present Illness H&P Date: 01/12/19 Chief Complaint: dyspnea 73-year-old female patient who follows with Dr. Bhatia as her primary care physician. She has a history of atrial fibrillation anticoagulated with warf chris, hypertension, congestive heart failure, hyperlipidemia. No previous pulmonary issues. Lifelong nonsmoker. She presented here to the emergency room last evening with complaints of increasing shortness of breath, dyspnea on exertion, worsening shortness of breath when lying flat. Denies any fever, chills, night sweats. No cough or congestion. Chest x-ray revealed evidence of congestive heart failure with pleural effusions. Pulmonary blood culture positive for gram-negative bacilli. Her analysis with moderate blood, positive nitrites and many bacteria. Urine culture pending. Peak lactic acid 3.8. White count 13.3. Hemoglobin 8.4. Platelet count 112,000. She was initially admitted to the selective care unit. She was found to be hypotensive and subsequently transferred here to the intensive care unit. She is seen today in consultation in the ICU. She is on norepinephrine at 8 mcg/m. 0.9 normal saline at 20 ML's per hour. She is on 3 L/m per nasal cannula maintaining O2 saturations in the 90s. She's been initiated on ceftriaxone and azithromycin. Recently she is awake and alert in no acute distress. She denies any chest pain, palpitations lightheadedness or dizziness. No worsening shortness of breath. Currently in a positive balance. Initiated on IV Lasix. Small troponin leak at 0.143. Echocardiogram is pending. Previous echocardiogram in 2018 revealed a preserved left ventricular systolic function with ejection fraction 55-60%. There is a positive murmur. Review of Systems Constitutional: Reports fatigue, Reports lethargy, Reports malaise Eyes: denies blurred vision, denies decreased vision Ears: deny: decreased hearing Ears, nose, mouth and throat: Denies headache, Denies sore throat Cardiovascular: Reports dyspnea on exertion, Reports irregular heart beat, Reports shortness of breath Respiratory: Reports dyspnea Gastrointestinal: Denies abdominal pain, Denies diarrhea, Denies nausea, Denies vomiting Genitourinary: Denies dysuria, Denies hematuria Musculoskeletal: Denies myalgias Musculoskeletal: bilateral: ankle swelling, foot swelling Integumentary: Denies pruritus, Denies rash Neurological: Denies numbness, Denies weakness Psychiatric: Denies anxiety, Denies depression Endocrine: Denies fatigue, Denies weight change Hematologic/Lymphatic: Reports as per HPI Allergic/Immunologic: Reports as per HPI Past Medical History Past Medical History: Atrial Fibrillation, Heart Failure, CVA/TIA, Hyperlipidemia, Hypertension, Liver Disease, Osteoarthritis (OA) Additional Past Medical History / Comment(s): TIA, heart murmur, poor circulation in legs, swelling in lower legs, hepatitis age 14, urinary leakage/incontinence History of Any Multi-Drug Resistant Organisms: None Reported Past Surgical History: Appendectomy, Cholecystectomy, Hysterectomy, Orthopedic Surgery Additional Past Surgical History / Comment(s): Bilateral cataracts, arthroscopy both knees, D&C, jose d, keo cataracts Past Anesthesia/Blood Transfusion Reactions: No Reported Reaction, Motion Sickness Additional Past Anesthesia/Blood Transfusion Reaction / Comment(s): stated has never recieved blood Past Psychological History: No Psychological Hx Reported Smoking Status: Never smoker Past Alcohol Use History: None Reported Past Drug Use History: None Reported - Past Family History Sister(s) Family Medical History: Cancer Brother(s) Family Medical History: Cancer Mother Family Medical History: Dementia, Diabetes Mellitus Additional Family Medical History / Comment(s): age 89 Father Additional Family Medical History / Comment(s): age 70's from heart attack Medications and Allergies Home Medications Medication Instructions Recorded Confirmed Type DULoxetine HCL 60 mg PO BID 10/20/14 01/12/19 History Aspirin 81 mg PO DAILY 06/08/15 01/12/19 History Lovastatin [Mevacor] 40 mg PO DAILY 08/31/16 01/12/19 History Carvedilol [Coreg] 3.125 mg PO BID 10/03/16 01/12/19 History Oxybutynin Chloride [Ditropan XL] 10 mg PO DAILY 10/03/16 01/12/19 History Acetaminophen Tab [Tylenol] 325 mg PO Q4H PRN 09/16/18 01/12/19 History Amiodarone [Cordarone] 100 mg PO DAILY 01/12/19 01/12/19 History Lisinopril [Zestril] 20 mg PO DAILY 01/12/19 01/12/19 History Warfarin [Coumadin] 5 mg PO SUMOTUTHFR 01/12/19 01/12/19 History Warfarin [Coumadin] 7.5 mg PO WESA 01/12/19 01/12/19 History Allergies Allergy/AdvReac Type Severity Reaction Status Date / Time No Known Allergies Allergy Verified 09/16/18 10:38 Physical Exam Vitals: Vital Signs Temp Pulse Pulse Resp BP BP BP 01/12/19 10:00 62 15 103/50 01/12/19 09:45 63 15 106/49 01/12/19 09:30 62 12 109/51 01/12/19 09:15 62 16 110/49 01/12/19 09:00 61 15 111/45 01/12/19 08:45 62 15 114/48 01/12/19 08:30 62 15 117/49 01/12/19 08:15 63 16 110/46 01/12/19 08:03 01/12/19 08:00 98.2 F 61 14 117/51 01/12/19 07:45 63 15 112/50 01/12/19 07:30 61 21 112/48 01/12/19 07:15 61 17 98/45 01/12/19 07:00 62 17 112/44 01/12/19 06:50 62 16 109/45 01/12/19 06:40 62 17 95/43 01/12/19 06:30 62 16 89/50 01/12/19 06:20 62 16 106/51 01/12/19 06:10 62 17 105/52 01/12/19 06:00 60 19 110/62 01/12/19 05:50 63 14 113/60 01/12/19 05:40 60 17 101/73 01/12/19 05:30 63 15 110/59 05 05:21 62 21 103/53 05 05:10 60 16 104/48 01/12/19 05:01 63 24 112/52 01/12/19 04:50 60 21 107/50 0519 04:40 57 L 15 119/51 051819 04:30 58 L 16 110/58 051819 04:20 59 L 15 107/52 0518 04:10 60 15 91/50 0518 04:08 98.0 F 59 L 22 83/38 05 04:00 66 18/19 02:30 98.4 F 66 18 63/42 60/43 0518/19 02:05 66 20 0518/ 02:00 98.4 F 65 18 66/40 65/42 0518/19 01:20 98.7 F 66 18 70/45 0518/19 00:48 99 F 73 20 89/65 0518/19 00:06 80 18 86/46 0517/19 23:41 81 18 81/39 0517/ 23:00 99.6 F 83 20 95/42 0517/19 22:37 81 20 102/48 01/11/ 21:45 24 01/11/ 21:36 70 24 113/62 05/ 20:42 100.7 F H 70 22 149/107 Pulse Ox 01/12/19 10:00 97 01/12/19 09:45 96 01/12/19 09:30 97 01/12/19 09:15 96 01/12/19 09:00 96 01/12/19 08:45 97 01/12/19 08:30 96 01/12/19 08:15 95 01/12/19 08:03 95 01/12/19 08:00 97 01/12/19 07:45 96 01/12/19 07:30 94 L 01/12/19 07:15 94 L 01/12/19 07:00 95 01/12/19 06:50 94 L 01/12/19 06:40 95 01/12/19 06:30 94 L 01/12/19 06:20 95 01/12/19 06:10 95 01/12/19 06:00 94 L 01/12/19 05:50 92 L 18 05:40 92 L 01/12/19 05:30 93 L 01/12/19 05:21 93 L 01/12/19 05:10 93 L 01/12/19 05:01 94 L 01/12/19 04:50 96 01/12/19 04:40 95 01/12/19 04:30 94 L 18 04:20 95 01/12/19 04:10 95 01/12/19 04:08 94 L 01/12/19 04:00 01/12/19 02:30 94 L 01/12/19 02:05 01/12/19 02:00 95 01/12/19 01:20 97 01/12/19 00:48 95 01/12/19 00:06 93 L 01/11/19 23:41 92 L 01/11/19 23:00 93 L 01/11/19 22:37 95 01/11/19 21:45 01/11/19 21:36 91 L 01/11/19 20:42 88 L Intake and Output 01/11/19 01/12/19 01/12/19 22:59 06:59 14:59 Intake Total 1497.263 276.836 Output Total 680 70 Balance 817.263 206.836 Intake: IV 60 210 0.9 @ 20 60 60 Azithromycin 500 mg In 100 Sodium Chloride 0.9% 250 ml @ 250 mls/hr IVPB DAILY [facility] Rx#:[id number] cefTRIAXone 1 gm In 50 Sodium Chloride 0.9% 50 ml @ 100 mls/hr IVPB Q24HR [facility] Rx#:[id number] Intake, IV Titration 1037.263 66.836 Amount Norepinephrine 4 mg In 37.263 66.836 Sodium Chloride 0.9% 250 ml @ 0.05 MCG/KG/MIN 14. 69 mls/hr IV .[id number] [facility] Rx#:[id number] Sodium Chloride 0.9% 500 500 ml 500 ml @ 999 mls/hr IV .Q31M ONE Rx#:[id number] Sodium Chloride 0.9% 500 500 ml 500 ml @ 999 mls/hr IV .Q31M ONE Rx#:[id number] Oral 400 Output: Urine 680 70 Uretheral (Ruiz) 300 Other: Voiding Method Incontinent Indwelling Catheter Weight 77.111 kg 115.2 kg GENERAL EXAM: Alert, comfortable in no apparent distress. On 3 L nasal cannula. HEAD: Normocephalic. EYES: Normal reaction of pupils, equal size. NOSE: Clear with pink turbinates. THROAT: No erythema or exudates. NECK: No masses, no JVD. CHEST: No chest wall deformity. LUNGS: Equal air entry with crackles in the bilateral posterior bases. CVS: S1 and S2 normal with an audible murmur,irregular rhythm. ABDOMEN: No hepatosplenomegaly, normal bowel sounds, no guarding or rigidity. SPINE: No scoliosis or deformity SKIN: No rashes CENTRAL NERVOUS SYSTEM: Alert and oriented 3. No focal deficits, tone is normal in all 4 extremities. EXTREMITIES: There is no peripheral edema. No clubbing, no cyanosis. Peripheral pulses are intact. Results CBC & Chem 7: 01/12/19 06:32 01/12/19 03:17 Labs: Abnormal Lab Results - Last 24 Hours (Table) 01/11/19 01/11/19 01/11/19 Range/Units 21:31 21:31 21:31 WBC (3.8-10.6) k/uL RBC (3.80-5.40) m/uL Hgb (11.4-16.0) gm/dL Hct (34.0-46.0) % MCV 104.2 H (80.0-100.0) fL MCHC 30.3 L (31.0-37.0) g/dL RDW 16.5 H (11.5-15.5) % Plt Count 94 L (150-450) k/uL Neutrophils # (Manual) (1.3-7.7) k/uL Lymphocytes # 0.5 L (1.0-4.8) k/uL Lymphocytes # (Manual) (1.0-4.8) k/uL Macrocytosis PT 26.6 H (9.0-12.0) sec INR 2.8 H (<1.2) Potassium 5.3 H (3.5-5.1) mmol/L Chloride 112 H (98-107) mmol/L BUN 20 H (7-17) mg/dL Glucose 61 L (74-99) mg/dL POC Glucose (mg/dL) (75-99) mg/dL Plasma Lactic Acid Karson (0.7-2.0) mmol/L Calcium 8.3 L (8.4-10.2) mg/dL Total Bilirubin 2.3 H (0.2-1.3) mg/dL AST 83 H (14-36) U/L Alkaline Phosphatase 169 H (38-126) U/L Troponin I (0.000-0.034) ng/mL Total Protein (6.3-8.2) g/dL Albumin 2.7 L (3.5-5.0) g/dL Urine Appearance (Clear) Urine Protein (Negative) Urine Blood (Negative) Urine Nitrite (Negative) Urine RBC (0-5) /hpf Urine Bacteria (None) /hpf Hyaline Casts (0-2) /lpf Urine Mucus (None) /hpf 01/11/19 01/11/19 01/12/19 Range/Units 21:31 23:48 00:12 WBC (3.8-10.6) k/uL RBC (3.80-5.40) m/uL Hgb (11.4-16.0) gm/dL Hct (34.0-46.0) % MCV (80.0-100.0) fL MCHC (31.0-37.0) g/dL RDW (11.5-15.5) % Plt Count (150-450) k/uL Neutrophils # (Manual) (1.3-7.7) k/uL Lymphocytes # (1.0-4.8) k/uL Lymphocytes # (Manual) (1.0-4.8) k/uL Macrocytosis PT (9.0-12.0) sec INR (<1.2) Potassium (3.5-5.1) mmol/L Chloride (98-107) mmol/L BUN (7-17) mg/dL Glucose (74-99) mg/dL POC Glucose (mg/dL) 72 L (75-99) mg/dL Plasma Lactic Acid Karson 2.2 H* (0.7-2.0) mmol/L Calcium (8.4-10.2) mg/dL Total Bilirubin (0.2-1.3) mg/dL AST (14-36) U/L Alkaline Phosphatase (38-126) U/L Troponin I (0.000-0.034) ng/mL Total Protein (6.3-8.2) g/dL Albumin (3.5-5.0) g/dL Urine Appearance Cloudy H (Clear) Urine Protein Trace H (Negative) Urine Blood Moderate H (Negative) Urine Nitrite Positive H (Negative) Urine RBC 16 H (0-5) /hpf Urine Bacteria Many H (None) /hpf Hyaline Casts 11 H (0-2) /lpf Urine Mucus Rare H (None) /hpf 01/12/19 01/12/19 01/12/19 Range/Units 00:50 01:18 01:35 WBC (3.8-10.6) k/uL RBC (3.80-5.40) m/uL Hgb (11.4-16.0) gm/dL Hct (34.0-46.0) % MCV (80.0-100.0) fL MCHC (31.0-37.0) g/dL RDW (11.5-15.5) % Plt Count (150-450) k/uL Neutrophils # (Manual) (1.3-7.7) k/uL Lymphocytes # (1.0-4.8) k/uL Lymphocytes # (Manual) (1.0-4.8) k/uL Macrocytosis PT (9.0-12.0) sec INR (<1.2) Potassium (3.5-5.1) mmol/L Chloride (98-107) mmol/L BUN (7-17) mg/dL Glucose (74-99) mg/dL POC Glucose (mg/dL) 58 L 63 L (75-99) mg/dL Plasma Lactic Acid Karson 2.4 H* (0.7-2.0) mmol/L Calcium (8.4-10.2) mg/dL Total Bilirubin (0.2-1.3) mg/dL AST (14-36) U/L Alkaline Phosphatase (38-126) U/L Troponin I (0.000-0.034) ng/mL Total Protein (6.3-8.2) g/dL Albumin (3.5-5.0) g/dL Urine Appearance (Clear) Urine Protein (Negative) Urine Blood (Negative) Urine Nitrite (Negative) Urine RBC (0-5) /hpf Urine Bacteria (None) /hpf Hyaline Casts (0-2) /lpf Urine Mucus (None) /hpf 01/12/19 01/12/19 01/12/19 Range/Units 03:14 03:17 03:17 WBC 12.2 H (3.8-10.6) k/uL RBC 2.62 L (3.80-5.40) m/uL Hgb 8.4 L D (11.4-16.0) gm/dL Hct 27.4 L (34.0-46.0) % MCV 104.3 H (80.0-100.0) fL MCHC 30.7 L (31.0-37.0) g/dL RDW 17.3 H (11.5-15.5) % Plt Count 110 L (150-450) k/uL Neutrophils # (Manual) 10.90 H (1.3-7.7) k/uL Lymphocytes # (1.0-4.8) k/uL Lymphocytes # (Manual) 0.61 L (1.0-4.8) k/uL Macrocytosis PT (9.0-12.0) sec INR (<1.2) Potassium (3.5-5.1) mmol/L Chloride (98-107) mmol/L BUN (7-17) mg/dL Glucose (74-99) mg/dL POC Glucose (mg/dL) 122 H (75-99) mg/dL Plasma Lactic Acid Karson (0.7-2.0) mmol/L Calcium (8.4-10.2) mg/dL Total Bilirubin (0.2-1.3) mg/dL AST (14-36) U/L Alkaline Phosphatase (38-126) U/L Troponin I 0.143 H* (0.000-0.034) ng/mL Total Protein (6.3-8.2) g/dL Albumin (3.5-5.0) g/dL Urine Appearance (Clear) Urine Protein (Negative) Urine Blood (Negative) Urine Nitrite (Negative) Urine RBC (0-5) /hpf Urine Bacteria (None) /hpf Hyaline Casts (0-2) /lpf Urine Mucus (None) /hpf 01/12/19 01/12/19 01/12/19 Range/Units 03:17 03:17 04:06 WBC 13.3 H (3.8-10.6) k/uL RBC 2.68 L (3.80-5.40) m/uL Hgb 8.4 L (11.4-16.0) gm/dL Hct 28.3 L (34.0-46.0) % MCV 105.6 H (80.0-100.0) fL MCHC 29.8 L (31.0-37.0) g/dL RDW 17.0 H (11.5-15.5) % Plt Count 112 L (150-450) k/uL Neutrophils # (Manual) (1.3-7.7) k/uL Lymphocytes # (1.0-4.8) k/uL Lymphocytes # (Manual) (1.0-4.8) k/uL Macrocytosis Marked A PT (9.0-12.0) sec INR (<1.2) Potassium (3.5-5.1) mmol/L Chloride 113 H (98-107) mmol/L BUN 21 H (7-17) mg/dL Glucose (74-99) mg/dL POC Glucose (mg/dL) (75-99) mg/dL Plasma Lactic Acid Karson 3.8 H* (0.7-2.0) mmol/L Calcium 7.8 L (8.4-10.2) mg/dL Total Bilirubin 1.9 H (0.2-1.3) mg/dL AST 60 H (14-36) U/L Alkaline Phosphatase (38-126) U/L Troponin I (0.000-0.034) ng/mL Total Protein 6.1 L (6.3-8.2) g/dL Albumin 1.9 L (3.5-5.0) g/dL Urine Appearance (Clear) Urine Protein (Negative) Urine Blood (Negative) Urine Nitrite (Negative) Urine RBC (0-5) /hpf Urine Bacteria (None) /hpf Hyaline Casts (0-2) /lpf Urine Mucus (None) /hpf 01/12/19 01/12/19 01/12/19 Range/Units 06:17 06:32 09:09 WBC 13.9 H (3.8-10.6) k/uL RBC 2.89 L (3.80-5.40) m/uL Hgb 9.0 L (11.4-16.0) gm/dL Hct 31.0 L (34.0-46.0) % MCV 107.2 H (80.0-100.0) fL MCHC 29.2 L (31.0-37.0) g/dL RDW 17.1 H (11.5-15.5) % Plt Count 117 L (150-450) k/uL Neutrophils # (Manual) (1.3-7.7) k/uL Lymphocytes # (1.0-4.8) k/uL Lymphocytes # (Manual) (1.0-4.8) k/uL Macrocytosis Marked A PT (9.0-12.0) sec INR (<1.2) Potassium (3.5-5.1) mmol/L Chloride (98-107) mmol/L BUN (7-17) mg/dL Glucose (74-99) mg/dL POC Glucose (mg/dL) (75-99) mg/dL Plasma Lactic Acid Karson 3.3 H* (0.7-2.0) mmol/L Calcium (8.4-10.2) mg/dL Total Bilirubin (0.2-1.3) mg/dL AST (14-36) U/L Alkaline Phosphatase (38-126) U/L Troponin I 0.165 H* (0.000-0.034) ng/mL Total Protein (6.3-8.2) g/dL Albumin (3.5-5.0) g/dL Urine Appearance (Clear) Urine Protein (Negative) Urine Blood (Negative) Urine Nitrite (Negative) Urine RBC (0-5) /hpf Urine Bacteria (None) /hpf Hyaline Casts (0-2) /lpf Urine Mucus (None) /hpf Microbiology - Last 24 Hours (Table) 01/12/19 07:56 Urine Culture - Preliminary Urine,Catheterized 01/11/19 21:31 Blood Culture - Final Blood Assessment and Plan Assessment: 1 Dyspnea secondary to an acute exacerbation of suspected diastolic congestive heart failure. Previous echocardiogram revealed preserved left ventricular systolic function with ejection fraction 55-60%. Rule out underlying pneumonia. - Patient is started on IV antibiotics in the form of ceftriaxone and azithromycin; continue with bronchodilator nebulizer treatment 2 Acute hypoxic respiratory failure secondary to above. 3 Bacteremia with gram-negative bacilli suspect secondary to urinary tract infection. - Continue with current antibiotics and further adjustments once culture results are available 4 Urinary tract infection, cultures pending. 5 Hypotension requiring pressor support secondary to above. 6 Atrial fibrillation with a controlled ventricular response, on oral Cordarone and warfarin. Therapeutic. 7 History of hypertension. We will hold home antihypertensive medications 8 Hyperlipidemia. DVT prophylaxis; SCDs CODE STATUS; full code
--- NOTE | 2019-01-12 15:59 | ECHOF ---
Referral Reason:as MEASUREMENTS -------- HEIGHT: 167.6 cm WEIGHT: 114.8 kg BP: 103/50 RVIDd: 3.1 cm (< 3.3) IVSd: 1.5 cm (0.6 - 1.1) LVIDd: 3.7 cm (3.9 - 5.3) LVPWd: 1.4 cm (0.6 - 1.1) IVSs: 1.8 cm LVIDs: 2.7 cm LVPWs: 1.9 cm LA Diam: 4.2 cm (2.7 - 3.8) LAESV Index (A-L): 45.72 ml/m Ao Diam: 3.4 cm (2.0 - 3.7) AV Cusp: 1.8 cm (1.5 - 2.6) MV EXCURSION: 15.965 mm (> 18.000) MV EF SLOPE: 109 mm/s (70 - 150) EPSS: 0.4 cm MV E Silver: 1.47 m/s MV DecT: 266 ms MV A Silver: 0.77 m/s MV E/A Ratio: 1.91 AV maxP.29 mmHg AV meanP.22 mmHg RAP: 15.00 mmHg RVSP: 46.35 mmHg FINDINGS -------- Sinus rhythm. This was a technically good study. The left ventricular size is normal. There is moderate concentric left ventricular hypertrophy. O verall left ventricular systolic function is normal with, an EF between 55 - 60 %. The right ventricle is normal in size. LA is severely dilated >40 ml/m2 The right atrium is normal in size. Interatrial and interventricular septum intact. There is mild aortic valve sclerosis. There is mild aortic stenosis present. Peak/mean gradient a cross the Aortic Valve is 34.29mmHg / 17.22mmHg. The mitral valve leaflets are mildly thickened. Mild mitral annular calcification present. Mild m itral regurgitation is present. Mild tricuspid regurgitation present. There is mild to moderate pulmonary hypertension. The right ventricular systolic pressure, as measured by Doppler, is 46.35mmHg. Moderate pulmonic regurgitation. The aortic root size is normal. The inferior vena cava is dilated with no significant inspiratory collapse which is consistent estima andrea right atrial pressure of >15 mmHg. There is no pericardial effusion. CONCLUSIONS -------- 1. Sinus rhythm. 2. This was a technically good study. 3. The left ventricular size is normal. 4. There is moderate concentric left ventricular hypertrophy. 5. Overall left ventricular systolic function is normal with, an EF between 55 - 60 %. 6. LA is severely dilated >40 ml/m2 7. Interatrial and interventricular septum intact. 8. There is mild aortic valve sclerosis. 9. There is mild aortic stenosis present. 10. Peak/mean gradient across the Aortic Valve is 34.29mmHg / 17.22mmHg. 11. The mitral valve leaflets are mildly thickened. 12. Mild mitral annular calcification present. 13. Mild mitral regurgitation is present. 14. Mild tricuspid regurgitation present. 15. There is mild to moderate pulmonary hypertension. 16. Moderate pulmonic regurgitation. 17. The aortic root size is normal. 18. The inferior vena cava is dilated with no significant inspiratory collapse which is consistent es timated right atrial pressure of >15 mmHg. 19. There is no pericardial effusion. TOBACCO WETTER: Adele Goldberg RDCS
[2019-01-12 17:37] LABS: Glucose,Whole Blood 92 mg/dL (75-99)
[2019-01-12] MEDS: ACETAMINOPHEN TAB 325 MG TAB PO PRN (20:24)
[2019-01-12 21:12] LABS: Glucose,Whole Blood 111 mg/dL (75-99)
[2019-01-13 02:35] LABS: Glucose,Whole Blood 90 mg/dL (75-99)
[2019-01-13 06:21] LABS: Anisocytosis Slight; HCT 30.1 % (34.0-46.0); HGB 8.9 gm/dL (11.4-16.0); Hypochromasia Marked; MCH 31.5 pg (25.0-35.0); MCHC 29.6 g/dL (31.0-37.0); MCV 106.6 fL (80.0-100.0); Macrocytosis Marked; Mean Platelet Volume 7.9; Platelet Count 101 k/uL (150-450); RBC 2.82 m/uL (3.80-5.40); RDW 17.1 % (11.5-15.5); WBC 9.2 k/uL (3.8-10.6)
[2019-01-13 06:27] LABS: Potassium 4.6 mmol/L (3.5-5.1)
[2019-01-13 06:35] LABS: INR 3.2 (<1.2); Prothrombin Time 30.4 sec (9.0-12.0)
[2019-01-13 07:04] LABS: Glucose,Whole Blood 75 mg/dL (75-99)
[2019-01-13] MEDS: FUROSEMIDE 10 MG/ML 4 ML VIAL IV SCH (07:42)
[2019-01-13] MEDS: AZITHROMYCIN 500 MG in SODIUM CHLORIDE 0.9% 250 ML IVPB SCH (07:42)
[2019-01-13] MEDS: AMIODARONE 100 MG TAB PO SCH (07:42)
--- NOTE | 2019-01-13 08:33 | PN ---
PROGRESS NOTE Mrs. Diana is a 73-year-old female who presented with urinary tract infection and change in mental status. She is more awake and alert today. Hemodynamically, she is stable. She is off her norepinephrine. She has no symptoms of chest pain. No dizziness or palpitation. She has a history of atrial fibrillation but continues to be in sinus mechanism. She has chronic bilateral ulceration, has been followed by Dr. Juan in that regard. She underwent an echocardiogram yesterday that showed a preserved left ventricular size and systolic function with mild aortic stenosis and mild mitral regurgitation with moderate pulmonary hypertension. She continues to be at this time on amiodarone 100 mg daily, furosemide 40 mg IV q.12 hours. PHYSICAL EXAMINATION: Blood pressure 115/70 with a heart rate in the 60. LUNGS: No wheezes. HEART: Regular rate and rhythm, S1, S2. No S3 with systolic ejection murmur. No diastolic murmur. ABDOMEN: Soft, nontender. EXTREMITIES with chronic skin changes and ulceration on the left leg. LAB DATA: Lab data revealed BUN and creatinine 30 and 1.22, potassium 4.6 hemoglobin of 8.9. IMPRESSION: 1. Urosepsis with hypotension, change in mental status, improved. 2. Paroxysmal atrial fibrillation, remains in sinus mechanism anticoagulated on Coumadin. 3. Anemia. 4. No evidence of congestive heart failure. 5. Mild aortic stenosis. 6. History of hyperlipidemia. 7. Peripheral disease with chronic ulceration. RECOMMENDATION: I will switch her to oral diuretics. Follow her renal function. Increase her activity. Depending on her progress, further recommendations will be made. MMODL / IJN: [id number] /
[2019-01-13] MEDS: ACETAMINOPHEN TAB 325 MG TAB PO PRN ×2 (09:41→23:19)
--- NOTE | 2019-01-13 10:50 | PN ---
PROGRESS NOTE DATE OF SERVICE: 01/13/2019 This is a patient who was seen in consultation yesterday. She had shortness of breath which we thought was related primarily to diastolic heart failure. In addition, we thought there might be some pneumonia as well as she had an elevated white count and slight temperature elevation. She also had what appeared to be a possible urinary tract infection and bacteremia secondary to urinary tract infection. In fact, her blood cultures were positive for gram-negative bacilli, but they had not been identified as yet. The patient initially had hypotension requiring fluids and pressor support, but the Levophed has been off since yesterday. She also has a history of atrial fibrillation, benign essential hypertension, hyperlipidemia, DJD, and chronic anemia. Today she is doing well. She is on 3 L nasal cannula. Her IV is 0.9 at 20 mL an hour. Levophed has been weaned off. She remains on Rocephin and Zithromax. Rocephin and Zithromax for possible pneumonia, and Rocephin for possible urinary tract infection with bacteremia. PHYSICAL EXAMINATION: VITAL SIGNS: Current vital signs are reviewed. Temperature is 98, heart rate 70, respiratory rate 12, blood pressure 119/59, mean 79, saturations are 97% on 2 L. GENERAL: Appears in no acute distress. HEENT examination is grossly unremarkable. Mucous membranes are moist. NECK: Supple. Full range of motion. No adenopathy or thyromegaly. NECK veins are flat. CARDIOVASCULAR examination reveals regular rhythm and rate. Heart rate 60 beats per minute. S1, S2 normal. No murmur. LUNGS: Reveal mostly clear breath sounds. A few scattered rhonchi. No wheezes. ABDOMEN: Obese. Bowel sounds are heard. EXTREMITIES are intact. No significant edema. SKIN without rash. NEUROLOGIC examination is brief but nonfocal. Again, microbiology shows gram-negative bacilli in the blood. It has not been identified as yet. LABS: Reviewed. White count 9.2, hemoglobin 8.9, hematocrit 30.1, platelet count 101,000. PT 30.4, INR was 3.2. Sodium, potassium normal. Chloride 112, CO2 24, anion gap 3. BUN 30, creatinine 1.22. No chest x-ray was done. ASSESSMENT: 1. Shortness of breath, multifactorial, in part related to an acute exacerbation of the patient's diastolic congestive heart failure as well as possible underlying pneumonia. 2. Acute hypoxemic respiratory failure, improved. 3. Rule out urinary tract infection with urosepsis and bacteremia secondary to gram- negative bacilli, yet to be identified. 4. Hypotension, secondary to possible sepsis, requiring fluids and the vasopressors, which have been weaned off. 5. Atrial fibrillation. 6. Hypertension. 7. Hyperlipidemia. 8. Degenerative joint disease. 9. Anemia. PLAN: The patient is on good medications. She remains on Rocephin and Zithromax for suspected community-acquired pneumonia and Rocephin for suspected urinary tract infection. Medications are reviewed. Labs and x-rays are reviewed. Problem list is reviewed. No additional recommendations are made. The patient looks much better today than she did yesterday. MMLOVEL / KENDRAN: [id number] /
--- NOTE | 2019-01-13 20:35 | CONS ---
DATE OF CONSULTATION: 01/13/2019 Niesha is known to me from the past. The patient was following in the wound clinic. Then she stopped coming to the Wound Clinic. She has been treated by the home care. Patient came with a history of acute excurvation of congestive heart failure. Also, patient has history of respiratory failure with gram negative bacilli. Also patient has a urinary tract infection. The patient has history of atrial fibrillation on Coumadin. The patient was consulted for ulcer left lower extremity, anterior aspect of the left lower leg. The patient was seen in her room, lying comfortably in bed. Neck is supple. Chest is rhonchi bilateral. Abdomen is soft. Femoral pulses are present. Patient has venous stasis ulcer left lower extremity. The base of the wound is clean and granulating. PLAN: We will use Aquacel Silver for the wound and when patient is discharged from the hospital, I will follow in the wound clinic on Monday. We will follow with you. Thank you very much for this consultation. MMLOVEL / IJN: [id number] / CHARLIE
[2019-01-13] MEDS: FUROSEMIDE 40 MG TAB PO SCH (20:43)
--- NOTE | 2019-01-14 01:40 | P.PN ---
Subjective Progress Note Date: 01/13/19 Principal diagnosis: Acute exacerbation diastolic CHF Acute hypoxic respiratory failure Gram-negative bacteremia 73-year-old female patient who follows with Dr. Bhatia as her primary care physician. She has a history of atrial fibrillation anticoagulated with warfarin, hypertension, congestive heart failure, hyperlipidemia. No previous pulmonary issues. Lifelong nonsmoker. She presented here to the emergency room last evening with complaints of increasing shortness of breath, dyspnea on exertion, worsening shortness of breath when lying flat. Patient was found to be in acute respiratory failure and is admitted to ICU for further evaluation 01/13/2019 Patient is seen and evaluated in room at bedside in ICU; patient remains on 3L of O2; Levophed has been weaned off; patient remains on Rocephin and Zithromax for PNA, UTI and bacteremia Objective - Vital Signs Vital signs: Vital Signs Temp 98.0 F 01/13/19 08:00 Pulse 67 01/13/19 11:30 Resp 15 01/13/19 11:30 BP 106/55 01/13/19 11:30 Pulse Ox 94 L 01/13/19 11:30 Intake & Output 01/12/19 01/13/19 01/13/19 18:59 06:59 18:59 Intake Total 1356.737 378.380 424.946 Output Total 428 186 6724 Balance 881.737 -246.620 -575.054 Weight 115.2 kg 117.2 kg Intake: IV 390 240 420 0.9 @ 20 240 240 120 Azithromycin 500 mg In 100 250 Sodium Chloride 0.9% 250 ml @ 250 mls/hr IVPB DAILY [facility] Rx#:[id number] cefTRIAXone 1 gm In 50 50 Sodium Chloride 0.9% 50 ml @ 100 mls/hr IVPB Q24HR [facility] Rx#:[id number] Intake, IV Titration 216.737 138.380 4.946 Amount Norepinephrine 4 mg In 216.737 138.380 4.946 Sodium Chloride 0.9% 250 ml @ 0.05 MCG/KG/MIN 14. 69 mls/hr IV .[id number] [facility] Rx#:[id number] Oral 750 Output: Urine 698 635 5569 Other: Voiding Method Indwelling Catheter Indwelling Catheter Indwelling Catheter - Exam PHYSICAL EXAMINATION: GENERAL: The patient is alert and oriented x3, not in any acute distress. Well developed, well nourished. HEENT: Pupils are round and equally reacting to light. EOMI. No scleral icterus. No conjunctival pallor. Normocephalic, atraumatic. No pharyngeal erythema. No thyromegaly. CARDIOVASCULAR: S1 and S2 present. No murmurs, rubs, or gallops. PULMONARY: Chest is clear to auscultation, no wheezing or crackles. ABDOMEN: Soft, nontender, nondistended, normoactive bowel sounds. No palpable organomegaly. MUSCULOSKELETAL: No joint swelling or deformity. EXTREMITIES: No cyanosis, clubbing, or pedal edema. NEUROLOGICAL: Gross neurological examination did not reveal any focal deficits. SKIN: No rashes. - Labs CBC & Chem 7: 01/13/19 05:26 01/13/19 05:26 Labs: Abnormal Lab Results - Last 24 Hours (Table) 01/12/19 01/13/19 01/13/19 Range/Units 21:09 05:26 05:26 RBC (3.80-5.40) m/uL Hgb (11.4-16.0) gm/dL Hct (34.0-46.0) % MCV (80.0-100.0) fL MCHC (31.0-37.0) g/dL RDW (11.5-15.5) % Plt Count (150-450) k/uL Macrocytosis PT 30.4 H (9.0-12.0) sec INR 3.2 H (<1.2) Chloride 112 H (98-107) mmol/L BUN 30 H (7-17) mg/dL Creatinine 1.22 H (0.52-1.04) mg/dL POC Glucose (mg/dL) 111 H (75-99) mg/dL Calcium 8.0 L (8.4-10.2) mg/dL 01/13/19 Range/Units 05:26 RBC 2.82 L (3.80-5.40) m/uL Hgb 8.9 L (11.4-16.0) gm/dL Hct 30.1 L (34.0-46.0) % MCV 106.6 H (80.0-100.0) fL MCHC 29.6 L (31.0-37.0) g/dL RDW 17.1 H (11.5-15.5) % Plt Count 101 L (150-450) k/uL Macrocytosis Marked A PT (9.0-12.0) sec INR (<1.2) Chloride (98-107) mmol/L BUN (7-17) mg/dL Creatinine (0.52-1.04) mg/dL POC Glucose (mg/dL) (75-99) mg/dL Calcium (8.4-10.2) mg/dL Microbiology - Last 24 Hours (Table) 01/12/19 07:56 Urine Culture - Final Urine,Catheterized 01/11/19 21:31 Blood Culture Gram Stain - Final Blood Blood Culture - Final Escherichia coli 01/12/19 16:50 Gram Stain - Preliminary Leg - Left Wound Culture - Preliminary 01/12/19 16:50 Anaerobic Culture - Preliminary Leg - Left Assessment and Plan Assessment: 1 Dyspnea secondary to an acute exacerbation of suspected diastolic congestive heart failure. Previous echocardiogram revealed preserved left ventricular systolic function with ejection fraction 55-60%. Rule out underlying pneumonia. - Patient is started on IV antibiotics in the form of ceftriaxone and azithromycin; continue with bronchodilator nebulizer treatment 2 Acute hypoxic respiratory failure secondary to above. 3 Bacteremia with gram-negative bacilli suspect secondary to urinary tract infection. - Continue with current antibiotics and further adjustments once culture results are available 4 Urinary tract infection, cultures pending. 5 Hypotension requiring pressor support secondary to above. 6 Atrial fibrillation with a controlled ventricular response, on oral Cordarone and warfarin. Therapeutic. 7 History of hypertension. We will hold home antihypertensive medications 8 Hyperlipidemia. DVT prophylaxis; SCDs CODE STATUS; full code Time with Patient: Greater than 30
[2019-01-14 04:35] LABS: Anisocytosis Slight; HCT 30.2 % (34.0-46.0); Hypochromasia Marked; MCHC 29.7 g/dL (31.0-37.0); MCV 107.8 fL (80.0-100.0); Macrocytosis Marked; Mean Platelet Volume 8.2; RDW 17.3 % (11.5-15.5); WBC 6.8 k/uL (3.8-10.6)
[2019-01-14 04:49] LABS: Calcium 8.2 mg/dL (8.4-10.2); Potassium 4.8 mmol/L (3.5-5.1)
[2019-01-14 05:04] LABS: Platelet Count 75 k/uL (150-450)
[2019-01-14] MEDS: NOREPINEPHRINE 4 MG in SODIUM CHLORIDE 0.9% 250 ML IV SCH (06:30)
--- NOTE | 2019-01-14 08:03 | PN ---
PROGRESS NOTE Mrs. Diana is a 73-year-old female who presented with change in mental status, has a prior history of atrial fibrillation, status post cardioversion. She had urinary tract infection. She is more awake and alert. She denied any chest pain. Her breathing has been stable. Hemodynamically, she is stable. She has no evidence of arrhythmia. She continued to be in sinus mechanism. She was evaluated by Dr. Juan yesterday in regard to her left lower extremity wound. She continues to be on amiodarone 100 mg daily, Lasix 40 mg orally twice a day. She has been on Coumadin. PHYSICAL EXAMINATION: Blood pressure 122/50 with the heart rate in the 70s. LUNGS: Clear. HEART: Regular rate and rhythm. S1, S2. No S3. No rub appreciated with a systolic ejection murmur 2/6 at the base. No diastolic murmur. ABDOMEN: Soft, obese, nontender. EXTREMITIES: Chronic ulceration on the left side. Chronic skin changes with edema on the left side. LAB DATA: Lab data revealed hemoglobin of 9. BUN and creatinine 38 and 1.25. Potassium 4.8. IMPRESSION: 1. Urosepsis with change in mental status, improved. 2. Paroxysmal fibrillation, status post cardioversion, remains sinus mechanism. 3. Mild aortic stenosis by echocardiogram. 4. Hyperlipidemia. 5. Peripheral arterial disease with chronic ulceration. RECOMMENDATION: I will re-initiate the treatment with her beta kinsey and her statin. We will check her INR and depending on that, will re-initiate treatment with the Coumadin. MMODL / IJN: [id number] /
[2019-01-14] MEDS: AMIODARONE 100 MG TAB PO SCH (08:16)
[2019-01-14] MEDS: FUROSEMIDE 40 MG TAB PO SCH ×2 (08:16→22:33)
[2019-01-14] MEDS: ATORVASTATIN 40 MG TAB PO SCH (08:16)
[2019-01-14] MEDS: AZITHROMYCIN 500 MG in SODIUM CHLORIDE 0.9% 250 ML IVPB SCH (08:18)
--- NOTE | 2019-01-14 09:15 | XR ---
EXAMINATION TYPE: XR chest 1V portable DATE OF EXAM: 01/14/2019 COMPARISON: 01/12/2019 INDICATION: CHF TECHNIQUE: Single frontal view of the chest is obtained. FINDINGS: The heart size is mildly prominent. The pulmonary vasculature is normal. Mild left and minimal right bibasilar infiltrates are present. This appears slightly improved over th e interval. Consider atelectasis or pneumonia. In the proper clinical setting, resolving atypical pul monary edema could be considered. IMPRESSION: 1. Minimal right and mild left lower lobe improving infiltrates. 2. Cardiomegaly
[2019-01-14 12:17] LABS: Glucose,Whole Blood 76 mg/dL (75-99)
--- NOTE | 2019-01-14 15:11 | P.PN ---
Subjective Progress Note Date: 01/14/19 On today's evaluation, I'm dictating this 73-year-old here patient for a follow- up. The patient is feeling better compared to yesterday. The patient has E. coli bacteremia the source is not clear. It's possibly the wound in the left lower extremity. Nevertheless the possibility of a gram-negative left lower lobe pneumonia cannot be completely excluded. She is doing better. She is off pressors for now. She is producing adequate urine output. Local wound care is being done. No respiratory distress. No cough. No sputum production. No chest tightness no wheezing. Echocardiogram showed an ejection fraction of 55- 60% in addition to mild aortic stenosis and mild regurgitation and mild-to-m oderate pulmonary hypertension. No other significant events overnight. She remains on a combination of Rocephin and Zithromax. Objective - Vital Signs Vital signs: Vital Signs Temp 98.2 F 01/14/19 12:00 Pulse 71 01/14/19 12:00 Resp 16 01/14/19 12:00 BP 146/93 01/14/19 12:00 Pulse Ox 98 01/14/19 12:00 Intake & Output 01/13/19 01/14/19 01/14/19 18:59 06:59 18:59 Intake Total 504.946 260 960 Output Total 1275 1610 700 Balance -770.054 -1350 260 Weight 119.4 kg Intake: IV 500 260 460 0.9 @ 20 200 260 160 Azithromycin 500 mg In 250 250 Sodium Chloride 0.9% 250 ml @ 250 mls/hr IVPB DAILY [facility] Rx#:[id number] cefTRIAXone 1 gm In 50 50 Sodium Chloride 0.9% 50 ml @ 100 mls/hr IVPB Q24HR [facility] Rx#:[id number] Intake, IV Titration 4.946 Amount Norepinephrine 4 mg In 4.946 Sodium Chloride 0.9% 250 ml @ 0.05 MCG/KG/MIN 14. 69 mls/hr IV .[id number] [facility] Rx#:[id number] Oral 500 Output: Urine 1275 1610 700 Other: Voiding Method Indwelling Catheter Indwelling Catheter Indwelling Catheter - Exam GENERAL EXAM: Alert, comfortable in no apparent distress. On 3 L nasal cannula. HEAD: Normocephalic. EYES: Normal reaction of pupils, equal size. NOSE: Clear with pink turbinates. THROAT: No erythema or exudates. NECK: No masses, no JVD. CHEST: No chest wall deformity. LUNGS: Equal air entry with crackles in the bilateral posterior bases. CVS: S1 and S2 normal with an audible murmur,irregular rhythm. ABDOMEN: No hepatosplenomegaly, normal bowel sounds, no guarding or rigidity. SPINE: No scoliosis or deformity SKIN: No rashes CENTRAL NERVOUS SYSTEM: Alert and oriented 3. No focal deficits, tone is normal in all 4 extremities. EXTREMITIES: There is no peripheral edema. No clubbing, no cyanosis. Peripheral pulses are intact. - Labs CBC & Chem 7: 01/14/19 04:17 01/14/19 04:17 Labs: Abnormal Lab Results - Last 24 Hours (Table) 01/14/19 01/14/19 Range/Units 04:17 04:17 RBC 2.80 L (3.80-5.40) m/uL Hgb 9.0 L (11.4-16.0) gm/dL Hct 30.2 L (34.0-46.0) % MCV 107.8 H (80.0-100.0) fL MCHC 29.7 L (31.0-37.0) g/dL RDW 17.3 H (11.5-15.5) % Plt Count 75 L (150-450) k/uL Macrocytosis Marked A Chloride 110 H (98-107) mmol/L BUN 38 H (7-17) mg/dL Creatinine 1.25 H (0.52-1.04) mg/dL Calcium 8.2 L (8.4-10.2) mg/dL Microbiology - Last 24 Hours (Table) 01/12/19 16:50 Gram Stain - Preliminary Leg - Left Wound Culture - Preliminary Gram Neg Bacilli 01/12/19 07:56 Urine Culture - Final Urine,Catheterized Assessment and Plan Plan: #1 Dyspnea secondary to suspected left lower lobe pneumonia/sepsis. Clinically improved and the patient is currently on 3 L of oxygen nasal cannula. The patient is diagnosed having gram-negative sepsis. #2 Acute hypoxic respiratory failure secondary to above, improving currently on 3 L of oxygen nasal cannula. Consider left lower lobe pneumonia. #3 acute gram-negative sepsis with E. coli, likely secondary to underlying wound infection versus left lower lobe pneumonia. #4 left lower lobe pneumonia, improving #5 Hypotension requiring pressor support secondary to above. The patient is currently normotensive on no pressors #6 Atrial fibrillation with a controlled ventricular response, on oral Cordarone and warfarin. Therapeutic. #7 History of hypertension. #8 Hyperlipidemia. #9 Osteoarthritis. #10 Heart murmur. No significant valvular abnormalities and echocardiogram with a preserved LV function #11 Anemia, chronic #12 chronic, cytopenia Plan Continue Rocephin and Zithromax. Wean down the FiO2 as tolerated. Monitor renal function. Monitor blood pressure. Advance diet. Advance activity as tolerated. The patient can be stepped down to medical surgical floor today.
[2019-01-14] MEDS: CARVEDILOL 3.125 MG TAB PO SCH (16:37)
[2019-01-14 17:24] LABS: Glucose,Whole Blood 93 mg/dL (75-99)
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
[2019-01-14] MEDS: DULoxetine HCL 60 MG CAPSULE.DR PO SCH (22:33)
[2019-01-15 06:38] LABS: Calcium 8.2 mg/dL (8.4-10.2); INR 2.5 (<1.2); Potassium 4.4 mmol/L (3.5-5.1); Prothrombin Time 24.1 sec (9.0-12.0)
[2019-01-15 06:41] LABS: Anisocytosis Slight; Basophils % (A) 0 %; Eosinophils % (A) 0 %; HCT 27.8 % (34.0-46.0); HGB 8.7 gm/dL (11.4-16.0); Hypochromasia Slight; Lymphocytes # (A) 1.1 k/uL (1.0-4.8); Lymphocytes % (A) 19 %; MCH 32.2 pg (25.0-35.0); MCHC 31.2 g/dL (31.0-37.0); MCV 103.3 fL (80.0-100.0); Macrocytosis Moderate; Monocytes # (A) 0.4 k/uL (0-1.0); Monocytes % (A) 8 %; Neutrophils # (A) 3.9 k/uL (1.3-7.7); Neutrophils % (A) 68 %; RBC 2.69 m/uL (3.80-5.40); RDW 17.3 % (11.5-15.5); WBC 5.8 k/uL (3.8-10.6)
[2019-01-15] MEDS: CARVEDILOL 3.125 MG TAB PO SCH ×2 (06:42→16:59)
[2019-01-15 06:54] LABS: Platelet Count 80 k/uL (150-450)
[2019-01-15 08:20] LABS: Large Platelets Present
[2019-01-15] MEDS: FUROSEMIDE 40 MG TAB PO SCH ×2 (08:23→20:55)
[2019-01-15] MEDS: ATORVASTATIN 40 MG TAB PO SCH (08:23)
[2019-01-15] MEDS: DULoxetine HCL 60 MG CAPSULE.DR PO SCH ×2 (08:23→20:55)
[2019-01-15] MEDS: OXYBUTYNIN 10 MG TAB.ER.24 PO SCH (08:23)
[2019-01-15] MEDS: AMIODARONE 100 MG TAB PO SCH (09:26)
[2019-01-15] MEDS: AZITHROMYCIN 500 MG in SODIUM CHLORIDE 0.9% 250 ML IVPB SCH (09:27)
[2019-01-15] MEDS: FOLIC ACID 1 MG TAB PO SCH (12:04)
[2019-01-15] MEDS: THIAMINE 100 MG TAB PO SCH (12:04)
[2019-01-15] MEDS: MULTIVITAMINS, THERA 1 EACH TAB PO SCH (12:04)
--- NOTE | 2019-01-15 12:47 | P.PN ---
Subjective Progress Note Date: 01/15/19 On today's evaluation of 01/15/2019, the patient is stable. The patient was in the intensive care unit earlier. The patient was diagnosed having a E. coli bacteremia. The source is most likely the left lower extremity wound which turned out to be positive for E. coli and staph aureus awaiting final cultures and sensitivities. The patient is on a combination of Rocephin and Zithromax pH is on room air oxygen. Respiratory distress no cough or sputum production. She is hemodynamically stable and she is producing adequate amount of urine output. Local wound care is being done to the left lower extremity wound. Echocardiac Otoniel was within normal limits and there was some mild degree of aortic stenosis a mild to moderate degree of pulmonary hypertension with a preserved LV function. No other significant events overnight. The patient was transferred out of the intensive care unit. She is currently on room air oxygen. She is tolerating her diet. Objective - Vital Signs Vital signs: Vital Signs Temp 97.6 F 01/15/19 11:38 Pulse 65 01/15/19 11:38 Resp 20 01/15/19 11:38 BP 180/75 01/15/19 11:38 Pulse Ox 94 L 01/15/19 11:38 Intake & Output 01/14/19 01/15/19 01/15/19 18:59 06:59 18:59 Intake Total 1040 360 Output Total 1150 0 Balance -110 0 360 Weight 114.9 kg Intake: IV 540 0.9 @ 20 240 Azithromycin 500 mg In 250 Sodium Chloride 0.9% 250 ml @ 250 mls/hr IVPB DAILY [facility] Rx#:[id number] cefTRIAXone 1 gm In 50 Sodium Chloride 0.9% 50 ml @ 100 mls/hr IVPB Q24HR [facility] Rx#:[id number] Oral 500 360 Output: Urine 1150 0 Other: Voiding Method Indwelling Catheter Incontinent Incontinent # Voids 1 # Bowel Movements 1 - Exam GENERAL EXAM: Alert, comfortable in no apparent distress. On 3 L nasal cannula. HEAD: Normocephalic. EYES: Normal reaction of pupils, equal size. NOSE: Clear with pink turbinates. THROAT: No erythema or exudates. NECK: No masses, no JVD. CHEST: No chest wall deformity. LUNGS: Equal air entry with crackles in the bilateral posterior bases. CVS: S1 and S2 normal with an audible murmur,irregular rhythm. ABDOMEN: No hepatosplenomegaly, normal bowel sounds, no guarding or rigidity. SPINE: No scoliosis or deformity SKIN: No rashes CENTRAL NERVOUS SYSTEM: Alert and oriented 3. No focal deficits, tone is normal in all 4 extremities. EXTREMITIES: There is no peripheral edema. No clubbing, no cyanosis. Peripheral pulses are intact. - Labs CBC & Chem 7: 01/15/19 05:42 01/15/19 05:42 Labs: Abnormal Lab Results - Last 24 Hours (Table) 01/15/19 01/15/19 01/15/19 Range/Units 05:42 05:42 05:42 RBC 2.69 L (3.80-5.40) m/uL Hgb 8.7 L (11.4-16.0) gm/dL Hct 27.8 L (34.0-46.0) % MCV 103.3 H (80.0-100.0) fL RDW 17.3 H (11.5-15.5) % Plt Count 80 L (150-450) k/uL PT 24.1 H (9.0-12.0) sec INR 2.5 H (<1.2) Chloride 109 H (98-107) mmol/L BUN 35 H (7-17) mg/dL Calcium 8.2 L (8.4-10.2) mg/dL Microbiology - Last 24 Hours (Table) 01/12/19 16:50 Gram Stain - Final Leg - Left Wound Culture - Preliminary Escherichia coli Presumptive MRSA Assessment and Plan Plan: #1 Dyspnea secondary to suspected left lower lobe pneumonia/sepsis. Clinically improved and the patient is currently room air oxygen and the patient has no respiratory distress. #2 Acute hypoxic respiratory failure secondary to above, recovered. #3 E. coli sepsis secondary to left lower extremity wound #4 left lower lobe pneumonia, improving and recovered #5 Hypotension requiring pressor support secondary to above, recovered #6 Atrial fibrillation with a controlled ventricular response, on oral Cordarone and warfarin. Therapeutic INR at 2.5 #7 History of hypertension. #8 Hyperlipidemia. #9 Osteoarthritis. #10 Heart murmur. No significant valvular abnormalities and echocardiogram with a preserved LV function #11 Anemia, chronic #12 chronic, cytopenia Plan Continue wound care. Continue antibiotic coverage. Pulmonary status is stable. The patient on room air oxygen. Hemodynamically stable. No active pulmonary or critical care issue on this patient at this point in time. Presently treatment essentially medically and supportive. Continue IV Rocephin. Cardiac rhythm is stable. Patient on diuretics. The patient is also on antibiotic ventilation with warfarin. INR therapeutic for now.
--- NOTE | 2019-01-15 15:07 | P.PN ---
Subjective Progress Note Date: 01/15/19 This is a very pleasant 73-year-old female patient who follows with Dr. Bhatia as her primary care physician. She has a history of atrial fibrillation anticoagulated with warfarin, hypertension, congestive heart failure, hyperlipidemia. No previous pulmonary issues. Lifelong nonsmoker. She presented here to the emergency room last evening with complaints of increasing shortness of breath, dyspnea on exertion, worsening shortness of breath when lying flat. Denies any fever, chills, night sweats. No cough or congestion. Chest x-ray revealed evidence of congestive heart failure with pleural effus ions. Pulmonary blood culture positive for gram-negative bacilli. Her analysis wit weight is down 5 kg today. h moderate blood, positive nitrites and many bacteria. Urine culture pending. Peak lactic acid 3.8 on admission. Patient was in the intensive care unit because of hypotension. Seen and examined on the telemetry unit today, overall doing well. Blood cell count 5.8, hemoglobin 8.7, platelet count 80, INR 2.5. Sodium 139, potassium 4.4, BUN 35 and creatinine 1.0. Objective - Vital Signs Vital signs: Vital Signs Temp 97.6 F 01/15/19 11:38 Pulse 65 01/15/19 11:38 Resp 20 01/15/19 11:38 BP 180/75 01/15/19 11:38 Pulse Ox 94 L 01/15/19 11:38 Intake & Output 01/14/19 01/15/19 01/15/19 18:59 06:59 18:59 Intake Total 1040 900 Output Total 1150 0 Balance -110 0 900 Weight 114.9 kg Intake: IV 540 300 0.9 @ 20 240 Azithromycin 500 mg In 250 250 Sodium Chloride 0.9% 250 ml @ 250 mls/hr IVPB DAILY [facility] Rx#:[id number] cefTRIAXone 1 gm In 50 50 Sodium Chloride 0.9% 50 ml @ 100 mls/hr IVPB Q24HR [facility] Rx#:[id number] Oral 500 600 Output: Urine 1150 0 Other: Voiding Method Indwelling Catheter Incontinent Incontinent # Voids 1 # Bowel Movements 1 - Exam GENERAL EXAM: Alert, comfortable in no apparent distress. On 3 L nasal cannula. HEAD: Normocephalic. EYES: Normal reaction of pupils, equal size. NOSE: Clear with pink turbinates. THROAT: No erythema or exudates. NECK: No masses, no JVD. CHEST: No chest wall deformity. LUNGS: Equal air entry with crackles in the bilateral posterior bases. CVS: S1 and S2 normal with an audible murmur,irregular rhythm. ABDOMEN: No hepatosplenomegaly, normal bowel sounds, no guarding or rigidity. SPINE: No scoliosis or deformity SKIN: No rashes CENTRAL NERVOUS SYSTEM: Alert and oriented 3. No focal deficits, tone is normal in all 4 extremities. EXTREMITIES: There is no peripheral edema. No clubbing, no cyanosis. Peripheral pulses are intact. - Labs CBC & Chem 7: 01/15/19 05:42 01/15/19 05:42 Labs: Abnormal Lab Results - Last 24 Hours (Table) 01/15/19 01/15/19 01/15/19 Range/Units 05:42 05:42 05:42 RBC 2.69 L (3.80-5.40) m/uL Hgb 8.7 L (11.4-16.0) gm/dL Hct 27.8 L (34.0-46.0) % MCV 103.3 H (80.0-100.0) fL RDW 17.3 H (11.5-15.5) % Plt Count 80 L (150-450) k/uL PT 24.1 H (9.0-12.0) sec INR 2.5 H (<1.2) Chloride 109 H (98-107) mmol/L BUN 35 H (7-17) mg/dL Calcium 8.2 L (8.4-10.2) mg/dL Microbiology - Last 24 Hours (Table) 01/12/19 16:50 Gram Stain - Final Leg - Left Wound Culture - Preliminary Escherichia coli Presumptive MRSA Assessment and Plan Plan: Impression and plan: #1 Dyspnea secondary to an acute exacerbation of diastolic congestive heart failure. #2 Acute hypoxic respiratory failure secondary to above. #3 bacteremia with gram-negative bacilli suspect secondary to urinary tract infection. #4 Urinary tract infection, cultures pending. #5 Hypotension #6 Atrial fibrillation , chronic persistent with a controlled ventricular response, on oral Cordarone #7 History of hypertension. #8 Hyperlipidemia. #9 Osteoarthritis. #10 anemia Plan From cardiology's perspective, we'll recommend to continue the patient on her current medications. We will follow her along with you now on an as-needed basis only, please don't hesitate to call if you have any questions. DNP note has been reviewed, I agree with a documented findings and plan of care. Patient was seen and examined.
[2019-01-15 15:11] VITALS: BMI 40.8
--- NOTE | 2019-01-15 15:48 | PN ---
PROGRESS NOTE DATE OF SERVICE: 01/15/2019 This 73-year-old woman was admitted with CHF acute exacerbation,also had E coli. Subsequently:, presented with MRSA from the wound. The patient is on broad-spectrum antibiotics the patient the patient developed vascular surgery, Infectious Disease and as well as Pulmonary at this time PT OT evaluated the patient for possible ECF rehab. PAST MEDICAL HISTORY: Reviewed. REVIEW OF SYSTEMS: CARDIOVASCULAR: No angina. RESPIRATION: S1, S2. As mentioned earlier. GI: No nausea. : No dysuria. NERVOUS SYSTEM: No numbness or weakness. CURRENT MEDICATIONS ARE: 1. Tylenol p.r.n. 2. Cordarone 100 mg daily. 3. Lipitor 40 mg. 4. Synthroid 100 mg. 5. Coreg 3.1 mg b.i.d. 6. Rocephin 1 g daily. 7. Cymbalta 60 mg b.i.d. 8. Folic acid 1 mg. 9. Lasix 40 mg b.i.d. 10.Multivitamins. 11.Ditropan 20 mg. 12.Vitamin B1 one hundred mg p.o. daily. PHYSICAL EXAMINATION: Alert and oriented x3. Pulse 65, blood pressure 140/87, respiration 20, temperature 97.2, pulse ox 94% on room air. Conjunctivae are normal. Oral mucosa moist. Neck is no jugular venous distention. No lymph node enlargement. CARDIOVASCULAR SYSTEM: S1, S2, muffled. RESPIRATORY: Breath sounds diminished at the bases. A few scattered rhonchi, no crackles. ABDOMEN: Soft, nontender. No mass palpable. LEGS: No edema, no swelling. NERVOUS SYSTEM: Higher functions as mentioned earlier, moves all 4 limbs. No focal deficits. LYMPHATICS: No lymph node enlargement in the neck or axillae. SKIN: No ulcer, rash, bleeding. LABS: WBC 5.8, hemoglobin is 8.7, creatinine is 1.20. On admission, creatinine was 0.77. ASSESSMENT: 1. Congestive heart failure acute exacerbation, acute on chronic diastolic dysfunction with acute hypoxic respiratory failure, present on admission. 2. Escherichia coli sepsis with severe sepsis, septic shock and hypotension. 3. Escherichia coli and methicillin resistant Staphylococcus aureus from the wound. 4. Gait dysfunction. 5. Urinary tract infection. 6. Hypotension. 7. Atrial fibrillation. 8. History of hyperlipidemia. 9. Obesity with body mass index of 42.5. 10.Social issues. 11.History of degenerative joint disease. 12.FULL CODE. RECOMMENDATION: Recommend to continue current management and symptomatic treatment. Otherwise, will continue the antibiotics. Closely follow with multiple consultants. PT, OT evaluation, possible ECF rehab. 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 Prognosis guarded. Further recommendations to follow. MMODL / IJN: [id number] /
--- NOTE | 2019-01-15 16:12 | CDI ---
Documentation Clarification Form Date: 01/15/2019 3:41:42 PM From: Mimi Siddiqi RN, CCDS Admit Date: 01/11/2019 10:54:00 PM Patient Name: Niesha Diana Visit Number: [id number] Discharge Date: ATTENTION: The Clinical Documentation Specialists (CDI) and [facility] Coding Staff appreciate your assistance in clarifying documentation. Please respond to the clarification below the line at the bottom and electronically sign. The CDI & [facility] Coding staff will review the response and follow-up if needed. Please note: Queries are made part of the Legal Health Record. If you have any questions, please contact the author of this message via ITS. Dr. Puneet Julian The patient presented with complaints of increasing shortness of breath, dyspnea on exertion. History/Risk Factors: Atrial Fibrillation, Congestive heart failure, Hypertension Clinical Indicators: 73 year-old female with shortness of breath. She was found to be hypotensive and subsequently transferred to ICU. Consult and progress notes 01/12/19 (and on going) Hypotension requiring pressor support secondary to bacteremia with gram-negative bacilli suspect secondary to uti WBC 6.6, 12.2, 13.9 Lactic acid: 2.2, 3.8, 3.3 Blood cultures: gram-negative bacilli (Echerichia coli) Vitals signs on admission 149/107 70 22 77 % RA: 113/62 70 24 91 % 2/L NC Vital signs 01/12/19: @ 01:20 70/45 66 18 97 % 4/L NC, 66/40 65 138 95 % 3/L NC Treatment: Telemetry monitoring/ICU Norepinephrine at 8 mcg/m Rocephin IV Zithromycin IV Monitor Labs: CBC, Lytes, In your professional opinion, please clarify if these findings signify one of the following conditions: sepsis with septic shock Septic Shock Other, please specify Unable to determine SIRS Criteria (2 or more of the following may indicate SIRS): -Temperature < 96.8F (36C) or > 101.0F (38.3C) -Heart Rate > 90 bpm -Respiratory Rate > 20 breaths/min or PaCO2 < 32 mmHg -White Blood Cell Count > 12,000 or < 4,000 cells/mm3 or > 10% bands -Lactate >2.0 mmol/L (>4.0 is equivalent to septic shock) (Last Revision: November 2017) MTDD
[2019-01-15] MEDS: LISINOPRIL 20 MG TAB PO SCH (16:59)
[2019-01-15] MEDS ORDERED: VANCOMYCIN IV PER PHARMACY 1 EACH MISC MISCELLANE PRN (22:59)
--- NOTE | 2019-01-15 23:13 | P.CONS ---
History of Present Illness - Reason for Consult Consult date: 01/15/19 - Chief Complaint Progressive dyspnea - History of Present Illness 73 -year-old female presents to Hospital for evaluation of her progressive shortness of breath. It was worsening over several days, despite her attempts to improve her activity level by some exercising at home she just became more and more short of breath. She had dyspnea with exertion or orthopnea. With her known history of underlying coronary artery disease atrial fibrillation and cardiac murmur she presented to the emergency center where she was found evidence of significant dyspnea and she was admitted. The very short period of time her status rapidly changed and she required transfer to intensive care unit where she was treated aggressively including with vasopressor therapy because of hypotension. With diuresis and antibiotic therapy she rapidly improved. She was now moved out of intensive care unit but there is evidence of possible culture with at the infectious diseases consultation was requested. Review of Systems HEENT:Denies headache or acute visual change. Denies sinus or mouth discomforts. Denies neck stiffness or pain. Denies significant oral cavity nelly n. Denies difficulty on swallowing. Lungs: As per the HPI progressive shortness of breath, sputum production or hemoptysis Cardiovascular: No chest pain but had progressive shortness of breath, dyspnea on exertion, orthopnea but no syncope Gastrointestinal:Denies nausea, vomiting, diarrhea, constipation, hematemesis, melena, hematochezia. No no significant change of bowel habit noticed. Musculoskeletal: denies significant myalgias or arthralgias. No new joint swelling. Denies new back pain. Skin: Denies new rash or lesions. No new ulcers or wounds are related.. Neuro: Denies headache or visual change. Denies any new onset weakness or difficulty with ambulation. Denies falls or seizures. Psychiatric: She was anxious when she could not breathe Endocrine: Profound fatigue weight did increase Past Medical History Past Medical History: Atrial Fibrillation, Heart Failure, CVA/TIA, Hyperlipidemia, Hypertension, Liver Disease, Osteoarthritis (OA) Additional Past Medical History / Comment(s): TIA, heart murmur, poor circulation in legs, swelling in lower legs, hepatitis age 14, urinary leakage/incontinence History of Any Multi-Drug Resistant Organisms: None Reported Past Surgical History: Appendectomy, Cholecystectomy, Hysterectomy, Orthopedic Surgery Additional Past Surgical History / Comment(s): Bilateral cataracts, arthroscopy both knees, D&C, jose d, keo cataracts Past Anesthesia/Blood Transfusion Reactions: No Reported Reaction, Motion Sickness Additional Past Anesthesia/Blood Transfusion Reaction / Comm: stated has never recieved blood Past Psychological History: No Psychological Hx Reported Smoking Status: Never smoker Past Alcohol Use History: None Reported Past Drug Use History: None Reported - Past Family History Sister(s) Family Medical History: Cancer Brother(s) Family Medical History: Cancer Mother Family Medical History: Dementia, Diabetes Mellitus Additional Family Medical History / Comment(s): age 89 Father Additional Family Medical History / Comment(s): age 70's from heart attack Medications and Allergies Home Medications and Allergies Comment(s): Current Medications Acetaminophen (Tylenol Tab) 325 mg PO Q4HR PRN PRN Reason: Fever and/ or Pain Last Admin: 01/13/19 23:19 Dose: 325 mg Documented by: Amiodarone HCl (Cordarone) 100 mg PO DAILY [facility] Last Admin: 01/15/19 09:26 Dose: 100 mg Documented by: Atorvastatin Calcium (Lipitor) 40 mg PO DAILY [facility] Last Admin: 01/15/19 08:23 Dose: 40 mg Documented by: Carvedilol (Coreg) 3.125 mg PO BID-W/MEALS [facility] Last Admin: 01/15/19 16:59 Dose: 3.125 mg Documented by: Duloxetine HCl (Cymbalta) 60 mg PO BID [facility] Last Admin: 01/15/19 20:55 Dose: 60 mg Documented by: Folic Acid (Folic Acid) 1 mg PO DAILY@1200 [facility] Last Admin: 01/15/19 12:04 Dose: 1 mg Documented by: Furosemide (Lasix) 40 mg PO BID [facility] Last Admin: 01/15/19 20:55 Dose: 40 mg Documented by: Ceftriaxone Sodium 1 gm/ (Sodium Chloride) 50 mls @ 100 mls/hr IVPB Q24HR [facility] Last Admin: 01/15/19 08:24 Dose: 100 mls/hr Documented by: Vancomycin HCl 2,000 mg/ (Sodium Chloride) 500 mls @ 167 mls/hr IVPB Q24H [facility] Lisinopril (Zestril) 20 mg PO DAILY [facility] Last Admin: 01/15/19 16:59 Dose: 20 mg Documented by: Multivitamins (Theragran) 1 each PO DAILY@1200 [facility] Last Admin: 01/15/19 12:04 Dose: 1 each Documented by: Oxybutynin Chloride (Ditropan Xl) 10 mg PO DAILY [facility] Last Admin: 01/15/19 08:23 Dose: 10 mg Documented by: Thiamine HCl (Vitamin B-1) 100 mg PO DAILY@1200 [facility] Last Admin: 01/15/19 12:04 Dose: 100 mg Documented by: Home Medications Medication Instructions Recorded Confirmed Type DULoxetine HCL 60 mg PO BID 10/20/14 01/12/19 History Aspirin 81 mg PO DAILY 06/08/15 01/12/19 History Lovastatin [Mevacor] 40 mg PO DAILY 08/31/16 01/12/19 History Carvedilol [Coreg] 3.125 mg PO BID 10/03/16 01/12/19 History Oxybutynin Chloride [Ditropan XL] 10 mg PO DAILY 10/03/16 01/12/19 History Acetaminophen Tab [Tylenol] 325 mg PO Q4H PRN 09/16/18 01/12/19 History Amiodarone [Cordarone] 100 mg PO DAILY 01/12/19 01/12/19 History Lisinopril [Zestril] 20 mg PO DAILY 01/12/19 01/12/19 History Warfarin [Coumadin] 5 mg PO SUMOTUTHFR 01/12/19 01/12/19 History Warfarin [Coumadin] 7.5 mg PO WESA 01/12/19 01/12/19 History Allergies Allergy/AdvReac Type Severity Reaction Status Date / Time No Known Allergies Allergy Verified 09/16/18 10:38 Physical Exam Vitals: Vital Signs Temp Pulse Resp BP BP Pulse Ox 01/15/19 15:29 98.2 F 67 20 147/65 92 L 01/15/19 11:38 97.6 F 65 20 180/75 94 L 01/15/19 08:00 98 F 66 20 200/91 93 L 01/15/19 04:00 71 18 201/77 93 L 01/15/19 00:00 98.6 F 70 18 141/63 97 Intake and Output 01/15/19 01/15/19 01/15/19 06:59 14:59 22:59 Intake Total 900 240 Output Total 400 Balance 900 -160 Intake: IV 300 Azithromycin 500 mg In 250 Sodium Chloride 0.9% 250 ml @ 250 mls/hr IVPB DAILY [facility] Rx#:[id number] cefTRIAXone 1 gm In 50 Sodium Chloride 0.9% 50 ml @ 100 mls/hr IVPB Q24HR [facility] Rx#:[id number] Oral 600 240 Output: Urine 400 Other: Voiding Method Incontinent Incontinent Incontinent # Voids 1 2 # Bowel Movements 1 Weight 114.9 kg 114.9 kg 73 woman who relates she's feeling better HEENT: Anicteric conjunctiva are pink and moist nasal mucosa grossly intact without significant lesions, there is no thrush. Neck: The neck is supple without significant lymphadenopathy or thyromegaly. Lungs: Symmetrical air entry is noted expiratory wheezes few basilar crackles are noted Heart: Regular rate and rhythm with an audible S1-S2, no S3 no S4. There is no significant murmur click or rub, PMI was nondisplaced. Abdomen: Positive bowel sounds soft and nontender without palpable masses or organomegaly. There was no guarding or rebound. Extremities: The upper extremities have excellent pulses they are symmetric, no significant petechiae or telangiectasia. No splinter hemorrhages were noted. The left lower extremity reveals evidence of the edema and ulceration. No ulcer to the right lower extremity the site is tender. Neuro: Awake alert oriented to person place and time. There are no acute new gross focal sensory motor deficits. Results CBC & Chem 7: 01/15/19 05:42 01/15/19 05:42 Labs: Abnormal Lab Results - Last 24 Hours (Table) 01/15/19 01/15/19 01/15/19 Range/Units 05:42 05:42 05:42 RBC 2.69 L (3.80-5.40) m/uL Hgb 8.7 L (11.4-16.0) gm/dL Hct 27.8 L (34.0-46.0) % MCV 103.3 H (80.0-100.0) fL RDW 17.3 H (11.5-15.5) % Plt Count 80 L (150-450) k/uL PT 24.1 H (9.0-12.0) sec INR 2.5 H (<1.2) Chloride 109 H (98-107) mmol/L BUN 35 H (7-17) mg/dL Calcium 8.2 L (8.4-10.2) mg/dL Microbiology - Last 24 Hours (Table) 01/12/19 16:50 Anaerobic Culture - Final Leg - Left Anaerobic Gram Positive Cocci 01/12/19 16:50 Gram Stain - Preliminary Leg - Left Wound Culture - Preliminary Escherichia coli Methicillin resist S. aureus Laboratory Results WBC 5.8 k/uL (3.8-10.6) 01/15/19 05:42 RBC 2.69 m/uL (3.80-5.40) L 01/15/19 05:42 Hgb 8.7 gm/dL (11.4-16.0) L 01/15/19 05:42 Hct 27.8 % (34.0-46.0) L 01/15/19 05:42 MCV 103.3 fL (80.0-100.0) H 01/15/19 05:42 MCH 32.2 pg (25.0-35.0) 01/15/19 05:42 MCHC 31.2 g/dL (31.0-37.0) 01/15/19 05:42 RDW 17.3 % (11.5-15.5) H 01/15/19 05:42 Plt Count 80 k/uL (150-450) L 01/15/19 05:42 Neutrophils % 68 % 01/15/19 05:42 Neutrophils % (Manual) 60 % 01/12/19 03:17 Band Neutrophils % 30 % 01/12/19 03:17 Lymphocytes % 19 % 01/15/19 05:42 Lymphocytes % (Manual) 5 % 01/12/19 03:17 Monocytes % 8 % 01/15/19 05:42 Monocytes % (Manual) 5 % 01/12/19 03:17 Eosinophils % 0 % 01/15/19 05:42 Basophils % 0 % 01/15/19 05:42 Neutrophils # 3.9 k/uL (1.3-7.7) 01/15/19 05:42 Neutrophils # (Manual) 10.90 k/uL (1.3-7.7) H 01/12/19 03:17 Lymphocytes # 1.1 k/uL (1.0-4.8) 01/15/19 05:42 Lymphocytes # (Manual) 0.61 k/uL (1.0-4.8) L 01/12/19 03:17 Monocytes # 0.4 k/uL (0-1.0) 01/15/19 05:42 Monocytes # (Manual) 0.61 k/uL (0-1.0) 01/12/19 03:17 Eosinophils # 0.0 k/uL (0-0.7) 01/15/19 05:42 Basophils # 0.0 k/uL (0-0.2) 01/15/19 05:42 Nucleated RBCs 0 /100 WBC (0-0) 01/12/19 03:17 Manual Slide Review Performed 01/15/19 05:42 Toxic Granulation Present 01/12/19 03:17 Large Platelets Present 01/15/19 05:42 Hypochromasia Slight 01/15/19 05:42 Anisocytosis Slight 01/15/19 05:42 Macrocytosis Moderate 01/15/19 05:42 PT 24.1 sec (9.0-12.0) H 01/15/19 05:42 INR 2.5 (<1.2) H 01/15/19 05:42 APTT 29.7 sec (22.0-30.0) 01/11/19 21:31 Sodium 139 mmol/L (137-145) 01/15/19 05:42 Potassium 4.4 mmol/L (3.5-5.1) 01/15/19 05:42 Chloride 109 mmol/L (98-107) H 01/15/19 05:42 Carbon Dioxide 30 mmol/L (22-30) 01/15/19 05:42 Anion Gap 0 mmol/L 01/15/19 05:42 BUN 35 mg/dL (7-17) H 01/15/19 05:42 Creatinine 1.02 mg/dL (0.52-1.04) 01/15/19 05:42 Est GFR (CKD-EPI)AfAm 63 (>60 ml/min/1.73 sqM) 01/15/19 05:42 Est GFR (CKD-EPI)NonAf 55 (>60 ml/min/1.73 sqM) 01/15/19 05:42 Glucose 75 mg/dL (74-99) 01/15/19 05:42 POC Glucose (mg/dL) 93 mg/dL (75-99) 01/14/19 17:23 POC Glu [employer] Estate Portfolio Manager ID Mily Oliva 01/14/19 17:23 Lactic Ac Sepsis Rflx Y 01/12/19 03:43 Plasma Lactic Acid [place] 3.3 mmol/L (0.7-2.0) H* 01/12/19 06:17 Calcium 8.2 mg/dL (8.4-10.2) L 01/15/19 05:42 Total Bilirubin 1.9 mg/dL (0.2-1.3) H 01/12/19 03:17 AST 60 U/L (14-36) H 01/12/19 03:17 ALT 15 U/L (9-52) 01/12/19 03:17 Alkaline Phosphatase 122 U/L (38-126) 01/12/19 03:17 Troponin I 0.165 ng/mL (0.000-0.034) H* 01/12/19 09:09 NT-Pro-B Natriuret Pep 1060 pg/mL 01/11/19 21:31 Total Protein 6.1 g/dL (6.3-8.2) L 01/12/19 03:17 Albumin 1.9 g/dL (3.5-5.0) L 01/12/19 03:17 TSH 1.180 mIU/L (0.465-4.680) 01/12/19 03:17 Urine Color Light Brown 01/11/19 23:48 Urine Appearance Cloudy (Clear) H 01/11/19 23:48 Urine pH 5.0 (5.0-8.0) 01/11/19 23:48 Ur Specific [place] 1.012 (1.001-1.035) 01/11/19 23:48 Urine Protein Trace (Negative) H 01/11/19 23:48 Urine Glucose (UA) Negative (Negative) 01/11/19 23:48 Urine Ketones Negative (Negative) 01/11/19 23:48 Urine Blood Moderate (Negative) H 01/11/19 23:48 Urine Nitrite Positive (Negative) H 01/11/19 23:48 Urine Bilirubin Negative (Negative) 01/11/19 23:48 Urine Urobilinogen <2.0 mg/dL (<2.0) 01/11/19 23:48 Ur Leukocyte Esterase Negative (Negative) 01/11/19 23:48 Urine RBC 16 /hpf (0-5) H 01/11/19 23:48 Urine WBC 1 /hpf (0-5) 01/11/19 23:48 Urine Bacteria Many /hpf (None) H 01/11/19 23:48 Hyaline Casts 11 /lpf (0-2) H 01/11/19 23:48 Urine Mucus Rare /hpf (None) H 01/11/19 23:48 Microbiology 01/12/19 16:50 Leg - Left Anaerobic Culture - Final Anaerobic Gram Positive Cocci 01/12/19 16:50 Leg - Left Gram Stain - Preliminary 01/12/19 16:50 Leg - Left Wound Culture - Preliminary Escherichia coli Methicillin resist S. aureus 01/12/19 07:56 Urine,Catheterized Urine Culture - Final 01/11/19 21:31 Blood Blood Culture Gram Stain - Final 01/11/19 21:31 Blood Blood Culture - Final Escherichia coli 01/11/19 21:31 Blood Blood Culture - Final Please clarify that the first dose of Rocephin was given on 517 at 2259. Urine culture is obtained on 518 at approximately 9:00 in the morning. Assessment and Plan (1) Congestive heart failure Current Visit: Yes Status: Acute Code(s): I50.9 - HEART FAILURE, UNSPECIFIED SNOMED Code(s): 47506408 (2) OLGA (acute kidney injury) Current Visit: No Status: Acute Code(s): N17.9 - ACUTE KIDNEY FAILURE, UNSPECIFIED SNOMED Code(s): 80137736 (3) Atrial fibrillation with RVR Current Visit: No Status: Acute Code(s): I48.91 - UNSPECIFIED ATRIAL FIBRILLATION SNOMED Code(s): 813453437395054 (4) Wound infection Current Visit: Yes Status: Acute Code(s): T14.8XXA - OTHER INJURY OF UNSPECIFIED BODY REGION, INITIAL ENCOUNTER; L08.9 - LOCAL INFECTION OF THE SKIN AND SUBCUTANEOUS TISSUE, UNSP SNOMED Code(s): 69649560 (5) Bacteremia, escherichia coli Narrative/Plan: 73-year-old female who is a complex past medical history regarding her cardiovascular disease, congestive heart failure, atrial fibrillation with rapid ventricular response and cardiac murmur presented with progressive shortness of breath. The patient did have rapid decline of her status and did have a short stay in the intensive care unit including using vasopressor therapy. She is now much improved after diuresis and start Antibiotic therapy. The patient's wound culture has evidence of E. coli as well as a staph species which is likely MRSA. Blood cultures has evidence of E. coli. Of note the patient's urine culture was drawn within 9 hours after her dose of antibiotic therapy, consequently it is possible that the urinary infection is the etiology of her sepsis given the markedly abnormal urinalysis that was obtained. However the wound could also be the source of sepsis. She's been treated with Rocephin which is adequate for the E. coli that has been isolated however laboratories relating likely MRSA because he vancomycin will be added now that she is had marked improvement of acute kidney injury. We'll monitor her progress determine options for outpatient therapy when she has improved further. Local wound care with emily has been requested this can be changed daily. Current Visit: Yes Status: Acute Code(s): R78.81 - BACTEREMIA SNOMED Code(s): 417959808860
[2019-01-16] MEDS ORDERED: VANCOMYCIN 2,000 MG in SODIUM CHLORIDE 0.9% 500 ML 500 ML IVPB SCH ×2
[2019-01-16] MEDS: CARVEDILOL 3.125 MG TAB PO SCH ×2 (06:47→17:37)
[2019-01-16 07:12] LABS: INR 2.2 (<1.2); Prothrombin Time 21.7 sec (9.0-12.0)
[2019-01-16 07:20] LABS: Calcium 8.2 mg/dL (8.4-10.2); Potassium 4.3 mmol/L (3.5-5.1)
[2019-01-16 07:37] LABS: Anisocytosis Slight; Basophils % (A) 1 %; Eosinophils % (A) 0 %; HGB 9.2 gm/dL (11.4-16.0); Hypochromasia Slight; Lymphocytes # (A) 1.1 k/uL (1.0-4.8); Lymphocytes % (A) 19 %; MCH 33.1 pg (25.0-35.0); MCHC 31.7 g/dL (31.0-37.0); MCV 104.4 fL (80.0-100.0); Macrocytosis Moderate; Mean Platelet Volume 8.4; Monocytes # (A) 0.5 k/uL (0-1.0); Monocytes % (A) 9 %; Neutrophils # (A) 3.8 k/uL (1.3-7.7); Neutrophils % (A) 67 %; RBC 2.78 m/uL (3.80-5.40); RDW 17.9 % (11.5-15.5); WBC 5.7 k/uL (3.8-10.6)
[2019-01-16 07:51] LABS: Platelet Count 77 k/uL (150-450)
[2019-01-16 08:41] LABS: Poikilocytosis (M) Present; Target Cells Present
[2019-01-16] MEDS: ATORVASTATIN 40 MG TAB PO SCH (08:50)
[2019-01-16] MEDS: DULoxetine HCL 60 MG CAPSULE.DR PO SCH ×2 (08:50→20:28)
[2019-01-16] MEDS: AMIODARONE 100 MG TAB PO SCH (08:50)
[2019-01-16] MEDS: LISINOPRIL 20 MG TAB PO SCH (08:50)
[2019-01-16] MEDS: FUROSEMIDE 40 MG TAB PO SCH ×2 (08:50→20:28)
[2019-01-16] MEDS: OXYBUTYNIN 10 MG TAB.ER.24 PO SCH (08:50)
[2019-01-16] MEDS ORDERED: AZITHROMYCIN 500 MG TAB PO SCH (09:00)
[2019-01-16] MEDS: FOLIC ACID 1 MG TAB PO SCH (11:55)
[2019-01-16] MEDS: THIAMINE 100 MG TAB PO SCH (11:55)
[2019-01-16] MEDS: MULTIVITAMINS, THERA 1 EACH TAB PO SCH (11:55)
--- NOTE | 2019-01-16 15:50 | P.PN ---
Subjective Progress Note Date: 01/16/19 Principal diagnosis: Dyspnea secondary to suspected left lower lobe pneumonia/sepsis, clinically improved, E. coli sepsis secondary to left lower extremity wound On today's evaluation of 01/15/2019, the patient is stable. The patient was in the intensive care unit earlier. The patient was diagnosed having a E. coli bacteremia. The source is most likely the left lower extremity wound which turned out to be positive for E. coli and staph aureus awaiting final cultures and sensitivities. The patient is on a combination of Rocephin and Zithromax pH is on room air oxygen. Respiratory distress no cough or sputum production. She is hemodynamically stable and she is producing adequate amount of urine output. Local wound care is being done to the left lower extremity wound. Echocardiac Otoniel was within normal limits and there was some mild degree of aortic stenosis a mild to moderate degree of pulmonary hypertension with a preserved LV function. No other significant events overnight. The patient was transferred out of the intensive care unit. She is currently on room air oxygen. She is tolerating her diet. On 01/16/2019 patient seen in follow-up on selective care unit, she is awake and alert, she sits up in the recliner, in no acute distress, denies any shortness of breath, lung sounds are essentially clear to auscultation. Patient is on room air. No fever or chills, no cough or congestion, his labs have been reviewed, showed white blood cell count of 5.7, hemoglobin of 9.2, INR 2.2, serum sodium of 140, potassium is 4.3, chloride is 108, CO2 31, BUN of 36 creatinine is 1.01. Left lower extremity is covered with a dressing, ID service is following, in regards to left lower extremity wound. Patient denies any specific complaints, and the plan for her is to go to a retirement facility likely in the next 24 hours. Clinically patient is stable. Tolerating oral intake. Wound cultures were positive for MRSA, E. coli. Initial blood culture from 01/11/2019 was positive for E. coli, and follow-up culture from 01/14/2019 did not show any growth. Objective - Vital Signs Vital signs: Vital Signs Temp 98.3 F 01/16/19 08:00 Pulse 63 01/16/19 11:24 Resp 18 01/16/19 11:24 BP 159/69 01/16/19 11:13 Pulse Ox 99 01/16/19 11:13 Intake & Output 01/15/19 01/16/19 01/16/19 18:59 06:59 18:59 Intake Total 1140 240 222 Output Total 400 Balance 1140 -160 222 Weight 114.9 kg Intake: IV 300 240 0.9 @ 20 240 Azithromycin 500 mg In 250 Sodium Chloride 0.9% 250 ml @ 250 mls/hr IVPB DAILY FRANKI Rx#:[id number] cefTRIAXone 1 gm In 50 Sodium Chloride 0.9% 50 ml @ 100 mls/hr IVPB Q24HR FRANKI Rx#:[id number] Oral 840 222 Output: Urine 400 Other: Voiding Method Incontinent Incontinent Toilet Incontinent # Voids 1 2 1 # Bowel Movements 1 - Exam GENERAL EXAM: Alert, pleasant, 73-year-old obese white female, sitting up in the recliner, on room air comfortable in no apparent distress. HEAD: Normocephalic/atraumatic. EYES: Normal reaction of pupils, equal size. Conjunctiva pink, sclera white. NOSE: Clear with pink turbinates. THROAT: No erythema or exudates. NECK: No masses, no JVD, no thyroid enlargement, no adenopathy. CHEST: No chest wall deformity. Symmetrical expansion. LUNGS: Equal air entry with no crackles, wheeze, rhonchi or dullness. CVS: Regular rate and rhythm, normal S1 and S2, no gallops, no murmurs, no rubs ABDOMEN: Soft, nontender. No hepatosplenomegaly, normal bowel sounds, no guarding or rigidity. EXTREMITIES: No clubbing, chronic venous stasis changes present to bilateral lower extremities, nonpitting edema, and left lower extremity venous stasis ulcers covered with dressings, no cyanosis, 2+ pulses and upper and lower extremities. MUSCULOSKELETAL: Muscle strength and tone normal. SPINE: No scoliosis or deformity SKIN: No rashes CENTRAL NERVOUS SYSTEM: Alert and oriented -3. No focal deficits, tone is normal in all 4 extremities. PSYCHIATRIC: Alert and oriented -3. Appropriate affect. Intact judgment and insight. - Labs CBC & Chem 7: 01/16/19 06:51 01/16/19 06:51 Labs: Abnormal Lab Results - Last 24 Hours (Table) 01/16/19 01/16/19 01/16/19 Range/Units 06:51 06:51 06:51 RBC 2.78 L (3.80-5.40) m/uL Hgb 9.2 L (11.4-16.0) gm/dL Hct 29.0 L (34.0-46.0) % MCV 104.4 H (80.0-100.0) fL RDW 17.9 H (11.5-15.5) % Plt Count 77 L (150-450) k/uL PT 21.7 H (9.0-12.0) sec INR 2.2 H (<1.2) Chloride 108 H (98-107) mmol/L Carbon Dioxide 31 H (22-30) mmol/L BUN 36 H (7-17) mg/dL Calcium 8.2 L (8.4-10.2) mg/dL Microbiology - Last 24 Hours (Table) 01/14/19 21:18 Blood Culture - Preliminary Blood No Growth after 24 hours 01/12/19 16:50 Anaerobic Culture - Final Leg - Left Anaerobic Gram Positive Cocci 01/12/19 16:50 Gram Stain - Preliminary Leg - Left Wound Culture - Preliminary Escherichia coli Methicillin resist S. aureus Assessment and Plan Plan: Assessment: #1 Dyspnea secondary to suspected left lower lobe pneumonia/sepsis. Clinically improved and the patient is currently room air oxygen and the patient has no respiratory distress. #2 Acute hypoxic respiratory failure secondary to above, recovered. #3 E. coli and MRSA sepsis secondary to left lower extremity wound #4 left lower lobe pneumonia, improving and recovered #5 Hypotension requiring pressor support secondary to above, recovered #6 Atrial fibrillation with a controlled ventricular response, on oral Cordarone and warfarin. Therapeutic INR at 2.5 #7 History of hypertension. #8 Hyperlipidemia. #9 Osteoarthritis. #10 Heart murmur. No significant valvular abnormalities and echocardiogram with a preserved LV function #11 Anemia, chronic #12 chronic, cytopenia #13 E. coli bacteremia, follow blood cultures have been negative Plan: Pulmonary perspective patient is stable, no pulmonary complaints, she is on room air, no fever or chills, she is being treated for MRSA and E. coli infection from her left lower extremity wound, with dynamically stable, no acute events overnight, the plan is for discharge to retirement facility in the next 24 hours. I performed a history & physical examination of the patient and discussed their management with my nurse practitioner, Elena Frederick. I reviewed the nurse practitioner's note and agree with the documented findings and plan of care. Lung sounds are positive for clear breath sounds. The findings and the impression was discussed with the patient. I attest to the documentation by the nurse practitioner. Time with Patient: Less than 30
[2019-01-16] MEDS: ACETAMINOPHEN TAB 325 MG TAB PO PRN (17:46)
[2019-01-16] MEDS ORDERED: VANCOMYCIN 1,750 MG in SODIUM CHLORIDE 0.9% 500 ML 500 ML IVPB SCH (18:00)
--- NOTE | 2019-01-16 21:22 | PN ---
PROGRESS NOTE DATE OF SERVICE: 01/16/2019 This 73-year-old woman who was admitted with CHF, acute exacerbation, also had E coli sepsis. The patient is being closely monitored at this time. The patient also was seen by Infectious Disease and Pulmonology as well as Cardiology. The patient is on IV vancomycin at this time. Past medical history reviewed. PHYSICAL EXAMINATION: Patient is alert, oriented x3. Pulse 70, blood pressure 160/72, respiration 18, temperature 97.2, pulse ox 93% on room air. HEENT: Conjunctivae normal. Oral mucosa moist. NECK: No jugular venous distention. No carotid bruit. No lymph node enlargement. CARDIOVASCULAR SYSTEM: S1, S2 muffled. RESPIRATORY SYSTEM: Breath sounds diminished at the bases. A few scattered rhonchi. ABDOMEN: Soft, non-tender. LEGS: No edema. No swelling. NERVOUS SYSTEM: Diffusely weak. LABS: WBC 5.7, hemoglobin 9.2, platelets 77. Other labs are noted. The most recent cultures are from 01/12/2019 and show anaerobic gram-positive cocci. Otherwise, blood cultures are negative so far. ASSESSMENT: 1. Congestive heart failure, acute exacerbation, with acute on chronic diastolic dysfunction with acute hypoxic respiratory failure, present on admission. 2. Escherichia coli sepsis with severe sepsis, septic shock and hypotension, present on admission. 3. Escherichia coli and methicillin-resistant Staphylococcus aeruginosa from the wound. 4. Gait dysfunction. 5. Urinary tract infection. 6. Hypotension. 7. Atrial fibrillation. 8. History of hyperlipidemia. 9. Obesity with body mass index of 42.5. 10.Social issues. 11.History of degenerative joint disease. 12.FULL CODE. RECOMMENDATIONS AND DISCUSSION: I recommend to continue current medications, continue with the monitoring, symptomatic treatment. Continue with the antibiotics. PT/OT evaluation. Possible ECF rehab once Infectious Disease clears the patient regarding the outpatient antibiotics. Further recommendations to follow. MMODL / IJN: [id number] /
[2019-01-17 06:02] LABS: Anisocytosis Slight; HCT 27.7 % (34.0-46.0); HGB 8.3 gm/dL (11.4-16.0); Hypochromasia Slight; MCH 31.3 pg (25.0-35.0); MCV 104.1 fL (80.0-100.0); Macrocytosis Moderate; Mean Platelet Volume 8.5; RBC 2.66 m/uL (3.80-5.40); RDW 17.8 % (11.5-15.5); WBC 4.9 k/uL (3.8-10.6)
[2019-01-17 06:06] LABS: INR 2.1 (<1.2); Prothrombin Time 20.5 sec (9.0-12.0)
[2019-01-17 06:09] LABS: Platelet Count 75 k/uL (150-450)
[2019-01-17 06:11] LABS: Potassium 3.8 mmol/L (3.5-5.1)
[2019-01-17] MEDS: CARVEDILOL 3.125 MG TAB PO SCH (06:27)
[2019-01-17 06:28] LABS: Lymphocytes # (M) 0.54 k/uL (1.0-4.8); Monocytes # (M) 0.54 k/uL (0-1.0); Myelocytes # (M) 0.05 k/uL (0); Myelocytes % 1 %; Neutrophils # (M) 3.77 k/uL (1.3-7.7); Neutrophils % (M) 77 %; Nucleated Red Blood Cells 0 /100 WBC (0-0); Polychromasia Present; Total Cells Counted 200
[2019-01-17] MEDS: DULoxetine HCL 60 MG CAPSULE.DR PO SCH (08:21)
[2019-01-17] MEDS: AMIODARONE 100 MG TAB PO SCH (08:22)
[2019-01-17] MEDS: FUROSEMIDE 40 MG TAB PO SCH (08:22)
[2019-01-17] MEDS: LISINOPRIL 20 MG TAB PO SCH (08:22)
[2019-01-17] MEDS: ATORVASTATIN 40 MG TAB PO SCH (08:22)
[2019-01-17] MEDS: OXYBUTYNIN 10 MG TAB.ER.24 PO SCH (08:23)
--- NOTE | 2019-01-17 11:09 | P.DS ---
Providers Date of admission: 01/11/19 22:54 Attending physician: Julissa Cardona Consults: 01/11/19 23:05 Consult Physician Routine Consulting Provider: Cardiology Memo Consult Reason/Comments: CHF Do you want consulting provider notified?: Yes 01/12/19 06:37 Consult Physician Routine Consulting Provider: Puneet Julian Consult Reason/Comments: icu transfer/ sepsis/ low blood pressure Do you want consulting provider notified?: Yes, Notify in am 01/12/19 13:29 Consult Physician Routine Consulting Provider: Chance Juan Consult Reason/Comments: wound care- venous stasis ulcer Do you want consulting provider notified?: Yes 01/14/19 20:38 Consult Physician Routine Consulting Provider: Florentin Hallman Consult Reason/Comments: sepsis Do you want consulting provider notified?: Yes Primary care physician: Kendal Bhatia Hospital Course: Final diagnosis CHF acute exacerbation with acute on chronic diastolic dysfunction. Acute hypoxic respiratory failure present on admission. E. coli sepsis with a severe sepsis septic shock and hypotension present on admission E. coli and MRSA from the wound. Gait dysfunction UTI Hypotension Atrial fibrillation History of hyperlipidemia Obesity body mass index of 42.5 Social issues History of DJD Full code. Discharge disposition The patient discharged in a stable condition with guarded prognosis to [facility]. Total time taken 35 minutes. History of present illness This 73-year-old woman with a past medical history multiple medical problems being followed by Dr. Bhatia in the outpatient setting was admitted with the CHF and as well as sepsis with the UTI and E. coli infection. The patient also had the wound infection. Patient was treated with the diuretics. Patient was closely monitored in ICU. Patient was also seen by multiple consultants including cardiology and infectious disease. Medications were adjusted. Patient improved significantly. Patient also had some social issues and please refer to case management social worker case management notes for further information. Patient be discharged in a stable condition with guarded prognosis. The patient with the discharged to [facility] for further evaluation and treatment. On exam vitals are stable. Cardio S1 and S2 normal. Respirator system few scattered rhonchi. Abdomen soft nontender. Leg wound present Please refer to the medication reconciliation sheet for list of medications. I recommended follow-up labs so CBC BMP in the ECF and follow up with the multiple consultants as advised. Patient Condition at Discharge: Serious Plan - Discharge Summary Discharge Rx Participant: No New Discharge Prescriptions: No Action DULoxetine HCL 60 mg PO BID Aspirin 81 mg PO DAILY Lovastatin [Mevacor] 40 mg PO DAILY Oxybutynin Chloride [Ditropan XL] 10 mg PO DAILY Carvedilol [Coreg] 3.125 mg PO BID Acetaminophen Tab [Tylenol] 325 mg PO Q4H PRN PRN Reason: Pain Or Fever > 100.5 Amiodarone [Cordarone] 100 mg PO DAILY Lisinopril [Zestril] 20 mg PO DAILY Warfarin [Coumadin] 5 mg PO SUMOTUTHFR Warfarin [Coumadin] 7.5 mg PO WESA Discharge Medication List DULoxetine HCL 60 mg PO BID 10/20/14 [History] Aspirin 81 mg PO DAILY 06/08/15 [History] Lovastatin [Mevacor] 40 mg PO DAILY 08/31/16 [History] Carvedilol [Coreg] 3.125 mg PO BID 10/03/16 [History] Oxybutynin Chloride [Ditropan XL] 10 mg PO DAILY 10/03/16 [History] Acetaminophen Tab [Tylenol] 325 mg PO Q4H PRN 09/16/18 [History] Amiodarone [Cordarone] 100 mg PO DAILY 01/12/19 [History] Lisinopril [Zestril] 20 mg PO DAILY 01/12/19 [History] Warfarin [Coumadin] 5 mg PO SUMOTUTHFR 01/12/19 [History] Warfarin [Coumadin] 7.5 mg PO WESA 01/12/19 [History] Follow up Appointment(s)/Referral(s): Kendal Bhatia MD [Primary Care Provider] - 1-2 days Activity/Diet/Wound Care/Special Instructions: Medi?
[2019-01-17 11:30] VITALS: RESP 16; TEMP 98.2
[2019-01-17] MEDS: FOLIC ACID 1 MG TAB PO SCH (11:30)
[2019-01-17] MEDS: THIAMINE 100 MG TAB PO SCH (11:30)
[2019-01-17] MEDS: MULTIVITAMINS, THERA 1 EACH TAB PO SCH (11:30)
[2019-01-17 15:13] VITALS: BP 141/66; PULSE 66
== END 2019-01-17 15:50 | DRG 871 ==
LOC: EC 20:40 → 3SCARD 22:54 → 2SICU 01-12 03:31 → 3SCARD 01-14 19:11
PROVIDERS: ADMIT Internal Medicine; ATTEND Internal Medicine
PROC: 05HD33Z Insertion of Infusion Device into Right Cephalic Vein, Percutaneous Approach (ICD-10-PCS; principal; 2019-01-17 14:15)
DX: A41.51 Sepsis due to Escherichia coli [E. coli] (principal); R65.21 Severe sepsis with septic shock; I50.33 Acute on chronic diastolic (congestive) heart failure; J18.1 Lobar pneumonia, unspecified organism; J96.01 Acute respiratory failure with hypoxia; I42.9 Cardiomyopathy, unspecified; L97.929 Non-pressure chronic ulcer of unspecified part of left lower leg with unspecified severity; N17.9 Acute kidney failure, unspecified; N39.0 Urinary tract infection, site not specified; Z68.41 Body mass index [BMI] 40.0-44.9, adult; A41.02 Sepsis due to Methicillin resistant Staphylococcus aureus; D64.9 Anemia, unspecified; E66.9 Obesity, unspecified; E78.5 Hyperlipidemia, unspecified; I11.0 Hypertensive heart disease with heart failure; I25.10 Atherosclerotic heart disease of native coronary artery without angina pectoris; I27.20 Pulmonary hypertension, unspecified; I35.0 Nonrheumatic aortic (valve) stenosis; I48.0 Paroxysmal atrial fibrillation; I73.9 Peripheral vascular disease, unspecified; I87.2 Venous insufficiency (chronic) (peripheral); M19.90 Unspecified osteoarthritis, unspecified site; Z79.01 Long term (current) use of anticoagulants; Z79.82 Long term (current) use of aspirin; Z79.899 Other long term (current) drug therapy; Z82.49 Family history of ischemic heart disease and other diseases of the circulatory system; Z83.3 Family history of diabetes mellitus; Z86.73 Personal history of transient ischemic attack (TIA), and cerebral infarction without residual deficits; Z90.710 Acquired absence of both cervix and uterus
CPT/HCPCS: 36410; 36415; 51702; 71045; 71046; 76937; 80048; 80053; 81001; 83605; 83880; 84443; 84484; 85025; 85027; 85610; 85730; 87040; 87070; 87075; 87077; 87086; 87186; 87205; 93005; 93306; 94660; 96365; 96375; 99291

== ENCOUNTER 2019-01-27 11:11 | Emergency (ER) | payer MEDICARE ==
[2019-01-27] MEDS ORDERED: SODIUM CHLORIDE 0.9% 1,000 ML IV STA (11:33)
--- NOTE | 2019-01-27 11:33 | ED ---
Recheck HPI - General Chief Complaint: Recheck/Abnormal Lab/Rx Stated Complaint: weakness Source: EMS, RN notes reviewed, old records reviewed Mode of arrival: EMS Limitations: no limitations - History of Present Illness Initial Comments: This is a 73-year-old female the ER for evaluation of possible ALLERGIC reaction. Patient is a complex medical history, poor historian is brought in by EMS provides history as well as patient's charting. Patient per EMS is brought in for evaluation of swollen lips which they believe may be an ALLERGIC reaction to IV antibiotics, cefotetan that she is getting for urinary tract infection which she has been on since . Patient has been receiving Benadryl daily but symptoms have progressed swelling is worse today than it has been in the past. Patient himself denies no shortness of breath. She does feel like her lips are swollen feels like her lips and mouth are very dry. Denies any other complaints MD Complaint: other (Lip swelling) -: week(s) Returns Today for: other (ALLERGIC reaction) Symptoms Since Prior Visit: worsening swelling Associated Symptoms: none - Related Data Home Medications Medication Instructions Recorded Confirmed DULoxetine HCL 60 mg PO BID 10/20/14 01/27/19 Aspirin 81 mg PO HS 06/08/15 01/27/19 Carvedilol [Coreg] 3.125 mg PO BID 10/03/16 01/27/19 Oxybutynin Chloride [Ditropan XL] 10 mg PO DAILY 10/03/16 01/27/19 Acetaminophen Tab [Tylenol] 325 mg PO Q4H PRN 09/16/18 01/27/19 Lisinopril [Zestril] 20 mg PO DAILY 01/12/19 01/27/19 Amiodarone [Cordarone] 100 mg PO DAILY 01/27/19 01/27/19 Atorvastatin [Lipitor] 40 mg PO HS@199901/27/19 01/27/19 Folic Acid 1 mg PO DAILY 01/27/19 01/27/19 Furosemide [Lasix] 40 mg PO BID@0700,1600 01/27/19 01/27/19 Multivitamins, Thera [Multivitamin 1 tab PO HS 01/27/19 01/27/19 (formulary)] Thiamine [Vitamin B-1] 100 mg PO HS 01/27/19 01/27/19 Warfarin [Coumadin] 1 mg PO SUMOTUWETHFR 01/27/19 01/27/19 Warfarin [Coumadin] 2 mg PO HS 01/27/19 01/27/19 diphenhydrAMINE [Benadryl] 50 mg PO Q6H PRN 01/27/19 01/27/19 Previous Rx's Medication Instructions Recorded cefTRIAXone [Rocephin] 2,000 mg IVP Q24HR #14 ml 01/17/19 Allergies Allergy/AdvReac Type Severity Reaction Status Date / Time No Known Allergies Allergy Verified 01/27/19 11:19 Review of Systems ROS Statement: Those systems with pertinent positive or pertinent negative responses have been documented in the HPI. ROS Other: All systems not noted in ROS Statement are negative. Past Medical History Past Medical History: Atrial Fibrillation, Heart Failure, CVA/TIA, Hyperlipidemia, Hypertension, Liver Disease, Osteoarthritis (OA) Additional Past Medical History / Comment(s): TIA, heart murmur, poor circulation in legs, swelling in lower legs, hepatitis age 14, urinary leakage/incontinence History of Any Multi-Drug Resistant Organisms: None Reported Past Surgical History: Appendectomy, Cholecystectomy, Hysterectomy, Orthopedic Surgery Additional Past Surgical History / Comment(s): Bilateral cataracts, arthroscopy both knees, D&C, jose d, keo cataracts Past Anesthesia/Blood Transfusion Reactions: No Reported Reaction, Motion Sickness Additional Past Anesthesia/Blood Transfusion Reaction / Comment(s): stated has never recieved blood Past Psychological History: No Psychological Hx Reported Smoking Status: Never smoker Past Alcohol Use History: None Reported Past Drug Use History: None Reported - Past Family History Sister(s) Family Medical History: Cancer Brother(s) Family Medical History: Cancer Mother Family Medical History: Dementia, Diabetes Mellitus Additional Family Medical History / Comment(s): age 89 Father Additional Family Medical History / Comment(s): age 70's from heart attack General Exam - General Exam Comments Initial Comments: Patient does have upper and lower lip swelling, no tongue swelling, no stridor at rest Limitations: no limitations General appearance: alert, in no apparent distress Head exam: Present: atraumatic, normocephalic, normal inspection Eye exam: Present: normal appearance, PERRL, EOMI. Absent: scleral icterus, conjunctival injection, periorbital swelling ENT exam: Present: normal exam, mucous membranes moist Neck exam: Present: normal inspection. Absent: tenderness, meningismus, lymphadenopathy Respiratory exam: Present: normal lung sounds bilaterally. Absent: respiratory distress, wheezes, rales, rhonchi, stridor Cardiovascular Exam: Present: regular rate, normal rhythm, normal heart sounds. Absent: systolic murmur, diastolic murmur, rubs, gallop, clicks GI/Abdominal exam: Present: soft, normal bowel sounds. Absent: distended, tenderness, guarding, rebound, rigid Extremities exam: Present: normal inspection, full ROM, normal capillary refill. Absent: tenderness, pedal edema, joint swelling, calf tenderness Back exam: Present: normal inspection Neurological exam: Present: alert, oriented X3, CN II-XII intact Psychiatric exam: Present: normal affect, normal mood Skin exam: Present: warm, dry, intact, normal color. Absent: rash Course Vital Signs 01/27/19 11:21 Temperature 98.6 F Pulse Rate 83 Respiratory 20 Rate Blood Pressure 139/83 O2 Sat by Pulse 98 Oximetry - Reevaluation(s) Reevaluation #1: 01/27/19 12:29 Medical records reviewed Reevaluation #2: 01/27/19 12:29 Patient given steroids and antihistamines here in the ER does have improvement, improving with hydration Medical Decision Making - Medical Decision Making 43 female the ER for ALLERGIC reaction, patient given steroids will be discharg ed home. A she has red cells in the urine no white cells patient can stop IV antibiotics and can be discharged home - Lab Data Result diagrams: 01/27/19 11:45 01/27/19 11:45 Lab Results 01/27/19 01/27/19 01/27/19 Range/Units 11:45 11:45 11:45 WBC 5.0 (3.8-10.6) k/uL RBC 2.68 L (3.80-5.40) m/uL Hgb 9.0 L (11.4-16.0) gm/dL Hct 27.4 L (34.0-46.0) % MCV 102.1 H (80.0-100.0) fL MCH 33.4 (25.0-35.0) pg MCHC 32.7 (31.0-37.0) g/dL RDW 18.3 H (11.5-15.5) % Plt Count 145 L D (150-450) k/uL Hypochromasia Slight Anisocytosis Slight Macrocytosis Moderate Sodium 142 (137-145) mmol/L Potassium 4.5 (3.5-5.1) mmol/L Chloride 109 H (98-107) mmol/L Carbon Dioxide 31 H (22-30) mmol/L Anion Gap 2 mmol/L BUN 31 H (7-17) mg/dL Creatinine 1.07 H (0.52-1.04) mg/dL Est GFR (CKD-EPI)AfAm 59 (>60 ml/min/1.73 sqM) Est GFR (CKD-EPI)NonAf 52 (>60 ml/min/1.73 sqM) Glucose 67 L (74-99) mg/dL Calcium 8.1 L (8.4-10.2) mg/dL Phosphorus 3.3 (2.5-4.5) mg/dL Magnesium 1.9 (1.6-2.3) mg/dL Total Bilirubin 1.6 H (0.2-1.3) mg/dL AST 103 H (14-36) U/L ALT 44 (9-52) U/L Alkaline Phosphatase 151 H (38-126) U/L Creatine Kinase 35 (30-135) U/L Troponin I (0.000-0.034) ng/mL NT-Pro-B Natriuret Pep 1230 pg/mL Total Protein 6.9 (6.3-8.2) g/dL Albumin 2.1 L (3.5-5.0) g/dL Urine Color Urine Appearance (Clear) Urine pH (5.0-8.0) Ur Specific Lyman (1.001-1.035) Urine Protein (Negative) Urine Glucose (UA) (Negative) Urine Ketones (Negative) Urine Blood (Negative) Urine Nitrite (Negative) Urine Bilirubin (Negative) Urine Urobilinogen (<2.0) mg/dL Ur Leukocyte Esterase (Negative) Urine RBC (0-5) /hpf Urine WBC (0-5) /hpf Ur Squamous Epith Cells (0-4) /hpf Urine Bacteria (None) /hpf Hyaline Casts (0-2) /lpf Urine Mucus (None) /hpf 01/27/19 01/27/19 Range/Units 11:45 12:20 WBC (3.8-10.6) k/uL RBC (3.80-5.40) m/uL Hgb (11.4-16.0) gm/dL Hct (34.0-46.0) % MCV (80.0-100.0) fL MCH (25.0-35.0) pg MCHC (31.0-37.0) g/dL RDW (11.5-15.5) % Plt Count (150-450) k/uL Hypochromasia Anisocytosis Macrocytosis Sodium (137-145) mmol/L Potassium (3.5-5.1) mmol/L Chloride (98-107) mmol/L Carbon Dioxide (22-30) mmol/L Anion Gap mmol/L BUN (7-17) mg/dL Creatinine (0.52-1.04) mg/dL Est GFR (CKD-EPI)AfAm (>60 ml/min/1.73 sqM) Est GFR (CKD-EPI)NonAf (>60 ml/min/1.73 sqM) Glucose (74-99) mg/dL Calcium (8.4-10.2) mg/dL Phosphorus (2.5-4.5) mg/dL Magnesium (1.6-2.3) mg/dL Total Bilirubin (0.2-1.3) mg/dL AST (14-36) U/L ALT (9-52) U/L Alkaline Phosphatase (38-126) U/L Creatine Kinase (30-135) U/L Troponin I <0.012 (0.000-0.034) ng/mL NT-Pro-B Natriuret Pep pg/mL Total Protein (6.3-8.2) g/dL Albumin (3.5-5.0) g/dL Urine Color Yellow Urine Appearance Clear (Clear) Urine pH 5.5 (5.0-8.0) Ur Specific Lyman 1.015 (1.001-1.035) Urine Protein Trace H (Negative) Urine Glucose (UA) Negative (Negative) Urine Ketones Negative (Negative) Urine Blood Moderate H (Negative) Urine Nitrite Negative (Negative) Urine Bilirubin Negative (Negative) Urine Urobilinogen <2.0 (<2.0) mg/dL Ur Leukocyte Esterase Negative (Negative) Urine RBC >182 H (0-5) /hpf Urine WBC 6 H (0-5) /hpf Ur Squamous Epith Cells 3 (0-4) /hpf Urine Bacteria Rare H (None) /hpf Hyaline Casts 4 H (0-2) /lpf Urine Mucus Rare H (None) /hpf - EKG Data -: EKG Interpreted by Me (EKG shows ectopic rhythm of 61, LA 180, QRS 100, QTC 501) Disposition Clinical Impression: Allergic reaction Disposition: HOME SELF-CARE Condition: Good Instructions (If sedation given, give patient instructions): Antibiotic Medication Allergy (ED) Additional Instructions: stop taking cephalosporin, no need for antibiotic as UTI is cleared Is patient prescribed a controlled substance at d/c from ED?: No Referrals: Kendal Bhatia MD [Primary Care Provider] - 1-2 days
[2019-01-27 12:18] LABS: Albumin 2.1 g/dL (3.5-5.0); Calcium 8.1 mg/dL (8.4-10.2); Magnesium 1.9 mg/dL (1.6-2.3); Phosphorus 3.3 mg/dL (2.5-4.5); Potassium 4.5 mmol/L (3.5-5.1); Total Bilirubin 1.6 mg/dL (0.2-1.3); Total Protein 6.9 g/dL (6.3-8.2)
[2019-01-27 12:26] LABS: Anisocytosis Slight; HCT 27.4 % (34.0-46.0); Hypochromasia Slight; MCH 33.4 pg (25.0-35.0); MCHC 32.7 g/dL (31.0-37.0); MCV 102.1 fL (80.0-100.0); Macrocytosis Moderate; Mean Platelet Volume 8.1; RBC 2.68 m/uL (3.80-5.40); RDW 18.3 % (11.5-15.5)
[2019-01-27] MEDS ORDERED: DEXAMETHASONE SOD PHOSPHATE 10 MG/ML 1 ML VIAL IV STA (12:29)
[2019-01-27] MEDS ORDERED: FAMOTIDINE 20 MG/2 ML VIAL IV STA (12:29)
[2019-01-27 12:33] LABS: Platelet Count 145 k/uL (150-450)
[2019-01-27 12:47] LABS: Appearance,Urine Clear (Clear); Bacteria,Urine Rare /hpf; Bilirubin,Urine Negative (Negative); Blood,Urine Moderate (Negative); Color,Urine Yellow; Glucose,Urine (UA) Negative (Negative); Hyaline Casts,Urine 4 /lpf (0-2); Ketones,Urine Negative (Negative); Leukocyte Esterase,Urine Negative (Negative); Mucus,Urine Rare /hpf; Nitrite,Urine Negative (Negative); PH, Urine 5.5 (5.0-8.0); Protein,Urine Trace (Negative); RBC,Urine >182 /hpf (0-5); Specific Gravity,Urine 1.015 (1.001-1.035); Squamous Epithelial Cell,Urine 3 /hpf (0-4); Urobilinogen,Urine <2.0 mg/dL (<2.0); WBC,Urine 6 /hpf (0-5)
[2019-01-27 13:19] LABS: Lymphocytes # (M) 0.65 k/uL (1.0-4.8); Neutrophils # (M) 3.85 k/uL (1.3-7.7); Neutrophils % (M) 77 %; Nucleated Red Blood Cells 0 /100 WBC (0-0); Total Cells Counted 100
[2019-01-27 13:42] VITALS: BP 116/75; PULSE 89; RESP 18; TEMP 98.1
== END 2019-01-27 14:15 | disposition home or self-care (01) ==
LOC: EC 11:11
DX: T78.40XA Allergy, unspecified, initial encounter (principal); R22.0 Localized swelling, mass and lump, head; I48.91 Unspecified atrial fibrillation; I11.0 Hypertensive heart disease with heart failure; I50.9 Heart failure, unspecified; E78.5 Hyperlipidemia, unspecified; M19.90 Unspecified osteoarthritis, unspecified site; Z86.73 Personal history of transient ischemic attack (TIA), and cerebral infarction without residual deficits; Z86.19 Personal history of other infectious and parasitic diseases; Z79.82 Long term (current) use of aspirin; Z79.01 Long term (current) use of anticoagulants; Z79.899 Other long term (current) drug therapy
CPT/HCPCS: 36415; 93005; 83880; 80053; 82550; 83735; 84100; 84484; 85025; 81001; 87086; 99285; 96374; 96375; 96361; J1100